=== PATIENT | female | born 1960 | race Hispanic/Latino ===

== ENCOUNTER 2017-11-13 13:53 | Inpatient (IN) | payer BC ==
[~2017-11-13] VITALS: Ht 162.6 cm; Wt 84.4 kg
[~2017-11-13 13:53] MED LIST: FISH OIL 1,0001 EAC2 PO; METFORMIN HCL500 MG PO; VIT D PO
[2017-11-13] MEDS ORDERED: SODIUM CHLORIDE 0.9% 1000ML 1,000 ML IV STA (14:18)
[2017-11-13 14:32] LABS: BASOPHILS % 0.4 % (0.0-1.0); EOSINOPHILS % 0.3 % (0.0-6.0); HEMATOCRIT 33.3 % (34.2-44.1); MEAN CORPUSCULAR HEMOGLOBIN 31.4 pg (28-32); MEAN CORPUSCULAR VOLUME 95.1 fL (81-99); MONOCYTES # (AUTO) 1.2 (0.2-0.8); MONOCYTES % 10.7 % (4.4-11.3); NEUTROPHILS # (AUTO) 8.5 (2.1-6.9); NEUTROPHILS % 79.2 % (38.7-80.0); PLATELET COUNT 126 x10e3/uL (140-360); RED CELL DISTRIBUTION WIDTH 15.1 % (11.7-14.4)
[2017-11-13 14:42] LABS: INR 1.32; PROTHROMBIN TIME 17.5 seconds (11.9-14.5)
[2017-11-13 14:43] LABS: PARTIAL THROMBOPLASTIN TIME 34.9 seconds (23.8-35.5)
[2017-11-13 14:52] LABS: ALBUMIN/GLOBULIN RATIO 0.4 (0.8-2.0); ANION GAP 12.9 mmol/L (8-16); CALCIUM 8.3 mg/dL (8.4-10.2); CREATININE, SERUM 1.04 mg/dL (0.57-1.11); POTASSIUM 3.9 mmol/L (3.5-5.1)
--- NOTE | 2017-11-13 14:59 | Diagnostic Imaging Report ---
EXAM: CHEST SINGLE (PORTABLE), AP Portable DATE: 11/13/2017 2:18 PM Time stamp on exam: 2:37 PM INDICATION: Foot infection COMPARISON: None FINDINGS: LINES/TUBES: None LUNGS: No consolidations or edema. PLEURA: No effusions or pneumothorax. HEART AND MEDIASTINUM: Mild cardiac prominence. BONES AND SOFT TISSUES: No acute findings. IMPRESSION: No acute thoracic abnormality. Signed by: Dr. Gio Del Valle DO on 11/13/2017 2:56 PM
[2017-11-13] MEDS: VANCOMYCIN 1GM/NS 250 ML 250 ML IV SCH (15:04)
--- NOTE | 2017-11-13 15:20 | Diagnostic Imaging Report ---
Exam: Right foot 2 views History: Pain Comparison: None. Findings: Soft tissue swelling and bony destruction of the distal phalanx of the second toe. Mild hindfoot arthrosis. Plantar calcaneal enthesophyte. Impression: Osteomyelitis of the second toe distal phalanx. MRI may be of benefit for evaluation of extent. Signed by: Dr. Chad Méndez M.D. on 11/13/2017 3:16 PM
[2017-11-13] MEDS ORDERED: LABETALOL HCL 5 MG/ML 20ML VIAL IV STA (15:56)
[2017-11-13] MEDS ORDERED: MORPHINE SULFATE 2 MG/ML SYR IV PRN (16:15)
[2017-11-13 18:13] LABS: BILIRUBIN,URINE 1+ (NEGATIVE); CLARITY,URINE SL CLOUDY (CLEAR); COLOR,URINE STRAW (YELLOW); KETONES,URINE NEGATIVE (NEGATIVE); LEUKOCYTE ESTERASE ,URINE NEGATIVE (NEGATIVE); NITRITE,URINE NEGATIVE (NEGATIVE); PROTEIN,URINE DIPSTICK 2+ (NEGATIVE); URINE UROBILINOGEN 8 mg/dL (0.2 - 1)
[2017-11-13 18:23] LABS: AMORPHOUS SEDIMENT,URINE FEW (FEW); BACTERIA,URINE MODERATE /HPF; EPITHELIAL CELLS,URINE FEW /LPF; HYALINE CASTS 0-1 (0-1); MUCUS,URINE FEW (RARE)
[2017-11-13] MEDS ORDERED: DEXTROSE 50% SYRINGE 50 ML IV PRN (19:15)
[2017-11-13] MEDS ORDERED: ACETAMINOPHEN/CODEINE 300MG - 30MG TAB PO PRN (19:15)
[2017-11-13 22:00] VITALS: BP 177/90
[2017-11-13] MEDS ORDERED: SODIUM CHLORIDE 0.9% 1000ML 1,000 ML ONE (22:18)
[2017-11-13 22:37] VITALS: BP 177/96
[2017-11-13] MEDS: INSULIN LISPRO 100 UNIT/1 ML 3ML VIAL SQ SCH (22:53)
[2017-11-13] MEDS: PIPER-TAZ 3.375 GM 50 ML IV SCH (22:54)
[2017-11-14] VITALS (8 sets, daily range): BP systolic 127–165; BP diastolic 66–81
[2017-11-14] MEDS: VANCOMYCIN 1GM/NS 250 ML 250 ML IV SCH ×2 (02:41→15:00)
[2017-11-14 04:25] LABS: BASOPHILS # (AUTO) 0.1 (0.0-0.1); BASOPHILS % 0.6 % (0.0-1.0); EOSINOPHILS # (AUTO) 0.1 (0.0-0.4); EOSINOPHILS % 1.7 % (0.0-6.0); HEMOGLOBIN 8.8 g/dL (12.0-16.0); LYMPHOCYTES # (AUTO) 1.4 (1.0-3.2); LYMPHOCYTES % 16.9 % (18.0-39.1); MEAN CORPUSCULAR HEMOGLOBIN 31.9 pg (28-32); MEAN CORPUSCULAR HGB CONC 33.8 g/dL (31-35); MEAN CORPUSCULAR VOLUME 94.2 fL (81-99); MONOCYTES # (AUTO) 1.4 (0.2-0.8); MONOCYTES % 16.4 % (4.4-11.3); NEUTROPHILS # (AUTO) 5.4 (2.1-6.9); NEUTROPHILS % 63.9 % (38.7-80.0); PLATELET COUNT 92 x10e3/uL (140-360); RED BLOOD COUNT 2.76 x10e6/uL (3.6-5.1); RED CELL DISTRIBUTION WIDTH 15.3 % (11.7-14.4)
[2017-11-14 04:47] LABS: ANION GAP 11.4 mmol/L (8-16); BLOOD UREA NITROGEN 17 mg/dL (7-26); BUN/CREATININE RATIO 21 (6-25); CALCIUM 7.5 mg/dL (8.4-10.2); CARBON DIOXIDE 24 mmol/L (22-29); CHLORIDE 103 mmol/L (98-107); CREATININE, SERUM 0.82 mg/dL (0.57-1.11); EST GLOMERULAR FILTRATION RATE > 60 ML/MIN (60-); GLUCOSE 152 mg/dL (74-118); POTASSIUM 3.4 mmol/L (3.5-5.1); SODIUM 135 mmol/L (136-145)
[2017-11-14 04:48] LABS: MAGNESIUM 0.9 MG/DL (1.3-2.1)
[2017-11-14] MEDS: ONDANSETRON HCL INJ 2 MG/ML VIAL IV PRN (06:14)
[2017-11-14] MEDS: PIPER-TAZ 3.375 GM 50 ML IV SCH ×3 (06:14→21:07)
[2017-11-14] MEDS: ACETAMINOPHEN 325 MG TAB PO PRN ×2 (06:14→21:08)
[2017-11-14] MEDS ORDERED: POTASSIUM CHLORIDE 20 MEQ TAB CR PO STA (07:04)
[2017-11-14] MEDS ORDERED: MAGNESIUM SULFATE 2GM/50ML 50 ML IV ONE (07:15)
[2017-11-14] MEDS: MAGNESIUM OXIDE 400 MG TAB PO SCH ×2 (08:28→17:36)
[2017-11-14] MEDS: OYST-CAL-D 500MG TABLET PO SCH ×2 (08:28→17:36)
[2017-11-14] MEDS: FAMOTIDINE 20 MG TAB PO SCH ×2 (08:28→17:36)
[2017-11-14] MEDS: INSULIN LISPRO 100 UNIT/1 ML 3ML VIAL SQ SCH ×4 (08:29→20:59)
[2017-11-14] MEDS: MELATONIN 5 MG TABLET PO PRN (21:08)
[2017-11-15] VITALS (8 sets, daily range): BP systolic 139–172; BP diastolic 60–87
[2017-11-15] MEDS: VANCOMYCIN 1GM/NS 250 ML 250 ML IV SCH ×2 (02:28→15:00)
[2017-11-15 05:00] LABS: EOSINOPHILS % 2.8 % (0.0-6.0); HEMATOCRIT 26.3 % (34.2-44.1); HEMOGLOBIN 8.8 g/dL (12.0-16.0); LYMPHOCYTES # (AUTO) 1.5 (1.0-3.2); LYMPHOCYTES % 20.7 % (18.0-39.1); MEAN CORPUSCULAR HEMOGLOBIN 31.3 pg (28-32); MEAN CORPUSCULAR HGB CONC 33.5 g/dL (31-35); MEAN CORPUSCULAR VOLUME 93.6 fL (81-99); MONOCYTES # (AUTO) 1.1 (0.2-0.8); MONOCYTES % 15.4 % (4.4-11.3); NEUTROPHILS # (AUTO) 4.3 (2.1-6.9); NEUTROPHILS % 59.8 % (38.7-80.0); PLATELET COUNT 95 x10e3/uL (140-360); RED BLOOD COUNT 2.81 x10e6/uL (3.6-5.1); RED CELL DISTRIBUTION WIDTH 15.1 % (11.7-14.4)
[2017-11-15 05:01] LABS: BASOPHILS # (AUTO) 0.1 (0.0-0.1); EOSINOPHILS # (AUTO) 0.2 (0.0-0.4)
[2017-11-15 05:05] LABS: % IRON SATURATION 18 % (15-50); ANION GAP 10.6 mmol/L (8-16); BLOOD UREA NITROGEN 14 mg/dL (7-26); BUN/CREATININE RATIO 18 (6-25); CALCIUM 7.4 mg/dL (8.4-10.2); CARBON DIOXIDE 23 mmol/L (22-29); CHLORIDE 106 mmol/L (98-107); CREATININE, SERUM 0.77 mg/dL (0.57-1.11); EST GLOMERULAR FILTRATION RATE > 60 ML/MIN (60-); GLUCOSE 99 mg/dL (74-118); IRON 38 ug/dL (50-170); MAGNESIUM 1.2 MG/DL (1.3-2.1); POTASSIUM 3.6 mmol/L (3.5-5.1); SODIUM 136 mmol/L (136-145); TOTAL IRON BINDING CAPACITY 207 ug/dL (261-478); TRANSFERRIN 148 mg/dL (180-382)
[2017-11-15 05:15] LABS: ALBUMIN 1.5 g/dL (3.5-5.0); BILIRUBIN,DIRECT 0.8 mg/dL (0.0-0.5)
[2017-11-15 05:32] LABS: CHOL/HDL RATIO 6.5 (3.0-3.6)
[2017-11-15] MEDS: PIPER-TAZ 3.375 GM 50 ML IV SCH ×3 (05:35→22:13)
[2017-11-15 06:06] LABS: FOLATE 13.6 ng/mL (7.0-15.4)
[2017-11-15] MEDS: INSULIN LISPRO 100 UNIT/1 ML 3ML VIAL SQ SCH ×4 (07:30→20:35)
[2017-11-15] MEDS: FAMOTIDINE 20 MG TAB PO SCH ×2 (08:34→17:16)
[2017-11-15] MEDS: MAGNESIUM OXIDE 400 MG TAB PO SCH ×2 (08:34→17:16)
[2017-11-15] MEDS: OYST-CAL-D 500MG TABLET PO SCH ×2 (08:37→17:16)
[2017-11-15] MEDS ORDERED: MAGNESIUM SULFATE 2GM/50ML 50 ML IV ONE (09:00)
[2017-11-15] MEDS ORDERED: MAGNESIUM OXIDE 400 MG TAB PO SCH (09:00)
[2017-11-15] MEDS: DOCUSATE SODIUM 100 MG CAP PO SCH ×2 (09:00→16:48)
[2017-11-15] MEDS ORDERED: OYST-CAL-D 500MG TABLET PO SCH (09:00)
[2017-11-15] MEDS: ASCORBIC ACID 500 MG TAB PO SCH ×2 (09:18→17:16)
[2017-11-15] MEDS: MULTIVITAMINS/MINERALS TAB PO SCH (09:18)
[2017-11-15] MEDS: ZINC SULFATE 220 MG CAP PO SCH ×2 (09:18→17:16)
[2017-11-15] MEDS ORDERED: CALCIUM GLUCONATE 10% INJ 9.3 MEQ in SODIUM CHLORIDE 0.9% 100 ML 100 ML IV ONE (11:00)
[2017-11-15] MEDS ORDERED: LIDOCAINE HCL 2% LOCAL 20 ML VIAL INJ ONE ×2 (11:30→15:30)
[2017-11-15] MEDS: COLLAGENASE 5 GM TUBE TOP SCH (16:47)
[2017-11-15] MEDS: FERROUS SULFATE 325 MG TAB PO SCH (17:16)
[2017-11-15] MEDS: MELATONIN 5 MG TABLET PO PRN (20:35)
--- NOTE | 2017-11-15 22:54 | Consultation ---
DATE OF CONSULTATION: November 15, 2017 REASON FOR CONSULTATION: Osteomyelitis. HISTORY: this patient who was seen on November 14, but dictated the next day. She is a very pleasant 57-year-old white female with history of diabetes mellitus, history of neuropathy, peripheral vascular disease, comes in with redness and swelling of her right second toe. The patient had this for few weeks now. Apparently, she took oral antibiotic without any improvement. The toe was getting progressively worse, red, and swollen. She went to see Dr. Robles who asked to come to the hospital. The patient has been seeing Dr. Robles for the toe infection for months, but it is getting progressively worse. Patient is being admitted. Infectious disease was consulted. PAST MEDICAL HISTORY: Diabetes mellitus. PAST SURGICAL HISTORY: She denies. ALLERGIES: NKA. SOCIAL HISTORY: There is no smoking, drug abuse, alcohol abuse. FAMILY HISTORY: Diabetes mellitus and hypertension. REVIEW OF SYSTEMS: HEENT: Negative. PULMONARY: Negative. CARDIAC: Negative. : Negative. SKIN: There is no rash. PHYSICAL EXAMINATION: GENERAL: She is currently alert, oriented, does not seem to be in acute distress. VITAL SIGNS: Stable, currently afebrile. HEENT: She does not appear icteric. Normocephalic. NECK: Supple. No JVD. No lymphadenopathy. No thyromegaly. CHEST: Clear bilaterally. HEART: S1 and S2. No S3, S4, murmur. ABDOMEN: Soft. Bowel sounds present. No tenderness. EXTREMITIES: No edema. On right third and second toe, there is erythema, there is edema, there is an ulcer toe, deep subcutaneous tissue with somewhat skin discoloration. LABS: White count 10.72, hemoglobin 11, hematocrit 33. Sodium of 136, potassium 3.6, creatinine 0.77. Bilirubin was 1.7, albumin 1.5. IMPRESSION: Osteomyelitis of the foot. Agree with magnetic resonance imaging. Agree with surgical debridement . Also recommend vascular workup. Agree with vancomycin and Zosyn for now. Will need a peripherally inserted central catheter line, 8 weeks of intravenous antibiotic. Will arrange outpatient intravenous antibiotic. Will follow with you. Job#: [id number]
[2017-11-16] VITALS (7 sets, daily range): BP systolic 130–171; BP diastolic 67–91
[2017-11-16] MEDS: VANCOMYCIN 1GM/NS 250 ML 250 ML IV SCH ×2 (02:42→16:11)
[2017-11-16 05:31] LABS: BASOPHILS # (AUTO) 0.1 (0.0-0.1); EOSINOPHILS # (AUTO) 0.2 (0.0-0.4); EOSINOPHILS % 2.1 % (0.0-6.0); HEMATOCRIT 25.8 % (34.2-44.1); HEMOGLOBIN 8.6 g/dL (12.0-16.0); LYMPHOCYTES # (AUTO) 1.4 (1.0-3.2); MEAN CORPUSCULAR HEMOGLOBIN 31.2 pg (28-32); MEAN CORPUSCULAR HGB CONC 33.3 g/dL (31-35); MEAN CORPUSCULAR VOLUME 93.5 fL (81-99); MONOCYTES # (AUTO) 1.1 (0.2-0.8); NEUTROPHILS # (AUTO) 4.5 (2.1-6.9); NEUTROPHILS % 62.6 % (38.7-80.0); PLATELET COUNT 94 x10e3/uL (140-360); RED BLOOD COUNT 2.76 x10e6/uL (3.6-5.1)
[2017-11-16] MEDS: PIPER-TAZ 3.375 GM 50 ML IV SCH ×3 (05:42→21:26)
[2017-11-16 05:57] LABS: ALANINE AMINOTRANSFERASE 18 IU/L (0-55); ALBUMIN 1.5 g/dL (3.5-5.0); ALKALINE PHOSPHATASE 128 IU/L (40-150); ANION GAP 10.9 mmol/L (8-16); BILIRUBIN,DIRECT 0.8 mg/dL (0.0-0.5); BLOOD UREA NITROGEN 14 mg/dL (7-26); BUN/CREATININE RATIO 19 (6-25); CARBON DIOXIDE 23 mmol/L (22-29); CHLORIDE 107 mmol/L (98-107); CREATININE, SERUM 0.73 mg/dL (0.57-1.11); EST GLOMERULAR FILTRATION RATE > 60 ML/MIN (60-); GLUCOSE 84 mg/dL (74-118); MAGNESIUM 1.3 MG/DL (1.3-2.1); POTASSIUM 3.9 mmol/L (3.5-5.1); SODIUM 137 mmol/L (136-145)
[2017-11-16] MEDS: INSULIN LISPRO 100 UNIT/1 ML 3ML VIAL SQ SCH ×4 (07:30→21:00)
[2017-11-16] MEDS: COLLAGENASE 5 GM TUBE TOP SCH (09:00)
[2017-11-16] MEDS: ZINC SULFATE 220 MG CAP PO SCH ×2 (09:09→16:35)
[2017-11-16] MEDS: FERROUS SULFATE 325 MG TAB PO SCH ×2 (09:09→16:35)
[2017-11-16] MEDS: DOCUSATE SODIUM 100 MG CAP PO SCH ×2 (09:09→16:35)
[2017-11-16] MEDS: MULTIVITAMINS/MINERALS TAB PO SCH (09:09)
[2017-11-16] MEDS: ASCORBIC ACID 500 MG TAB PO SCH ×2 (09:09→16:35)
[2017-11-16] MEDS: FAMOTIDINE 20 MG TAB PO SCH ×2 (09:09→16:35)
[2017-11-16] MEDS: MAGNESIUM OXIDE 400 MG TAB PO SCH ×3 (09:09→20:09)
[2017-11-16] MEDS: OYST-CAL-D 500MG TABLET PO SCH ×3 (09:09→20:09)
--- NOTE | 2017-11-16 10:28 | Diagnostic Imaging Report ---
PROCEDURE: CHEST XRAY LINE PLACEMENT COMPARISON: None. INDICATIONS: PICC LINE PLACEMENT FINDINGS: See conclusion CONCLUSION: Tip of right upper extremity PICC projects over the low superior vena cava. Lung volumes are low with subsegmental atelectasis in the bases. Dictated by: Thee Hong M.D. on 11/16/2017 at 10:36 Electronically approved by: Thee Hong M.D. on 11/16/2017 at 10:36
--- NOTE | 2017-11-16 11:05 | Diagnostic Imaging Report ---
PROCEDURE:US ABDOMEN LIMITED COMPARISON:None. INDICATIONS:TRANSMINITIS TECHNIQUE: Menezes-scale and color doppler transverse and longitudinal images of the right upper quadrant of the abdomen were obtained. FINDINGS: Liver: 16.9 cm in length in the right midclavicular line. Coarsened parenchymal echotexture with nodularity. No focal mass. Main portal vein: 1.1 cm in caliber. Hepatopedal flow. Gallbladder: No shadowing calculus, wall thickening or pericholecystic fluid. Common Bile Duct: 0.6 cm in caliber. Sonographic Solano's sign: Reported as negative. Right kidney: 12.7 cm in length . Normal renal cortical echogenicity. No solid masses or hydronephrosis. Pancreas: Poorly visualized due to overlying bowel gas. Inferior vena cava: Patent Aorta: Non-aneurysmal Ascites: Small volume ascites throughout the abdomen. CONCLUSION: Hepatic cirrhosis with portal hypertension evidenced by small volume ascites. Dictated by: Thee Hong M.D. on 11/16/2017 at 11:13 Electronically approved by: Thee Hong M.D. on 11/16/2017 at 11:13
--- NOTE | 2017-11-16 11:27 | Diagnostic Imaging Report ---
Exam: Right foot 3 views History: Status post debridement Comparison: 11/13/2017 Findings: Interval debridement and amputation of the distal phalanx of the second digit. Expected subcutaneous gas and soft tissue swelling. No acute fracture. Impression: Postsurgical changes of the second digit as above. Signed by: Dr. Thee Hong M.D. on 11/16/2017 11:23 AM
[2017-11-16] MEDS: HYDRALAZINE HCL 20 MG/ML VIAL IV PRN ×2 (12:34→21:44)
[2017-11-16] MEDS ORDERED: MORPHINE SULFATE INJ 4 MG/ML INJ IV PRN (13:00)
[2017-11-16] MEDS ORDERED: MAGNESIUM SULFATE 2GM/50ML 50 ML IV ONE (19:15)
[2017-11-16] MEDS ORDERED: CALCIUM GLUCONATE 10% INJ 9.3 MEQ in SODIUM CHLORIDE 0.9% 100 ML 100 ML IV ONE (19:15)
[2017-11-16] MEDS: CHOLESTYRAMINE 4 GM PACKET PO SCH (20:09)
[2017-11-17] VITALS (7 sets, daily range): BP systolic 98–167; BP diastolic 53–95
[2017-11-17] MEDS: VANCOMYCIN 1GM/NS 250 ML 250 ML IV SCH ×2 (02:35→15:15)
[2017-11-17] MEDS: PIPER-TAZ 3.375 GM 50 ML IV SCH ×3 (05:14→21:44)
[2017-11-17 05:54] LABS: BASOPHILS # (AUTO) 0.1 (0.0-0.1); BASOPHILS % 0.7 % (0.0-1.0); EOSINOPHILS # (AUTO) 0.1 (0.0-0.4); EOSINOPHILS % 1.8 % (0.0-6.0); HEMATOCRIT 25.9 % (34.2-44.1); HEMOGLOBIN 8.6 g/dL (12.0-16.0); LYMPHOCYTES # (AUTO) 1.2 (1.0-3.2); LYMPHOCYTES % 18.1 % (18.0-39.1); MEAN CORPUSCULAR HGB CONC 33.2 g/dL (31-35); MEAN CORPUSCULAR VOLUME 93.5 fL (81-99); MONOCYTES % 14.2 % (4.4-11.3); NEUTROPHILS # (AUTO) 4.3 (2.1-6.9); NEUTROPHILS % 64.8 % (38.7-80.0); PLATELET COUNT 95 x10e3/uL (140-360); RED BLOOD COUNT 2.77 x10e6/uL (3.6-5.1); RED CELL DISTRIBUTION WIDTH 15.4 % (11.7-14.4)
[2017-11-17 06:16] LABS: ANION GAP 9.8 mmol/L (8-16); BLOOD UREA NITROGEN 17 mg/dL (7-26); BUN/CREATININE RATIO 18 (6-25); CALCIUM 7.9 mg/dL (8.4-10.2); CARBON DIOXIDE 24 mmol/L (22-29); CHLORIDE 107 mmol/L (98-107); CREATININE, SERUM 0.92 mg/dL (0.57-1.11); EST GLOMERULAR FILTRATION RATE > 60 ML/MIN (60-); GLUCOSE 139 mg/dL (74-118); MAGNESIUM 1.7 MG/DL (1.3-2.1); PHOSPHORUS 2.7 MG/DL (2.3-4.7); POTASSIUM 3.8 mmol/L (3.5-5.1); SODIUM 137 mmol/L (136-145)
[2017-11-17] MEDS: INSULIN LISPRO 100 UNIT/1 ML 3ML VIAL SQ SCH ×4 (07:30→19:57)
[2017-11-17] MEDS: COLLAGENASE 5 GM TUBE TOP SCH (08:19)
[2017-11-17] MEDS: FAMOTIDINE 20 MG TAB PO SCH ×2 (08:59→16:44)
[2017-11-17] MEDS: FERROUS SULFATE 325 MG TAB PO SCH ×2 (08:59→16:44)
[2017-11-17] MEDS: MULTIVITAMINS/MINERALS TAB PO SCH (08:59)
[2017-11-17] MEDS: DOCUSATE SODIUM 100 MG CAP PO SCH ×2 (08:59→16:44)
[2017-11-17] MEDS: ZINC SULFATE 220 MG CAP PO SCH ×2 (08:59→16:44)
[2017-11-17] MEDS: MAGNESIUM OXIDE 400 MG TAB PO SCH ×3 (08:59→20:06)
[2017-11-17] MEDS: OYST-CAL-D 500MG TABLET PO SCH ×3 (08:59→20:06)
[2017-11-17] MEDS: ASCORBIC ACID 500 MG TAB PO SCH ×2 (08:59→16:44)
[2017-11-17] MEDS: CHOLESTYRAMINE 4 GM PACKET PO SCH ×3 (08:59→20:07)
[2017-11-17] MEDS: HYDRALAZINE HCL 20 MG/ML VIAL IV PRN (13:30)
[2017-11-17] MEDS ORDERED: MAGNESIUM SULFATE 2GM/50ML 50 ML IV ONE (21:45)
[2017-11-17] MEDS ORDERED: CALCIUM GLUCONATE 10% INJ 4.65 MEQ in SODIUM CHLORIDE 0.9% 50ML 50 ML IV ONE (22:00)
[2017-11-18] VITALS: BP 157/83
[2017-11-18 02:44] LABS: BASOPHILS # (AUTO) 0.1 (0.0-0.1); BASOPHILS % 0.9 % (0.0-1.0); EOSINOPHILS # (AUTO) 0.2 (0.0-0.4); EOSINOPHILS % 2.7 % (0.0-6.0); HEMATOCRIT 24.8 % (34.2-44.1); HEMOGLOBIN 8.2 g/dL (12.0-16.0); LYMPHOCYTES # (AUTO) 1.3 (1.0-3.2); MEAN CORPUSCULAR HEMOGLOBIN 31.1 pg (28-32); MEAN CORPUSCULAR HGB CONC 33.1 g/dL (31-35); MEAN CORPUSCULAR VOLUME 93.9 fL (81-99); MONOCYTES # (AUTO) 1.1 (0.2-0.8); MONOCYTES % 16.8 % (4.4-11.3); NEUTROPHILS # (AUTO) 4.1 (2.1-6.9); NEUTROPHILS % 60.5 % (38.7-80.0); PLATELET COUNT 85 x10e3/uL (140-360); RED BLOOD COUNT 2.64 x10e6/uL (3.6-5.1); RED CELL DISTRIBUTION WIDTH 15.6 % (11.7-14.4)
[2017-11-18] MEDS: VANCOMYCIN 1GM/NS 250 ML 250 ML IV SCH (03:00)
[2017-11-18 03:02] LABS: ANION GAP 10.6 mmol/L (8-16); BLOOD UREA NITROGEN 18 mg/dL (7-26); BUN/CREATININE RATIO 22 (6-25); CARBON DIOXIDE 23 mmol/L (22-29); CHLORIDE 108 mmol/L (98-107); CREATININE, SERUM 0.82 mg/dL (0.57-1.11); EST GLOMERULAR FILTRATION RATE > 60 ML/MIN (60-); GLUCOSE 120 mg/dL (74-118); MAGNESIUM 1.9 MG/DL (1.3-2.1); POTASSIUM 3.6 mmol/L (3.5-5.1); SODIUM 138 mmol/L (136-145)
[2017-11-18 04:00] VITALS: BP 143/74
[2017-11-18] MEDS: PIPER-TAZ 3.375 GM 50 ML IV SCH ×3 (05:27→22:24)
[2017-11-18] MEDS: INSULIN LISPRO 100 UNIT/1 ML 3ML VIAL SQ SCH ×4 (07:30→22:28)
[2017-11-18 08:00] VITALS: BP 139/86
[2017-11-18] MEDS: MAGNESIUM OXIDE 400 MG TAB PO SCH ×3 (08:00→22:24)
[2017-11-18] MEDS: OYST-CAL-D 500MG TABLET PO SCH ×3 (08:00→22:24)
[2017-11-18] MEDS: LACTULOSE SYRUP 20 GM/30 ML UDC PO SCH ×3 (08:00→22:24)
[2017-11-18] MEDS: FERROUS SULFATE 325 MG TAB PO SCH ×2 (08:00→17:00)
[2017-11-18] MEDS: MULTIVITAMINS/MINERALS TAB PO SCH (08:00)
[2017-11-18] MEDS: DOCUSATE SODIUM 100 MG CAP PO SCH ×2 (08:00→17:00)
[2017-11-18] MEDS: ASCORBIC ACID 500 MG TAB PO SCH ×2 (08:00→17:00)
[2017-11-18] MEDS: ZINC SULFATE 220 MG CAP PO SCH ×2 (08:00→17:00)
[2017-11-18] MEDS: FAMOTIDINE 20 MG TAB PO SCH ×2 (08:00→16:30)
[2017-11-18] MEDS: CHOLESTYRAMINE 4 GM PACKET PO SCH ×3 (09:00→22:24)
[2017-11-18] MEDS: COLLAGENASE 5 GM TUBE TOP SCH (09:00)
[2017-11-18] MEDS ORDERED: Multivitamins/Minerals PO (09:03)
[2017-11-18] MEDS ORDERED: TYLENOL # 31 EA PO (09:03)
[2017-11-18] MEDS ORDERED: COLACE100 M1 PO (09:03)
[2017-11-18] MEDS ORDERED: FERROUS SULFAT325 MG PO (09:03)
[2017-11-18] MEDS ORDERED: ZINC SULFATE220 M1 PO (09:03)
[2017-11-18] MEDS ORDERED: MAGNESIUM OXID400 MG PO (09:03)
[2017-11-18] MEDS ORDERED: Calcium Carbonate PO (09:03)
[2017-11-18] MEDS ORDERED: ASCORBIC ACID500 MG PO (09:03)
[2017-11-18] MEDS ORDERED: LACTULOSE20 GM/30 M PO (09:03)
[2017-11-18] MEDS ORDERED: FUROSEMIDE INJ 10 MG/ML 4 ML VIAL IV NR (09:30)
[2017-11-18 12:00] VITALS: BP 178/89
--- NOTE | 2017-11-18 13:14 | Progress Note ---
DATE: November 18, 2017 SUBJECTIVE: Patient seen at bedside. Doing better. Denies any history of fever, chills, nausea or vomiting since she has been in the hospital getting her IV antibiotics. OBJECTIVE VITAL SIGNS: Afebrile. Pulse rate 86, respirations 20. Blood pressure 139/86. O2 saturation 99%. LABS: Noted. Has a white blood cell count dropping to 6.7, hemoglobin 8.2, hematocrit 24.8 with a platelet count of 85. EXTREMITIES: Ulceration to the distal aspect of the 2nd toe right foot is getting better. Some granulation tissue noted. Showing some granulation tissue noted to the medial ulceration of the 2nd toe. It is down to bone distally and down to subcutaneous tissue close to bone medially. The swelling seems to be getting somewhat better. There is decreased and minimal foul smell noted. Decreased cellulitis. She does have pitting edema noted to both lower extremities. Pedal pulses are palpable. ASSESSMENT: Osteomyelitis with a grade IV and grade III ulceration, 2nd toe, right foot. PLAN: Will continue to treat conservatively. Ulcerations may be debrided once again tomorrow. Will continue IV antibiotics. Continue local wound care. Will try to salvage toe. Patient aware if not responsive amputation may need to be done. Job#: [id number]
--- NOTE | 2017-11-18 13:53 | Diagnostic Imaging Report ---
Exam: Right foot 3 views History: Pain Comparison: November 16, 2017 Findings: No fracture. Amputation of the distal phalanx. Bone demineralization involving the phalanges of the second toe, greater involving the middle phalanx. Impression: Post surgical change. Bone demineralization involving the phalanges of the second toe. MRI may be of benefit for evaluation of extent of osteomyelitis. Signed by: Dr. Chad Méndez M.D. on 11/18/2017 1:50 PM
[2017-11-18 16:00] VITALS: BP 144/77
[2017-11-18] MEDS: VANCOMYCIN HCL 1.5 GM in SODIUM CHLORIDE 0.9% 250ML 300 ML IV SCH (18:06)
[2017-11-18 20:00] VITALS: BP 172/95
[2017-11-19] VITALS (7 sets, daily range): BP systolic 149–185; BP diastolic 90–94
[2017-11-19 03:49] LABS: BASOPHILS # (AUTO) 0.1 (0.0-0.1); BASOPHILS % 1.1 % (0.0-1.0); EOSINOPHILS # (AUTO) 0.2 (0.0-0.4); EOSINOPHILS % 2.3 % (0.0-6.0); HEMATOCRIT 25.5 % (34.2-44.1); HEMOGLOBIN 8.6 g/dL (12.0-16.0); LYMPHOCYTES # (AUTO) 1.1 (1.0-3.2); LYMPHOCYTES % 16.1 % (18.0-39.1); MEAN CORPUSCULAR HEMOGLOBIN 31.7 pg (28-32); MEAN CORPUSCULAR HGB CONC 33.7 g/dL (31-35); MEAN CORPUSCULAR VOLUME 94.1 fL (81-99); MONOCYTES # (AUTO) 1.3 (0.2-0.8); MONOCYTES % 18.8 % (4.4-11.3); NEUTROPHILS # (AUTO) 4.3 (2.1-6.9); NEUTROPHILS % 61.6 % (38.7-80.0); PLATELET COUNT 88 x10e3/uL (140-360); RED BLOOD COUNT 2.71 x10e6/uL (3.6-5.1); RED CELL DISTRIBUTION WIDTH 15.5 % (11.7-14.4)
[2017-11-19 04:05] LABS: ALANINE AMINOTRANSFERASE 22 IU/L (0-55); ALBUMIN 1.6 g/dL (3.5-5.0); ALKALINE PHOSPHATASE 153 IU/L (40-150); ANION GAP 10.8 mmol/L (8-16); BILIRUBIN,DIRECT 0.7 mg/dL (0.0-0.5); BLOOD UREA NITROGEN 15 mg/dL (7-26); BUN/CREATININE RATIO 17 (6-25); CALCIUM 8.3 mg/dL (8.4-10.2); CARBON DIOXIDE 22 mmol/L (22-29); CHLORIDE 110 mmol/L (98-107); CREATININE, SERUM 0.88 mg/dL (0.57-1.11); EST GLOMERULAR FILTRATION RATE > 60 ML/MIN (60-); GLUCOSE 118 mg/dL (74-118); MAGNESIUM 1.5 MG/DL (1.3-2.1); POTASSIUM 3.8 mmol/L (3.5-5.1); SODIUM 139 mmol/L (136-145)
[2017-11-19] MEDS: PIPER-TAZ 3.375 GM 50 ML IV SCH ×3 (05:32→20:47)
[2017-11-19] MEDS: INSULIN LISPRO 100 UNIT/1 ML 3ML VIAL SQ SCH ×4 (08:00→20:49)
[2017-11-19] MEDS: FAMOTIDINE 20 MG TAB PO SCH ×2 (08:00→16:30)
[2017-11-19] MEDS: FERROUS SULFATE 325 MG TAB PO SCH ×2 (08:00→17:00)
[2017-11-19] MEDS: ASCORBIC ACID 500 MG TAB PO SCH ×2 (09:00→17:00)
[2017-11-19] MEDS: DOCUSATE SODIUM 100 MG CAP PO SCH ×2 (09:00→17:00)
[2017-11-19] MEDS: LACTULOSE SYRUP 20 GM/30 ML UDC PO SCH ×2 (09:00→17:00)
[2017-11-19] MEDS: COLLAGENASE 5 GM TUBE TOP SCH (09:00)
[2017-11-19] MEDS: OYST-CAL-D 500MG TABLET PO SCH ×3 (09:00→20:47)
[2017-11-19] MEDS: ZINC SULFATE 220 MG CAP PO SCH ×2 (09:00→17:00)
[2017-11-19] MEDS: CHOLESTYRAMINE 4 GM PACKET PO SCH (09:00)
[2017-11-19] MEDS: MULTIVITAMINS/MINERALS TAB PO SCH (09:00)
[2017-11-19] MEDS: MAGNESIUM OXIDE 400 MG TAB PO SCH ×3 (09:00→17:42)
--- NOTE | 2017-11-19 09:14 | Diagnostic Imaging Report ---
PROCEDURE:US ABDOMEN LIMITED COMPARISON:11/16/2017. INDICATIONS:R/O ASCITES TECHNIQUE: Limited grayscale images of the 4 quadrants of the abdomen were obtained. FINDINGS: Moderate anechoic ascites throughout the abdomen. Cirrhotic liver incidentally noted. CONCLUSION: Moderate ascites. Dictated by: Thee Hong M.D. on 11/19/2017 at 9:22 Electronically approved by: Thee Hong M.D. on 11/19/2017 at 9:22
[2017-11-19] MEDS: ONDANSETRON HCL INJ 2 MG/ML VIAL IV PRN (10:07)
[2017-11-19] MEDS ORDERED: CHOLESTYRAMINE 4 GM PACKET PO PRN (11:15)
[2017-11-19] MEDS: FUROSEMIDE INJ 10 MG/ML 4 ML VIAL IV SCH (11:30)
[2017-11-19 12:22] LABS: INR 1.26; PROTHROMBIN TIME 16.9 seconds (11.9-14.5)
[2017-11-19 12:23] LABS: PARTIAL THROMBOPLASTIN TIME 39.5 seconds (23.8-35.5)
--- NOTE | 2017-11-19 16:41 | Diagnostic Imaging Report ---
Date and Time: Procedure: Ultrasound-guided paracentesis restrictive preparation operator: Dr. Hong Pre-operative diagnosis: Cirrhosis, ascites Post-operative diagnosis: Cirrhosis, ascites Conscious Sedation: None Additional Medications: Lidocaine 1% for local anesthesia Fluoroscopy time: 0 Dose-area Product: 0 mGycm2. Frontal Air Kerma: 0 Contrast used: 0 Estimated blood loss: Minimal Specimens: 2900 cc straw-colored fluid Implants: None Blood products administered: None Complications: No immediate Condition at completion: Stable Disposition: Returned to floor DISCUSSION: Informed consent was obtained and documented in the medical record. The patient was placed in the supine position on the sonographic table. The right abdomen was prepped and draped in standard sterile fashion. A suitable percutaneous approach was identified to the peritoneal space. 1% lidocaine was infiltrated into the skin and subcutaneous tissues for local anesthesia. Then under continuous sonographic guidance a 5 Mosotho Yueh needle catheter was advanced into the ascitic fluid. The catheter was advanced off the needle and connected to vacuum bottle with subsequent aspiration of 2900 cc straw-colored fluid. The catheter was removed and a sterile dressing was applied. The patient tolerated the procedure well without immediate complication. FINDINGS: Moderate ascites. IMPRESSION: Successful ultrasound-guided paracentesis with evacuation of 2900 cc straw-colored fluid. Signed by: Dr. Thee Hong M.D. on 11/19/2017 4:37 PM
[2017-11-19] MEDS: VANCOMYCIN HCL 1.5 GM in SODIUM CHLORIDE 0.9% 250ML 300 ML IV SCH (17:30)
[2017-11-20] VITALS (10 sets, daily range): BP systolic 128–173; BP diastolic 59–100
[2017-11-20 04:14] LABS: BASOPHILS # (AUTO) 0.1 (0.0-0.1); BASOPHILS % 0.7 % (0.0-1.0); EOSINOPHILS # (AUTO) 0.2 (0.0-0.4); EOSINOPHILS % 2.8 % (0.0-6.0); LYMPHOCYTES # (AUTO) 1.3 (1.0-3.2); LYMPHOCYTES % 18.6 % (18.0-39.1); MEAN CORPUSCULAR HEMOGLOBIN 31.4 pg (28-32); MONOCYTES # (AUTO) 1.3 (0.2-0.8); NEUTROPHILS # (AUTO) 3.9 (2.1-6.9); NEUTROPHILS % 58.8 % (38.7-80.0); PLATELET COUNT 91 x10e3/uL (140-360); RED BLOOD COUNT 2.42 x10e6/uL (3.6-5.1); RED CELL DISTRIBUTION WIDTH 15.2 % (11.7-14.4)
[2017-11-20 04:16] LABS: HEMOGLOBIN 7.6 g/dL (12.0-16.0)
[2017-11-20] MEDS ORDERED: SODIUM CHLORIDE 0.9% 250ML 250 ML IV ONE (04:30)
[2017-11-20 04:36] LABS: ALBUMIN 1.4 g/dL (3.5-5.0); ANION GAP 9.9 mmol/L (8-16); BILIRUBIN,DIRECT 0.5 mg/dL (0.0-0.5); CALCIUM 7.7 mg/dL (8.4-10.2); CREATININE, SERUM 1.03 mg/dL (0.57-1.11); MAGNESIUM 1.3 MG/DL (1.3-2.1); POTASSIUM 3.9 mmol/L (3.5-5.1)
[2017-11-20 04:43] LABS: B-TYPE NATRIURETIC PEPTIDE2 128.2 pg/mL (0-100)
[2017-11-20] MEDS: PIPER-TAZ 3.375 GM 50 ML IV SCH ×2 (05:30→14:43)
[2017-11-20] MEDS: FAMOTIDINE 20 MG TAB PO SCH ×2 (08:45→17:11)
[2017-11-20] MEDS: LACTULOSE SYRUP 20 GM/30 ML UDC PO SCH ×2 (08:46→17:00)
[2017-11-20] MEDS: FUROSEMIDE INJ 10 MG/ML 4 ML VIAL IV SCH (08:46)
[2017-11-20] MEDS: ASCORBIC ACID 500 MG TAB PO SCH ×2 (08:46→17:11)
[2017-11-20] MEDS: INSULIN LISPRO 100 UNIT/1 ML 3ML VIAL SQ SCH ×4 (08:46→21:19)
[2017-11-20] MEDS: OYST-CAL-D 500MG TABLET PO SCH ×3 (08:46→21:18)
[2017-11-20] MEDS: DOCUSATE SODIUM 100 MG CAP PO SCH ×2 (08:46→17:11)
[2017-11-20] MEDS: ZINC SULFATE 220 MG CAP PO SCH ×2 (08:46→17:11)
[2017-11-20] MEDS: MAGNESIUM OXIDE 400 MG TAB PO SCH ×3 (08:46→21:18)
[2017-11-20] MEDS: FERROUS SULFATE 325 MG TAB PO SCH ×2 (08:46→17:11)
[2017-11-20] MEDS: MULTIVITAMINS/MINERALS TAB PO SCH (08:46)
[2017-11-20] MEDS: COLLAGENASE 5 GM TUBE TOP SCH (10:03)
[2017-11-20] MEDS ORDERED: CALCIUM GLUCONATE 10% INJ 13.95 MEQ in SODIUM CHLORIDE 0.9% 100 ML 100 ML IV ONE (12:30)
[2017-11-20] MEDS: VANCOMYCIN HCL 1.5 GM in SODIUM CHLORIDE 0.9% 250ML 300 ML IV SCH (17:58)
[2017-11-20] MEDS ORDERED: SODIUM CHLORIDE 0.9% 250ML 250 ML ONE ×2 (18:16→21:59)
[2017-11-21] VITALS (7 sets, daily range): BP systolic 130–166; BP diastolic 70–99
[2017-11-21 05:28] LABS: BASOPHILS # (AUTO) 0.1 (0.0-0.1); BASOPHILS % 0.6 % (0.0-1.0); EOSINOPHILS # (AUTO) 0.2 (0.0-0.4); EOSINOPHILS % 2.1 % (0.0-6.0); HEMATOCRIT 29.3 % (34.2-44.1); LYMPHOCYTES # (AUTO) 1.3 (1.0-3.2); LYMPHOCYTES % 16.6 % (18.0-39.1); MEAN CORPUSCULAR HEMOGLOBIN 31.2 pg (28-32); MEAN CORPUSCULAR HGB CONC 34.1 g/dL (31-35); MEAN CORPUSCULAR VOLUME 91.3 fL (81-99); MONOCYTES # (AUTO) 1.4 (0.2-0.8); MONOCYTES % 17.8 % (4.4-11.3); NEUTROPHILS % 62.6 % (38.7-80.0); PLATELET COUNT 82 x10e3/uL (140-360); RED BLOOD COUNT 3.21 x10e6/uL (3.6-5.1); RED CELL DISTRIBUTION WIDTH 15.6 % (11.7-14.4)
[2017-11-21 05:54] LABS: ALBUMIN 1.6 g/dL (3.5-5.0); ANION GAP 7.9 mmol/L (8-16); BILIRUBIN,DIRECT 0.8 mg/dL (0.0-0.5); CALCIUM 8.6 mg/dL (8.4-10.2); CREATININE, SERUM 1.01 mg/dL (0.57-1.11); MAGNESIUM 1.3 MG/DL (1.3-2.1); POTASSIUM 3.9 mmol/L (3.5-5.1)
[2017-11-21] MEDS: INSULIN LISPRO 100 UNIT/1 ML 3ML VIAL SQ SCH ×4 (07:30→21:00)
[2017-11-21] MEDS: PIPER-TAZ 3.375 GM 50 ML IV SCH ×3 (09:25→23:02)
[2017-11-21] MEDS: LACTULOSE SYRUP 20 GM/30 ML UDC PO SCH ×2 (09:27→17:00)
[2017-11-21] MEDS: FAMOTIDINE 20 MG TAB PO SCH ×2 (09:27→18:05)
[2017-11-21] MEDS: DOCUSATE SODIUM 100 MG CAP PO SCH ×2 (09:27→18:05)
[2017-11-21] MEDS: OYST-CAL-D 500MG TABLET PO SCH ×3 (09:27→21:55)
[2017-11-21] MEDS: ASCORBIC ACID 500 MG TAB PO SCH ×2 (09:27→18:05)
[2017-11-21] MEDS: FUROSEMIDE INJ 10 MG/ML 4 ML VIAL IV SCH (09:27)
[2017-11-21] MEDS: ZINC SULFATE 220 MG CAP PO SCH ×2 (09:27→18:05)
[2017-11-21] MEDS: MAGNESIUM OXIDE 400 MG TAB PO SCH ×3 (09:27→21:55)
[2017-11-21] MEDS: FERROUS SULFATE 325 MG TAB PO SCH ×2 (09:27→18:05)
[2017-11-21] MEDS: MULTIVITAMINS/MINERALS TAB PO SCH (09:27)
[2017-11-21] MEDS: TRAMADOL HCL 50 MG TAB PO PRN (10:00)
[2017-11-21] MEDS: COLLAGENASE 5 GM TUBE TOP SCH (10:15)
--- NOTE | 2017-11-21 11:17 | Progress Note ---
DATE: November 21, 2017 SUBJECTIVE: Patient is seen at bedside. Doing somewhat better. Denies any history of fever, chills, nausea, or vomiting. Decreased swelling to both lower extremities. OBJECTIVE VITAL SIGNS: Afebrile, pulse rate 85, respirations 18, blood pressure 137/80, and O2 saturation 98%. EXTREMITIES: Second toe to the right lower extremity looking better. Granular fibrotic base noted. Decreased foul smell. Decreased swelling. Decreased pitting edema to both lower extremities. Pedal pulses are palpable. LABS: Noted. White blood cell count of 7.9, hemoglobin 10.0 with a platelet count of 82. ASSESSMENT: Grade 3 ulcer distally second toe right foot, grade 3 ulcer medial aspect second digit right foot, osteomyelitis responding to IV antibiotics and serial debridements. PLAN: We will continue IV antibiotics. Continue local wound care. Continue offloading. Patient may contemplate [facility] transfer some time next week. Job#: [id number] CARLA
[2017-11-21] MEDS: VANCOMYCIN HCL 1.5 GM in SODIUM CHLORIDE 0.9% 250ML 300 ML IV SCH (18:17)
[2017-11-22] VITALS (8 sets, daily range): BP systolic 117–184; BP diastolic 74–97
[2017-11-22 06:17] LABS: BASOPHILS # (AUTO) 0.1 (0.0-0.1); BASOPHILS % 0.8 % (0.0-1.0); EOSINOPHILS # (AUTO) 0.2 (0.0-0.4); EOSINOPHILS % 2.3 % (0.0-6.0); HEMATOCRIT 32.5 % (34.2-44.1); LYMPHOCYTES % 12.4 % (18.0-39.1); MEAN CORPUSCULAR HEMOGLOBIN 31.3 pg (28-32); MEAN CORPUSCULAR HGB CONC 33.8 g/dL (31-35); MEAN CORPUSCULAR VOLUME 92.3 fL (81-99); MONOCYTES # (AUTO) 1.3 (0.2-0.8); MONOCYTES % 16.6 % (4.4-11.3); NEUTROPHILS # (AUTO) 5.3 (2.1-6.9); NEUTROPHILS % 67.5 % (38.7-80.0); PLATELET COUNT 90 x10e3/uL (140-360); RED BLOOD COUNT 3.52 x10e6/uL (3.6-5.1); RED CELL DISTRIBUTION WIDTH 15.6 % (11.7-14.4)
[2017-11-22] MEDS: PIPER-TAZ 3.375 GM 50 ML IV SCH ×3 (06:21→22:38)
[2017-11-22 07:01] LABS: ANION GAP 10.7 mmol/L (8-16); CALCIUM 8.3 mg/dL (8.4-10.2); CREATININE, SERUM 1.16 mg/dL (0.57-1.11); MAGNESIUM 1.4 MG/DL (1.3-2.1); POTASSIUM 3.7 mmol/L (3.5-5.1)
[2017-11-22] MEDS: DOCUSATE SODIUM 100 MG CAP PO SCH ×2 (09:10→17:36)
[2017-11-22] MEDS: MAGNESIUM OXIDE 400 MG TAB PO SCH ×3 (09:10→21:12)
[2017-11-22] MEDS: ZINC SULFATE 220 MG CAP PO SCH ×2 (09:10→17:36)
[2017-11-22] MEDS: FAMOTIDINE 20 MG TAB PO SCH ×2 (09:10→17:36)
[2017-11-22] MEDS: MULTIVITAMINS/MINERALS TAB PO SCH (09:10)
[2017-11-22] MEDS: OYST-CAL-D 500MG TABLET PO SCH ×3 (09:10→21:13)
[2017-11-22] MEDS: RIFAXIMIN 550 MG TABLET PO SCH ×2 (09:10→17:36)
[2017-11-22] MEDS: FUROSEMIDE INJ 10 MG/ML 4 ML VIAL IV SCH (09:10)
[2017-11-22] MEDS: ASCORBIC ACID 500 MG TAB PO SCH ×2 (09:10→17:36)
[2017-11-22] MEDS: FERROUS SULFATE 325 MG TAB PO SCH ×2 (09:10→17:36)
[2017-11-22] MEDS: INSULIN LISPRO 100 UNIT/1 ML 3ML VIAL SQ SCH ×4 (09:11→21:14)
[2017-11-22] MEDS: COLLAGENASE 5 GM TUBE TOP SCH (09:41)
[2017-11-22] MEDS: VANCOMYCIN HCL 1.5 GM in SODIUM CHLORIDE 0.9% 250ML 300 ML IV SCH (18:30)
[2017-11-22] MEDS: TRAMADOL HCL 50 MG TAB PO PRN (18:37)
[2017-11-23] VITALS (7 sets, daily range): BP systolic 127–189; BP diastolic 59–89
[2017-11-23] MEDS: PIPER-TAZ 3.375 GM 50 ML IV SCH ×3 (06:00→22:14)
[2017-11-23 06:21] LABS: BASOPHILS # (AUTO) 0.1 (0.0-0.1); BASOPHILS % 0.7 % (0.0-1.0); EOSINOPHILS # (AUTO) 0.2 (0.0-0.4); EOSINOPHILS % 2.2 % (0.0-6.0); HEMATOCRIT 27.6 % (34.2-44.1); LYMPHOCYTES # (AUTO) 1.2 (1.0-3.2); MEAN CORPUSCULAR HEMOGLOBIN 31.2 pg (28-32); MEAN CORPUSCULAR HGB CONC 34.1 g/dL (31-35); MEAN CORPUSCULAR VOLUME 91.7 fL (81-99); MONOCYTES # (AUTO) 1.1 (0.2-0.8); MONOCYTES % 16.2 % (4.4-11.3); NEUTROPHILS # (AUTO) 4.2 (2.1-6.9); NEUTROPHILS % 62.6 % (38.7-80.0); PLATELET COUNT 53 x10e3/uL (140-360); RED BLOOD COUNT 3.01 x10e6/uL (3.6-5.1); RED CELL DISTRIBUTION WIDTH 15.4 % (11.7-14.4)
[2017-11-23 06:34] LABS: HEMOGLOBIN 9.4 g/dL (12.0-16.0)
[2017-11-23 06:44] LABS: ALBUMIN 1.5 g/dL (3.5-5.0); ANION GAP 7.4 mmol/L (8-16); BILIRUBIN,DIRECT 0.7 mg/dL (0.0-0.5); CREATININE, SERUM 1.02 mg/dL (0.57-1.11); POTASSIUM 3.4 mmol/L (3.5-5.1)
[2017-11-23 06:50] LABS: CALCIUM 6.6 mg/dL (8.4-10.2)
[2017-11-23] MEDS ORDERED: POTASSIUM CHLORIDE 20 MEQ TAB CR PO STA (07:25)
[2017-11-23] MEDS ORDERED: MAGNESIUM SULFATE 2GM/50ML 50 ML IV ONE (07:30)
[2017-11-23] MEDS ORDERED: CALCIUM GLUCONATE 10% INJ 13.95 MEQ in SODIUM CHLORIDE 0.9% 100 ML 100 ML IV ONE (07:30)
[2017-11-23] MEDS: INSULIN LISPRO 100 UNIT/1 ML 3ML VIAL SQ SCH ×4 (08:00→23:07)
[2017-11-23] MEDS: ZINC SULFATE 220 MG CAP PO SCH ×2 (09:00→15:54)
[2017-11-23] MEDS: MAGNESIUM OXIDE 400 MG TAB PO SCH ×3 (09:00→22:14)
[2017-11-23] MEDS: FAMOTIDINE 20 MG TAB PO SCH ×2 (09:00→15:54)
[2017-11-23] MEDS: FERROUS SULFATE 325 MG TAB PO SCH ×2 (09:00→15:54)
[2017-11-23] MEDS: MULTIVITAMINS/MINERALS TAB PO SCH (09:00)
[2017-11-23] MEDS: DOCUSATE SODIUM 100 MG CAP PO SCH ×2 (09:00→15:54)
[2017-11-23] MEDS: RIFAXIMIN 550 MG TABLET PO SCH ×2 (09:00→15:54)
[2017-11-23] MEDS: FUROSEMIDE INJ 10 MG/ML 4 ML VIAL IV SCH (09:00)
[2017-11-23] MEDS: ASCORBIC ACID 500 MG TAB PO SCH ×2 (09:00→15:54)
[2017-11-23] MEDS: COLLAGENASE 5 GM TUBE TOP SCH (09:00)
[2017-11-23] MEDS: OYST-CAL-D 500MG TABLET PO SCH ×3 (09:00→22:14)
--- NOTE | 2017-11-23 12:30 | Diagnostic Imaging Report ---
Examination: Limited abdominal ultrasound. Clinical indication: Abdominal distention, evaluate for ascites. Comparison examination: Ultrasound-guided paracentesis images 11/19/2017. Technique: Transverse and longitudinal sonographic images of all 4 quadrants of the abdomen were obtained. Findings: Nodular hepatic contour compatible with cirrhosis partially visualized. Moderate anechoic ascites within the 4 abdominal quadrants. Impression: Moderate ascites. Signed by: Dr. Thee Hong M.D. on 11/23/2017 12:27 PM
--- NOTE | 2017-11-23 14:36 | Diagnostic Imaging Report ---
Date and Time: 11/23/2017 Procedure: Ultrasound-guided paracentesis solder deposit operator: Dr. Hong Pre-operative diagnosis: Ascites Post-operative diagnosis: Ascites Conscious Sedation: None The patient's heart rate and pulse oximetry were continuously monitored by the interventional radiology nurse. Blood pressure was monitored at 5 minute intervals. Additional Medications: Lidocaine 1% for local anesthesia Estimated blood loss: Minimal Blood products administered: None Specimens: 2700 cc fluid Implants: None Condition at completion: Stable Disposition: Returned to floor DISCUSSION: Informed consent was obtained and documented in the medical record after discussion of risks and benefits. Preliminary sonographic evaluation confirmed moderate ascites. A suitable percutaneous approach in the right mid abdomen was identified and the overlying skin was prepped and draped in standard sterile fashion. 1% lidocaine was infiltrated into the skin and subcutaneous tissues for local anesthesia. Then under continuous sonographic guidance, a 5 Latvian Yueh needle catheter was advanced into the peritoneal space. The catheter was advanced off the needle and connected to vacuum bottle with subsequent evacuation of 2700 cc straw-colored fluid. The catheter was removed and a sterile dressing was applied. The patient tolerated the procedure well without immediate complication. FINDINGS: Moderate ascites. IMPRESSION: Successful ultrasound-guided paracentesis with evacuation of 2700 cc straw-colored fluid. Signed by: Dr. Thee Hong M.D. on 11/23/2017 2:32 PM
[2017-11-23] MEDS: TRAMADOL HCL 50 MG TAB PO PRN (15:55)
[2017-11-23] MEDS: VANCOMYCIN HCL 1.5 GM in SODIUM CHLORIDE 0.9% 250ML 300 ML IV SCH (17:00)
[2017-11-24] VITALS: BP 136/66
[2017-11-24 04:00] VITALS: BP 133/68
[2017-11-24 05:38] LABS: BASOPHILS # (AUTO) 0.1 (0.0-0.1); BASOPHILS % 0.8 % (0.0-1.0); EOSINOPHILS # (AUTO) 0.2 (0.0-0.4); EOSINOPHILS % 2.3 % (0.0-6.0); HEMATOCRIT 28.5 % (34.2-44.1); HEMOGLOBIN 9.8 g/dL (12.0-16.0); LYMPHOCYTES # (AUTO) 1.3 (1.0-3.2); LYMPHOCYTES % 18.1 % (18.0-39.1); MEAN CORPUSCULAR HEMOGLOBIN 31.4 pg (28-32); MEAN CORPUSCULAR HGB CONC 34.4 g/dL (31-35); MEAN CORPUSCULAR VOLUME 91.3 fL (81-99); MONOCYTES # (AUTO) 1.2 (0.2-0.8); MONOCYTES % 16.9 % (4.4-11.3); NEUTROPHILS # (AUTO) 4.4 (2.1-6.9); NEUTROPHILS % 61.8 % (38.7-80.0); PLATELET COUNT 71 x10e3/uL (140-360); RED BLOOD COUNT 3.12 x10e6/uL (3.6-5.1); RED CELL DISTRIBUTION WIDTH 15.1 % (11.7-14.4)
[2017-11-24] MEDS ORDERED: XIFAXAN550 MG PO (06:38)
[2017-11-24 06:44] LABS: ALBUMIN 1.5 g/dL (3.5-5.0); BILIRUBIN,DIRECT 0.7 mg/dL (0.0-0.5); CREATININE, SERUM 1.24 mg/dL (0.57-1.11); MAGNESIUM 1.4 MG/DL (1.3-2.1); POTASSIUM 3.5 mmol/L (3.5-5.1)
[2017-11-24] MEDS: FAMOTIDINE 20 MG TAB PO SCH (06:45)
[2017-11-24] MEDS: PIPER-TAZ 3.375 GM 50 ML IV SCH (06:45)
[2017-11-24 08:00] VITALS: BP 145/84
[2017-11-24 08:06] VITALS: BP 145/84
[2017-11-24 08:14] LABS: CALCIUM 7.5 mg/dL (8.4-10.2)
[2017-11-24 08:15] LABS: ANION GAP 16.5 mmol/L (8-16)
[2017-11-24] MEDS: DOCUSATE SODIUM 100 MG CAP PO SCH (08:21)
[2017-11-24] MEDS: RIFAXIMIN 550 MG TABLET PO SCH (08:21)
[2017-11-24] MEDS: ASCORBIC ACID 500 MG TAB PO SCH (08:21)
[2017-11-24] MEDS: FUROSEMIDE INJ 10 MG/ML 4 ML VIAL IV SCH (08:21)
[2017-11-24] MEDS: MAGNESIUM OXIDE 400 MG TAB PO SCH (08:21)
[2017-11-24] MEDS: ZINC SULFATE 220 MG CAP PO SCH (08:21)
[2017-11-24] MEDS: OYST-CAL-D 500MG TABLET PO SCH (08:21)
[2017-11-24] MEDS: FERROUS SULFATE 325 MG TAB PO SCH (08:21)
[2017-11-24] MEDS: COLLAGENASE 5 GM TUBE TOP SCH (08:21)
[2017-11-24] MEDS: MULTIVITAMINS/MINERALS TAB PO SCH (08:21)
[2017-11-24] MEDS: INSULIN LISPRO 100 UNIT/1 ML 3ML VIAL SQ SCH ×2 (08:28→12:41)
--- NOTE | 2017-11-24 10:15 | Progress Note ---
DATE: November 24, 2017 SUBJECTIVE: Patient seen at bedside. Doing better, in good spirits. Denies any issues with fever, chills, nausea or vomiting. OBJECTIVE: Vitals: Afebrile. Pulse rate 93, respirations 19, blood pressure 133/68, O2 saturation 95%. Has a white blood cell count 7.08, hemoglobin 9.8, with a platelet count of 71. The 2nd toe continues to improve, still a very swollen toe when compared to contralateral side, with granulation tissue noted. Negative foul smell. Decreased cellulitis. Skin color is starting to become normalized. ASSESSMENT: Osteomyelitis, 2nd toe, right foot, with a grade-4 ulcer distally and grade-3 ulcer medially, measuring approximately 1 and 1.5 cm in diameter respectively. PLAN: Will continue local wound care with Santyl followed by diluted wet-to-dry Betadine. Continue IV antibiotics. Continue offloading. Okay to be transferred to [facility] for continued care. Job#: [id number]
[2017-11-24 12:00] VITALS: BP 146/89
--- NOTE | 2017-11-24 17:54 | Discharge Summary ---
ADMISSION DIAGNOSES 1. Osteomyelitis of the right second toe with cellulitis. 2. Type 2 diabetes. 3. Urinary tract infection. 4. Hypokalemia. 5. Hypomagnesemia. 6. Hypocalcemia. 7. Hyponatremia. 8. Anemia. 9. Transaminitis. 10. Obesity. 11. Insomnia. DISCHARGE DIAGNOSES 1. Osteomyelitis of the right second toe with cellulitis. 2. Type 2 diabetes. 3. Urinary tract infection. 4. Hypokalemia. 5. Hypomagnesemia. 6. Hypocalcemia. 7. Hyponatremia. 8. Anemia. 9. Transaminitis. 10. Obesity. 11. Insomnia. 12. Ruled out urinary tract infection. HISTORY: The patient has a history of type 2 diabetes, anemia, insomnia. Surgical history of bilateral great toenails removed and right oophorectomy. Family history of diabetes in the patient's mother and aunt. Cancer in the patient's uncle and stroke in the patient's mother. Social history: The patient drinks 6-8 beers a day until last Thursday. She says that she is an alcoholic. She denies tobacco and illicit drug use. HOSPITAL COURSE: A 57-year-old female sent from Dr. Robles's office for right foot second toe wound. The patient says that she has had the wound for about 4 months but was not following up as needed. She said her toenail fell off and when it grew back it became infected. She used peroxide and a cream prescribed by Dr. Robles, but the wound continued to get worse. Dr. Robles cut into the wound on or Thursday before admission and pus came out. Prior to the incision, the patient said there was no drainage, only erythema and swelling. She admits to chills. On admission, the patient was started on vancomycin and Zosyn. Wound culture was completed. UA came back positive for bacteria and blood. The culture came back negative for UTI. The patient had a chest x-ray which was negative. X-ray of the foot that showed OM of the second toe on the right. Ultrasound of the abdomen showed cirrhosis with small volume ascites on the . Then on the the patient had to have a paracentesis where they pulled out 2900 mL of fluid. The patient had a debridement per podiatry on 11/16 and 11/19. She also had a second paracentesis on 11/23 where they pulled out 2700 mL. Blood cultures were negative. Urine culture negative. Wound culture positive for Klebsiella pneumoniae and Strept group B. The patient was anemic. Stool was negative for blood. Anemia was anemia of chronic disease. The patient will transfer to [facility] for long-term antibiotics, wound care and PT. All consults in agreement with transfer. The patient understands transfer instructions and agrees to plan. Vital signs stable. The patient is afebrile. Dictated by: Zoë Woo NP DEEPTI ALBERTO MD Job#: [id number] [facility]
== END 2017-11-24 14:35 | DRG 638 ==
LOC: ER 13:53 → ERHOLD 16:29 → MED/SURG3 21:24
PROVIDERS: ADMIT Internal Medicine; ATTEND Internal Medicine
PROC: 02HV33Z Insertion of Infusion Device into Superior Vena Cava, Percutaneous Approach (ICD-10-PCS; principal; 2017-11-16)
PROC: 0W9G3ZX Drainage of Peritoneal Cavity, Percutaneous Approach, Diagnostic (ICD-10-PCS; 2017-11-19)
PROC: 0HDMXZZ Extraction of Right Foot Skin, External Approach (ICD-10-PCS; 2017-11-19)
PROC: 30243N1 Transfusion of Nonautologous Red Blood Cells into Central Vein, Percutaneous Approach (ICD-10-PCS; 2017-11-20)
PROC: 0W9G3ZX Drainage of Peritoneal Cavity, Percutaneous Approach, Diagnostic (ICD-10-PCS; 2017-11-23)
DX: E11.69 Type 2 diabetes mellitus with other specified complication (principal); L03.115 Cellulitis of right lower limb; M86.671 Other chronic osteomyelitis, right ankle and foot; N39.0 Urinary tract infection, site not specified; E87.1 Hypo-osmolality and hyponatremia; K76.6 Portal hypertension; N17.9 Acute kidney failure, unspecified; B96.1 Klebsiella pneumoniae [K. pneumoniae] as the cause of diseases classified elsewhere; B95.1 Streptococcus, group B, as the cause of diseases classified elsewhere; E87.6 Hypokalemia; E83.42 Hypomagnesemia; E83.51 Hypocalcemia; D63.8 Anemia in other chronic diseases classified elsewhere; E66.9 Obesity, unspecified; Z68.31 Body mass index [BMI] 31.0-31.9, adult; E11.42 Type 2 diabetes mellitus with diabetic polyneuropathy; E11.51 Type 2 diabetes mellitus with diabetic peripheral angiopathy without gangrene; K70.31 Alcoholic cirrhosis of liver with ascites; F10.20 Alcohol dependence, uncomplicated; G47.00 Insomnia, unspecified; Z28.21 Immunization not carried out because of patient refusal; Z79.84 Long term (current) use of oral hypoglycemic drugs
CPT/HCPCS: 36415; 36430; 36569; 49083; 71045; 74470; 76705; 80048; 80053; 80061; 80076; 80202; 81001; 82140; 82270; 82607; 82728; 82746; 82948; 83036; 83540; 83735; 83880; 84100; 84466; 85025; 85610; 85651; 85730; 86850; 86900; 86920; 87040; 87071; 87075; 87086; 87186; 87205; 96361; 96367; 96372; 97139; 99284; J0360; J0610; J1940; J2001; J2270; J2405; J2543; J3370; J3475; J7030; J7050; P9016

== ENCOUNTER → 2017-12-09 | Outpatient (CLI) | payer BC ==
[~2017-12-09] MED LIST changes: +ASCORBIC ACID500 MG PO; +CIPRO500 MG PO; +COLACE100 M1 PO; +Calcium Carbonate PO; +DOXYCYCLINE HY100 MG PO; +FERROUS SULFAT325 MG PO; +FUROSEMIDE40 MG PO; +LACTULOSE20 GM/30 M PO; +LORAZEPAM0.5 MG PO; +MAGNESIUM OXID400 MG PO; +Multivitamins/Minerals PO; +NIFEDIPINE ER30 M1 PO; +POTASSIUM CHLO20 ME1 PO; +TYLENOL # 31 EA PO; +XIFAXAN550 MG PO; +ZINC SULFATE220 M1 PO; +[UNRECOGNIZED DRUG - OTHER] PO
--- NOTE | 2017-12-09 14:03 | Diagnostic Imaging Report ---
Date and Time: 12/09/2017 Procedure: Ultrasound-guided paracentesis Pre-operative diagnosis: Ascites Post-operative diagnosis: Ascites Conscious Sedation: None but the patient's heart rate and pulse oximetry were continuously monitored by the interventional radiology nurse. Blood pressure was monitored at 5 minute intervals. Medications: Lidocaine 1% for local anesthesia Estimated blood loss: Minimal Blood products administered: None Specimens: 3,700 cc fluid Implants: None Condition at completion: Stable DISCUSSION: Informed consent was obtained and documented in the medical record after discussion of risks and benefits. Preliminary sonographic evaluation confirmed moderate ascites. A suitable percutaneous approach in the right mid abdomen was identified and the overlying skin was prepped and draped in standard sterile fashion. 1% lidocaine was infiltrated into the skin and subcutaneous tissues for local anesthesia. A 5 Sri Lankan centesis needle catheter was advanced into the peritoneal space. The catheter was advanced off the needle and connected to vacuum bottle with subsequent evacuation of 3,700 cc straw-colored fluid. The catheter was removed and a sterile dressing was applied. The patient tolerated the procedure well without immediate complication. IMPRESSION: Successful ultrasound-guided paracentesis with evacuation of 2700 cc Gio Del Valle D.O. Dictated by: Gio Del Valle D.O. on 12/09/2017 at 14:12 Electronically approved by: Gio Del Valle D.O. on 12/09/2017 at 14:12
== END ==
LOC: US 12:31
PROVIDERS: ATTEND Internal Medicine
DX: R18.8 Other ascites (principal); K74.60 Unspecified cirrhosis of liver
CPT/HCPCS: 49083

== ENCOUNTER 2017-12-31 15:48 | Inpatient (IN) | payer BC ==
[~2017-12-31] VITALS: Ht 162.6 cm; Wt 83.9 kg
[~2017-12-31 15:48] MED LIST changes: -CIPRO500 MG PO; -DOXYCYCLINE HY100 MG PO; -FUROSEMIDE40 MG PO; -LORAZEPAM0.5 MG PO; -NIFEDIPINE ER30 M1 PO; -POTASSIUM CHLO20 ME1 PO; -[UNRECOGNIZED DRUG - OTHER] PO
--- OUTSIDE RECORDS SUMMARY | 2017-12-31 15:52 | XMS REPORT ---
Author Author [facility] Address Unknown Phone Unavailable Care Team Providers Care Programmer Operator Numerical Control Name Role Phone DEEPTI ALBERTO Unavailable Unavailable Problems This patient has no known problems. Allergies, Adverse Reactions, Alerts This patient has no known allergies or adverse reactions. Medications This patient has no known medications. Results Test Description Test Time Test Comments Text Results Atomic Results Result Comments US GUIDED PARACENTESIS 2017-12-09 14:12:00 [place] [address] Patient Name: DAYANA FRANKLIN MR #: [id number] : 1960 Age/Sex: 57/F Req #: [id number] [facility] Physician: Ordered by: DEEPTI ALBERTO MD Report #: [id number] Location: Room/Bed: Procedure: [id number] US/US GUIDED PARACENTESIS Exam Date: 12/09/17 Exam Time: 1315 REPORT STATUS: Signed Date and Time: 12/09/2017 Procedure: Ultrasound-g uided paracentesis Pre-operative diagnosis: Ascites Post-operative diagnosis: Ascites Conscious Sedation: None but the patient's heart rate and pulse oximetry were continuously monitored by the interventional radiology nurse. Blood pressure was monitored at 5 minute intervals. Medications: Lidocaine 1% for local anesthesia Estimated blood loss: Minimal Blood products administered: None Specimens: 3,700 cc fluid Implants: None Condition at completion: Stable DISCUSSION: Informed consent was obtained and documented in the medical record after discussion of risks and benefits. Preliminary sonographic evaluation confirmed moderate ascites. A suitable percutaneous approach in the right mid abdomen was identified and the overlying skin was prepped and draped in standard sterile fashion. 1% lidocaine was infiltrated into the skin and subcutaneous tissues for local anesthesia. A 5 Dominican centesis needle catheter was advanced into the per itoneal space. The catheter was advanced off the needle and connected to vacuum bottle with subsequent evacuation of 3,700 cc straw-colored fluid. The catheter was removed and a sterile dressing was applied. The patient tolerated the procedure well without immediate complication. IMPRESSION: Successful ultrasound-guided paracentesis with evacuation of 2700 cc Devika Del Valle D.O. Dictated by: Devika Del Valle D.O. on 12/09/2017 at 14:12 Electronically approved by: Devika Del Valle D.O. on 12/09/2017 at 14:12 Dictated By: DEVIKA DEL VALLE DO Naa ctronically Signed By: DEVIKA DEL VALLE DO on 12/09/17 1412 Transcribed By: MARTELL on 12/09/17 1412 COPY TO: DEEPTI ALBERTO MD IR CONSULT 2017-11-23 14:29:00 [place] [address] Patient Name: DAYANA FRANKLIN MR #: [id number] : 1960 Age/Sex: 57/F Req #: [id number] Adm Physician: DEEPTI ALBERTO MD Ordered by: Zoë Rodriguez PIGGYBACK CLERK Report #: [id number] Location: MED/SURG3 Room/Bed: [facility] Procedure: [id number] DX/IR CONSULT Exam Date: Exam Time: REPORT STATUS: Signed Date and Time: 11/23/2017 Procedure: Ultrasound-guided paracentesis berry picker machine operator: Dr. Yin Pre-operative diagnosis: Ascites Post-operative diagnosis: Ascites Conscious Sedation: None The patient's heart rate and pulse oximetry were continuously monitored by the interventional radiology nurse. Blood pressure was monitored at 5 minute intervals. Additional Medications: Lidocaine 1% for local anesthesia Estimated blood loss: Minimal Blood products administered: None Specimens: 2700 cc fluid Implants: None Condition at completion: Stable Disposition: Returned to floor DISCUSSION: Informed consent was obtained and documented in the medical record after discussion of risks and benefits. Preliminary sonographic evaluation confirmed moderate ascites. A suitable percutaneous approach in the right mid abdomen was identified and the overlying skin was prepped and draped in standard sterile fashion. 1% lidocaine was infiltrated into the skin and subcutaneous tissues for local anesthesia. Then under continuous sonographic guidance, a 5 Dominican [place] needle catheter was advanced into the peritoneal space. The catheter was advanced off the needle and connected to vacuum bottle with subsequent evacuation of 2700 cc straw-colored fluid. The catheter was removed and a sterile dressing was applied. The patient tolerated the procedure well without immediate complication. FINDINGS: Moderate ascites. IMPRESSION: Successful ultrasound-guided paracentesis with evacuation of 2700 cc straw-colored fluid. Signed by: Dr. Jocelyn Yin M.D. on 11/23/2017 2:32 PM Dictated By: JOCELYN YIN MD 1432 Transcribed By: AKIRA on 11/23/17 1432 COPY TO: ZOË RODRIGUEZ NP US GUIDED PARACENTESIS 2017-11-23 14:29:00 [place] [address] Patient Name: DAYANA FRANKLIN MR #: [id number] : 1960 Age/Sex: 57/F Req #: [id number] Adm Physician: DEEPTI ALBERTO MD Ordered by: Zoë Rodriguez NP Report #: [id number] Location: MED/SURG3 Room/Bed: [facility] Procedure: [id number] US/US GUIDED PARACENTESIS Exam Date: Exam Time: REPORT STATUS: Signed Date and Time: 11/23/2017 Procedure: Ultrasound- guided paracentesis berry picker machine operator: Dr. Yin Pre-operative diagnosis: Ascites Post-operative diagnosis: Ascites Conscious Sedation: None The patient's heart rate and pulse oximetry were continuously monitored by the interventional radiology nurse. Blood pressure was monitored at 5 minute intervals. Additional Medications: Lidocaine 1% for local anesthesia Estimated blood loss: Minimal Blood products administered: None Specimens: 2700 cc fluid Implants: None Condition at completion: Stable Disposition: Returned to floor DISCUSSION: Informed consent was obtained and documented in the medical record after discussion of risks and benefits. Preliminary sonographic evaluation confirmed moderate ascites. A suitable percutaneous approach in the right mid abdomen was identified and the overlying skin was prepped and draped in standard sterile fashion. 1% lidocaine was infiltrated into the skin and subcutaneous tissues for local anesthesia. Then under continuous sonographic guidance, a 5 Dominican Yueh needle catheter was advanced into the peritoneal space. The catheter was advanced off the needle and connected to vacuum bottle with subsequent evacuation of 2700 cc straw-colored fluid. The catheter was removed and a sterile dressing was applied. The patient tolerated the procedure well without immediate complication. FINDINGS: Moderate ascites. IMPRESSION: Successful ultrasound-guided paracentesis with evacuation of 2700 cc straw-colored fluid. Signed by: Dr. Jocelyn Yin M.D. on 11/23/2017 2:32 PM Dictated By: JOCELYN YIN MD 1432 Transcribed By: AKIRA on 11/23/17 1432 COPY TO: ZOË RODRIGUEZ NP US ABDOMEN LIMITED 2017-11-23 12:26:00 [place] [address] Patient Name: DAYANA FRANKLIN MR #: [id number] : 1960 Age/Sex: 57/F Req #: [id number] Adm Physician: DEEPTI ALBERTO MD Ordered by: Zoë Rodriguez PIGGYBACK CLERK Report #: [id number] Location: MED/SURG3 Room/Bed: [facility] Procedure: [id number] US/US ABDOMEN LIMITED Exam Date: 11/23/17 Exam Time: 1136 REPORT STATUS: Signed Examination: Limited abdominal ultrasound. Clinical indication: Abdominal distention, evaluate for ascites. Comparison examination: Ultrasound-guided paracentesis images 11/19/2017. Technique: Transverse and longitudinal sonographic images of all 4 quadrants of the abdomen were obtained. Findings: Nodular hepatic contour compatible with cirrhosis partially visualized. Moderate anechoic ascites within the 4 abdominal quadrants. Impression: Moderate ascites. Signed by: Dr. Jocelyn Yin M.D. on 11/23/2017 12:27 PM Dictated By: JOCELYN YIN MD 122 Transcribed By: AKIRA on 11/23/17 1227 COPY TO: ZOË RODRIGUEZ PIGGYBACK CLERK IR CONSULT 2017-11-19 16:35:00 [place] [address] Patient Name: DAYANA FRANKLIN MR #: [id number] : 1960 Age/Sex: 57/F Req #: [id number] Adm Physician: DEEPTI ALBERTO MD Ordered by: Zoë Rodriguez PIGGYBACK CLERK Report #: [id number] Location: MED/SURG3 Room/Bed: [facility] Procedure: [id number] DX/IR CONSULT Exam Date: Exam Time: REPORT STATUS: Signed Date and Time: Procedure: Ultrasound-guided paracentesis berry picker machine operator: Dr. Yin Pre-operative diagnosis: Cirrhosis, ascites Post-operative diagnosis: Cirrhosis, ascites Conscious Sedation: None Additional Medications: Lidocaine 1% for local anesthesia Fluoroscopy time: 0 Dose-area Product: 0 mGycm2. Frontal Air Kerma: 0 Contrast used: 0 Estimated blood loss: Minimal Specimens: 2900 cc straw-colored fluid Implants: None Blood products administered: None Complications: No immediate Condition at completion: Stable Disposition: Returned to floor DISCUSSION: Informed consent was obtained and documented in the medical record. The patient was placed in the supine position on the sonographic table. The right abdomen was prepped and draped in standard sterile fashion. A suitable percutaneous approach was identified to the peritoneal space. 1% lidocaine was infiltrated into the skin and subcutaneous tissues for local anesthesia. Then under continuous sonographic guidance a 5 Dominican Yueh needle catheter was advanced into the ascitic fluid. The catheter was advanced off the needle and connected to vacuum bottle with subsequent aspiration of 2900 cc straw-colored fluid. The catheter was removed and a sterile dressing was applied. The patient tolerated the procedure well without immediate complication. FINDINGS: Moderate ascites. IMPRESSION: Successful ultrasound-guided paracentesis with evacuation of 2900 cc straw- colored fluid. Signed by: Dr. Jocelyn Yin M.D. on 11/19/2017 4:37 PM Dictated By: JOCELYN YIN MD 458 Transcribed By: AKIRA on 11/19/17 4417 COPY TO: ZOË RODRIGUEZ NP US GUIDED PARACENTESIS 2017-11-19 16:35:00 [place] [address] Patient Name: DAYANA FRANKLIN MR #: [id number] : 1960 Age/Sex: 57/F [facility] #: [id number] [facility] Physician: DEEPTI ALBERTO MD Ordered by: DEEPTI ALBERTO MD Report #: [id number] Location: [facility]/SURG3 Room/Bed: [facility] Procedure: [id number] US/US GUIDED PARACENTESIS Exam Date: Exam Time: REPORT STATUS: Signed Date and Time: Procedure: Ultrasound-guided paracentesis berry picker machine operator: Dr. Yin Pre-operative diagnosis: Cirrhosis, ascites Post-operative diagnosis: Cirrhosis, ascites Conscious Sedation: None Additional Medications: Lidocaine 1% for local anesthesia Fluoroscopy time: 0 Dose-area Product: 0 mGycm2. Frontal Air Kerma: 0 Contrast used: 0 Estimated blood loss: Minimal Specimens: 2900 cc straw- colored fluid Implants: None Blood products administered: None Complications: No immediate Condition at completion: Stable Disposition: Returned to floor DISCUSSION: Informed consent was obtained and documented in the medical record. The patient was placed in the supine position on the sonographic table. The right abdomen was prepped and draped in standard sterile fashion. A suitable percutaneous approach was identified to the peritoneal space. 1% lidocaine was infiltrated into the skin and subcutaneous tissues for local anesthesia. Then under continuous sonographic guidance a 5 Dominican Yueh needle catheter was advanced into the ascitic fluid. The catheter was advanced off the needle and connected to vacuum bottle with subsequent aspiration of 2900 cc straw-colored fluid. The catheter was removed and a sterile dressing was applied. The patient tolerated the procedure well without immediate complication. FINDINGS: Moderate ascites. IMPRESSION: Successful ultrasound-guided paracentesis with evacuation of 2900 cc straw-colored fluid. Signed by: Dr. Jocelyn Yin M.D. on 11/19/2017 4:37 PM Dictated By: JOCELYN YIN MD 9278 Transcribed By: AKIRA on 11/19/171636 COPY TO: DEEPTI ALBERTO MD US ABDOMEN LIMITED 2017-11-19 09:22:00 [place] [address] Patient Name: DAYANA FRANKLIN MR #: [id number] : 1960 Age/Sex: 57/F Req #: [id number] Adm Physician: DEEPTI ALBERTO MD Ordered by: Zoë Rodriguez PIGGYBACK CLERK Report #: [id number] Location: MED/SURG3 Room/Bed: [facility] Procedure: [id number] US/US ABDOMEN LIMITED Exam Date: Exam Time: REPORT STATUS: Signed PROCEDURE: US ABDOMEN LIMITED COMPARISON: 11/16/2017. INDICATIONS: R/O ASCITES TECHNIQUE: Limited grayscale images of the 4 quadrants of the abdomen were obtained. FINDINGS: Moderate anechoic ascites throughout the abdomen. Cirrhotic liver incidentally noted. CONCLUSION: Moderate ascites. Dictated by: Jocelyn Yin M.D. on 11/19/2017 at 9:22 Electronically approved by: Jocelyn Yin M.D. on 11/19/2017 at 9:22 Dictated By: JOCELYN YIN MD 1 Transcribed By: MARTELL on 11/19/17921 COPY TO: ZOË RODRIGUEZ NP FOOT RIGHT COMPLETE 2017-11-18 13:47:00 [place] [address] Patient Name: DAYANA FRANKLIN MR #: [id number] : 1960 Age/Sex: 57/F Req #: [id number] Adm Physician: DEEPTI ALBERTO MD Ordered by: CRISTOPHER SOLO DPM Report #: [id number] Location: MED/SURG3 Room/Bed: 286- Procedure: [id number] DX/FOOT RIGHT COMPLETE Exam Date: 11/18/17 Exam Time: 1300 REPORT STATUS: Signed Exam: Right foot 3 views History: Pain Comparison: November 16, 2017 Findings: No fracture. Amputation of the distal phalanx. Bone demineralization involving the phalanges of the second toe, greater involving the middle phalanx. Impression: Post surgical change. Bone demineralization involving the phalanges of the second toe. MRI may be of benefit for evaluation of extent of osteomyelitis. Signed by: Dr. Flakita Larios M.D. on 11/18/2017 1:50 PM Dictated By: FLAKITA LARIOS MD 1350 Transcribed By: AKIRA on 11/18/17 1350 COPY TO: CRISTOPHER SOLO DPM FOOT RIGHT COMPLETE 2017-11-16 11:21:00 [place] [address] Patient Name: DAYANA FRANKLIN MR #: [id number] : 1960 Age/Sex: 57/F Req #: [id number] Adm Physician: DEEPTI ALBERTO MD Ordered by: CRISTOPHER SOLO DPM Report #: [id number] Location: MED/SURG3 Room/Bed: [facility]- Procedure: [id number] DX/FOOT RIGHT COMPLETE Exam Date: 11/16/17 Exam Time: 1040 REPORT STATUS: Signed Exam: Right foot 3 views History: Status post debridement Comparison: 11/13/2017 Findings: Interval debridement and amputation of the distal phalanx of the second digit. Expected subcutaneous gas and soft tissue swelling. No acute fracture. Impression: Postsurgical changes of the second digit as above. Signed by: Dr. Jocelyn Yin M.D. on 11/16/2017 11:23 AM Dictated By: JOCELYN YIN MD 22 Transcribed By: AKIRA on 11/16/171122 COPY TO: CRISTOPHER SOLO DPM US ABDOMEN LIMITED 2017-11-16 11:13:00 [place] [address] Patient Name: DAYANA FRANKLIN MR #: [id number] : 1960 Age/Sex: 57/F Req #: [id number] Adm Physician: DEEPTI ALBERTO MD Ordered by: Zoë Rodriguez NP Report #: [id number] Location: MED/[facility] Room/Bed: [facility] Procedure: [id number] US/US ABDOMEN LIMITED Exam Date: Exam Time: REPORT STATUS: Signed PROCEDURE: US ABDOMEN LIMITED COMPARISON: None. INDICATIONS: TRANSMINITIS TECHNIQUE: Menezes-scale and color doppler transverse and longitudinal images of the right upper quadrant of the abdomen were obtained. FINDINGS: Liver: 16.9 cm in length in the right midclavicular line. Coarsened parenchymal echotexture with nodularity. No focal mass. Main portal vein: 1.1 cm in caliber. Hepatopedal flow. Gallbladder: No shadowing calculus, wall thickening or pericholecystic fluid. Common Bile Duct: 0.6 cm in caliber. Sonographic Solano's sign: Reported as negative. Right kidney: 12.7 cm in length . Normal renal cortical echogenicity. No solid masses or hydronephrosis. Pancreas: Poorly visualized due to overlying bowel gas. Inferior vena cava: Patent Aorta: Non-aneurysmal Ascites: Small volume ascites throughout the abdomen. CONCLUSION: Hepatic cirrhosis with portal hypertension evidenced by small volume ascites. Dictated by: Jocelyn Yin M.D. on 11/16/2017 at 11:13 Electronically approved by: Jocelyn Yin M.D. on 11/16/2017 at 11:13 Dictated By: JOCELYN YIN MD 1113 Transcribed By: MARTELL on 11/16/17 1113 COPY TO: ZOË RODRIGUEZ NP CHEST XRAY LINE PLACEMENT 2017-11-16 10:36:00 [place] [address] Patient Name: DAYANA FRANKLIN MR #: [id number] : 1960 Age/Sex: 57/F Req #: [id number] Adm Physician: DEEPTI ALBERTO MD Ordered by: LAUREN ROWLAND MD Report #: [id number] Location: MED/SURG3 Room/Bed: [facility] Procedure: [id number] DX/CHEST XRAY LINE PLACEMENT Exam Date: 11/16/17 Exam Time: 1021 REPORT STATUS: Signed PROCEDURE: CHEST XRAY LINE PLACEMENT COMPARISON: None. INDICATIONS: PICC LINE PLACEMENT FINDINGS: See conclusion CONCLUSION: Tip of right upper extremity PICC projects over the low superior vena cava. Lung volumes are low with subsegmental atelectasis in the bases. Dictated by: Jocelyn Yin M.D. on 11/16/2017 at 10:36 Electronically approved by: Jocelyn Yin M.D. on 11/16/2017 at 10:36 Dictated By: JOCELYN YIN MD 1036 Transcribed By: MARTELL on 11/16/17 1036 COPY TO: LAUREN ROWLAND MD FOOT RIGHT AP LAT 2017-11-13 15:15:00 [place] [address] Patient Name: DAYANA FRANKLIN MR #: [id number] : 1960 Age/Sex: 57/F Req #: [id number] Adm Physician: Ordered by: LIZZ BISWAS NP Report #: [id number] Location: ER Room/Bed: Procedure: [id number] DX/FOOT RIGHT AP LAT Exam Date: 11/13/17 Exam Time: 1500 REPORT STATUS: Signed Exam: Right foot 2 views History: Pain Comparison: None. Findings: Soft tissue swelling and bony destruction of the distal phalanx of the second toe. Mild hindfoot arthrosis. Plantar calcaneal enthesophyte. Impression: Osteomyelitis of the second toe distal phalanx. MRI may be of benefit for evaluation of extent. Signed by: Dr. Flakita Larios M.D. on 11/13/2017 3:16 PM Dictated By: FLAKITA LARIOS MD 15 Transcribed By: AKIRA on 11/13/171515 COPY TO: LIZZ BISWAS NP CHEST SINGLE (PORTABLE) 2017-11-13 14:54:00 [place] [address] Patient Name: DAYANA FRANKLIN MR #: [id number] : 1960 Age/Sex: 57/F Req #: [id number] Adm Physician: Ordered by: LIZZ BISWAS NP Report #: [id number] Location: ER Room/Bed: Procedure: [id number] DX/CHEST SINGLE (PORTABLE) Exam Date: 11/13/17 Exam Time: 1430 REPORT STATUS: Signed EXAM: CHEST SINGLE (PORTABLE), AP Portable DATE: 11/13/2017 2:18 PM Time stamp on exam: 2:37 PM INDICATION: Foot infection COMPARISON: None FINDINGS: LINES/TUBES: None LUNGS: No consolidations or edema. PLEURA: No effusions or pneumothorax. HEART AND MEDIASTINUM: Mild cardiac prominence. BONES AND SOFT TISSUES: No acute findings. IMPRESSION: No acute thoracic abnormality. Signed by: Dr. Devika Del Valle DO on 11/13/2017 2:56 PM Dictated By: DEVKIA DEL VALLE DO 55 Transcribed By: AKIRA on 11/13/171455 COPY TO: LIZZ BISWAS NP
[2017-12-31 18:09] LABS: BASOPHILS % 0.7 % (0.0-1.0); EOSINOPHILS # (AUTO) 0.1 (0.0-0.4); EOSINOPHILS % 1.7 % (0.0-6.0); HEMATOCRIT 30.6 % (34.2-44.1); LYMPHOCYTES # (AUTO) 1.3 (1.0-3.2); MEAN CORPUSCULAR HEMOGLOBIN 30.2 pg (28-32); MEAN CORPUSCULAR HGB CONC 32.7 g/dL (31-35); MEAN CORPUSCULAR VOLUME 92.4 fL (81-99); MONOCYTES # (AUTO) 0.9 (0.2-0.8); MONOCYTES % 14.5 % (4.4-11.3); NEUTROPHILS # (AUTO) 3.7 (2.1-6.9); NEUTROPHILS % 61.8 % (38.7-80.0); RED BLOOD COUNT 3.31 x10e6/uL (3.6-5.1); RED CELL DISTRIBUTION WIDTH 15.8 % (11.7-14.4)
[2017-12-31 18:14] LABS: CLARITY,URINE SL CLOUDY (CLEAR); COLOR,URINE YELLOW (YELLOW)
[2017-12-31 18:14] LABS: PLATELET COUNT 88 x10e3/uL (140-360)
[2017-12-31 18:15] LABS: BILIRUBIN,URINE NEGATIVE (NEGATIVE); KETONES,URINE NEGATIVE (NEGATIVE); LEUKOCYTE ESTERASE ,URINE NEGATIVE (NEGATIVE); NITRITE,URINE NEGATIVE (NEGATIVE); PROTEIN,URINE DIPSTICK NEGATIVE (NEGATIVE); URINE UROBILINOGEN 0.2 mg/dL (0.2 - 1)
[2017-12-31 18:17] LABS: INR 1.18
[2017-12-31 18:18] LABS: PARTIAL THROMBOPLASTIN TIME 39.6 seconds (23.8-35.5)
[2017-12-31 18:26] LABS: ALBUMIN 1.9 g/dL (3.5-5.0); ALBUMIN/GLOBULIN RATIO 0.3 (0.8-2.0); ANION GAP 13.3 mmol/L (8-16); CALCIUM 7.7 mg/dL (8.4-10.2); CREATININE, SERUM 1.65 mg/dL (0.57-1.11); POTASSIUM 3.3 mmol/L (3.5-5.1)
[2017-12-31 18:30] LABS: BACTERIA,URINE MODERATE /HPF; EPITHELIAL CELLS,URINE FEW /LPF
[2017-12-31 20:27] LABS: AMYLASE 88 U/L (25-125); LIPASE 70 U/L (8-78)
[2017-12-31] MEDS ORDERED: LEVOFLOXACIN 500MG/D5W 100ML IV SCH (21:15)
[2017-12-31] MEDS: LEVOFLOXACIN 500MG/D5W 100ML 100 ML IV SCH (23:53)
[2018-01-01] VITALS (8 sets, daily range): BP systolic 136–173; BP diastolic 70–99
[2018-01-01] MEDS: LEVOFLOXACIN 500MG/D5W 100ML 100 ML IV SCH (03:25)
[2018-01-01] MEDS ORDERED: ALBUMIN 25% 12.5GM 200 ML IV ONE ×2 (09:57→10:30)
--- NOTE | 2018-01-01 10:19 | Diagnostic Imaging Report ---
Date and Time: 01/01/2018 Procedure: Ultrasound-guided paracentesis Pre-operative diagnosis: Cirrhosis with ascites Post-operative diagnosis: Cirrhosis with ascites Conscious Sedation: None but the patient's heart rate and pulse oximetry were continuously monitored by the interventional radiology nurse. Blood pressure was monitored at 5 minute intervals. Medications: Lidocaine 1% for local anesthesia Estimated blood loss: Minimal Blood products administered: None Specimens: 8,400 cc fluid Implants: None Condition at completion: Stable DISCUSSION: Informed consent was obtained and documented in the medical record after discussion of risks and benefits. Preliminary sonographic evaluation confirmed moderate ascites. A suitable percutaneous approach in the left mid abdomen was identified and the overlying skin was prepped and draped in standard sterile fashion. 1% lidocaine was infiltrated into the skin and subcutaneous tissues for local anesthesia. A 5 Mongolian centesis needle catheter was advanced into the peritoneal space. The catheter was advanced off the needle and connected to vacuum bottle with subsequent evacuation of 8,400 cc straw-colored fluid. The catheter was removed and a sterile dressing was applied. The patient tolerated the procedure well without immediate complication. 50 g of albumin was ordered. IMPRESSION: Successful ultrasound-guided paracentesis with evacuation of 8,400 cc Gio Del Valle D.O. Dictated by: Gio Del Valle D.O. on 01/01/2018 at 10:28 Electronically approved by: Gio Del Valle D.O. on 01/01/2018 at 10:28
[2018-01-01] MEDS ORDERED: ALBUMIN 25% 12.5GM 0.25 GM/ML BTL IV ONE (10:30)
[2018-01-01] MEDS ORDERED: DEXTROSE 50% SYRINGE 50 ML IV PRN (11:15)
[2018-01-01] MEDS ORDERED: ACETAMINOPHEN/CODEINE 300MG - 30MG TAB PO PRN (11:15)
[2018-01-01] MEDS: INSULIN LISPRO 100 UNIT/1 ML 3ML VIAL SQ SCH ×3 (11:30→21:37)
[2018-01-01 12:17] LABS: BASOPHILS % 0.5 % (0.0-1.0); EOSINOPHILS # (AUTO) 0.1 (0.0-0.4); EOSINOPHILS % 1.4 % (0.0-6.0); HEMATOCRIT 27.3 % (34.2-44.1); HEMOGLOBIN 9.2 g/dL (12.0-16.0); LYMPHOCYTES # (AUTO) 0.9 (1.0-3.2); LYMPHOCYTES % 14.4 % (18.0-39.1); MEAN CORPUSCULAR HEMOGLOBIN 31.1 pg (28-32); MEAN CORPUSCULAR HGB CONC 33.7 g/dL (31-35); MEAN CORPUSCULAR VOLUME 92.2 fL (81-99); MONOCYTES # (AUTO) 0.9 (0.2-0.8); MONOCYTES % 15.3 % (4.4-11.3); NEUTROPHILS % 68.1 % (38.7-80.0); PLATELET COUNT 81 x10e3/uL (140-360); RED BLOOD COUNT 2.96 x10e6/uL (3.6-5.1); RED CELL DISTRIBUTION WIDTH 15.6 % (11.7-14.4)
[2018-01-01 12:38] LABS: ANION GAP 12.2 mmol/L (8-16); CALCIUM 8.3 mg/dL (8.4-10.2); CREATININE, SERUM 1.49 mg/dL (0.57-1.11); POTASSIUM 3.2 mmol/L (3.5-5.1)
[2018-01-01] MEDS ORDERED: POTASSIUM CHLORIDE 20 MEQ TAB CR PO STA (14:58)
[2018-01-01] MEDS: RIFAXIMIN 550 MG TABLET PO SCH (16:23)
[2018-01-01] MEDS: ASCORBIC ACID 500 MG TAB PO SCH (16:23)
[2018-01-01] MEDS: OYST-CAL-D 500MG TABLET PO SCH (16:23)
[2018-01-01] MEDS: FERROUS SULFATE 325 MG TAB PO SCH (16:23)
[2018-01-01] MEDS ORDERED: MELATONIN 5 MG TABLET PO SCH (21:00)
[2018-01-01] MEDS ORDERED: NIFEDIPINE ER30 M1 PO (22:21)
[2018-01-01] MEDS ORDERED: [UNRECOGNIZED DRUG - OTHER] PO (22:21)
[2018-01-01] MEDS ORDERED: POTASSIUM CHLO20 ME1 PO (22:21)
[2018-01-01] MEDS ORDERED: CIPRO500 MG PO (22:21)
[2018-01-01] MEDS ORDERED: LORAZEPAM0.5 MG PO (22:21)
[2018-01-01] MEDS ORDERED: DOXYCYCLINE HY100 MG PO (22:21)
[2018-01-01] MEDS ORDERED: FUROSEMIDE40 MG PO (22:21)
[2018-01-02 04:01] LABS: BASOPHILS % 0.5 % (0.0-1.0); EOSINOPHILS # (AUTO) 0.2 (0.0-0.4); EOSINOPHILS % 3.2 % (0.0-6.0); HEMATOCRIT 24.9 % (34.2-44.1); HEMOGLOBIN 8.5 g/dL (12.0-16.0); LYMPHOCYTES # (AUTO) 1.5 (1.0-3.2); LYMPHOCYTES % 23.1 % (18.0-39.1); MEAN CORPUSCULAR HEMOGLOBIN 30.9 pg (28-32); MEAN CORPUSCULAR HGB CONC 34.1 g/dL (31-35); MEAN CORPUSCULAR VOLUME 90.5 fL (81-99); MONOCYTES % 15.4 % (4.4-11.3); NEUTROPHILS # (AUTO) 3.8 (2.1-6.9); NEUTROPHILS % 57.6 % (38.7-80.0); PLATELET COUNT 70 x10e3/uL (140-360); RED BLOOD COUNT 2.75 x10e6/uL (3.6-5.1); RED CELL DISTRIBUTION WIDTH 15.6 % (11.7-14.4)
[2018-01-02 04:04] VITALS: BP 145/67
[2018-01-02 04:15] LABS: ANION GAP 11.1 mmol/L (8-16); CALCIUM 7.2 mg/dL (8.4-10.2); CREATININE, SERUM 1.16 mg/dL (0.57-1.11); POTASSIUM 3.1 mmol/L (3.5-5.1)
[2018-01-02 04:29] LABS: MAGNESIUM 1.1 MG/DL (1.3-2.1)
[2018-01-02] MEDS ORDERED: MAGNESIUM SULF 1GRAM/DEXTROSE 100 ML IV ONE (04:45)
[2018-01-02 04:59] LABS: FERRITIN 165.92 ng/mL (4.63-204.00)
[2018-01-02 05:16] LABS: FOLATE 15.9 ng/mL (7.0-15.4)
[2018-01-02] MEDS ORDERED: POTASSIUM CHLORIDE 20MEQ/100ML 200 ML IV ONE (06:00)
[2018-01-02] MEDS ORDERED: SODIUM CHLORIDE 0.9% 250ML 250 ML ONE ×2 (06:13→07:28)
[2018-01-02] MEDS: INSULIN LISPRO 100 UNIT/1 ML 3ML VIAL SQ SCH ×3 (07:30→17:15)
[2018-01-02 08:00] VITALS: BP 144/70
[2018-01-02] MEDS: FERROUS SULFATE 325 MG TAB PO SCH ×2 (08:12→17:20)
[2018-01-02 08:18] VITALS: BP 144/70
[2018-01-02] MEDS ORDERED: LORAZEPAM 0.5 MG TAB PO PRN (09:15)
[2018-01-02] MEDS ORDERED: CEFTRIAXONE SOD 1 GM VIAL IV SCH (09:15)
[2018-01-02] MEDS: OYST-CAL-D 500MG TABLET PO SCH ×2 (09:15→17:20)
[2018-01-02] MEDS: ASCORBIC ACID 500 MG TAB PO SCH ×2 (09:15→17:20)
[2018-01-02] MEDS: RIFAXIMIN 550 MG TABLET PO SCH ×2 (09:15→17:20)
[2018-01-02] MEDS ORDERED: LACTULOSE SYRUP 20 GM/30 ML UDC PO SCH (09:30)
[2018-01-02] MEDS ORDERED: CALCIUM GLUCONATE 10% INJ 9.3 MEQ in SODIUM CHLORIDE 0.9% 100 ML 100 ML IV ONE (09:30)
[2018-01-02] MEDS ORDERED: FUROSEMIDE 40 MG TAB PO SCH (09:30)
[2018-01-02] MEDS ORDERED: NIFEDIPINE CR 30 MG TAB PO SCH (09:30)
[2018-01-02] MEDS ORDERED: POTASSIUM CHLORIDE 20 MEQ TAB CR PO SCH (09:30)
[2018-01-02 11:00] VITALS: BP 172/82
[2018-01-02 11:56] VITALS: BP 174/81
[2018-01-02 15:40] VITALS: BP 138/75
== END 2018-01-02 20:15 | disposition home or self-care (01) | DRG 433 ==
LOC: ER 15:48 → ERHOLD 21:15 → IMCU 23:57 → OBSVTOIN 01-02 08:34 → MED/SURG3 01-02 11:25
PROVIDERS: ADMIT Internal Medicine; ATTEND Internal Medicine
PROC: 0W9G3ZZ Drainage of Peritoneal Cavity, Percutaneous Approach (ICD-10-PCS; principal; 2018-01-01)
DX: K70.31 Alcoholic cirrhosis of liver with ascites (principal); N17.9 Acute kidney failure, unspecified; N39.0 Urinary tract infection, site not specified; E22.2 Syndrome of inappropriate secretion of antidiuretic hormone; N18.9 Chronic kidney disease, unspecified; D63.8 Anemia in other chronic diseases classified elsewhere; E11.9 Type 2 diabetes mellitus without complications; F17.200 Nicotine dependence, unspecified, uncomplicated; E66.9 Obesity, unspecified; Z68.31 Body mass index [BMI] 31.0-31.9, adult; G47.00 Insomnia, unspecified; E83.42 Hypomagnesemia; E87.6 Hypokalemia; E83.51 Hypocalcemia; Z79.84 Long term (current) use of oral hypoglycemic drugs
CPT/HCPCS: 36415; 49083; 74470; 80048; 80053; 81001; 82140; 82150; 82607; 82728; 82746; 82948; 83540; 83690; 83735; 84466; 85025; 85610; 85730; 87086; 96367; 96372; 99284; G0378; J0610; J0696; J1956; J3475; J3480; J7050

== ENCOUNTER → 2018-01-12 | Outpatient (CLI) | payer BC ==
[~2018-01-12] MED LIST changes: +CIPRO500 MG PO; +DOXYCYCLINE HY100 MG PO; +FUROSEMIDE40 MG PO; +LORAZEPAM0.5 MG PO; +NIFEDIPINE ER30 M1 PO; +POTASSIUM CHLO20 ME1 PO; +[UNRECOGNIZED DRUG - OTHER] PO
--- NOTE | 2018-01-14 07:14 | Diagnostic Imaging Report ---
Date and Time: 01/12/2018 Procedure: Ultrasound-guided paracentesis double cut off saw operator: Dr. Hong Pre-operative diagnosis: Ascites Post-operative diagnosis: Ascites Conscious Sedation: None The patient's heart rate and pulse oximetry were continuously monitored by the interventional radiology nurse. Blood pressure was monitored at 5 minute intervals. Additional Medications: Lidocaine 1% for local anesthesia Estimated blood loss: Minimal Blood products administered: None Specimens: 82 50 cc straw-colored fluid Implants: None Condition at completion: Stable Disposition: Discharged home DISCUSSION: Informed consent was obtained and documented in the medical record after discussion of risks and benefits. Preliminary sonographic evaluation confirmed moderate ascites. A suitable percutaneous approach in the left lower quadrant was identified and the overlying skin was prepped and draped in standard sterile fashion. 1% lidocaine was infiltrated into the skin and subcutaneous tissues for local anesthesia. Then under continuous sonographic guidance, a 5 Grenadian Yueh needle catheter was advanced into the peritoneal space. The catheter was advanced off the needle and connected to vacuum bottle with subsequent evacuation of 8250 cc straw-colored fluid. The catheter was removed and a sterile dressing was applied. The patient tolerated the procedure well without immediate complication. FINDINGS: Moderate ascites IMPRESSION: Successful ultrasound-guided paracentesis with evacuation of 8250 cc straw-colored fluid. Signed by: Dr. Thee Hong M.D. on 01/14/2018 7:11 AM
== END ==
LOC: US 14:43
PROVIDERS: ATTEND Internal Medicine Gastroenterology
DX: K74.60 Unspecified cirrhosis of liver (principal)
CPT/HCPCS: 49083

== ENCOUNTER → 2018-01-21 | Outpatient (CLI) | payer BC ==
[~2018-01-21] MED LIST changes: +ALBUMIN 25% 12.5GM 200 ML IV ONE
--- NOTE | 2018-01-21 11:49 | Diagnostic Imaging Report ---
PROCEDURE:US GUIDED PARACENTESIS COMPARISON:Multiple prior paracentesis procedures.. INDICATIONS:ASCITES FINDINGS:Informed consent was obtained and documented in the medical record. The patient was placed in the supine position on the sonographic table. The left abdomen was prepped and draped in standard sterile fashion. 1% lidocaine was infiltrated into the skin and subcutaneous tissues for local anesthesia. Under continuous sonographic guidance a 5 Samoan Yueh needle catheter was advanced into the peritoneal space with subsequent evacuation of 8200 cc straw-colored fluid. The catheter was removed and a sterile dressing was applied. Patient tolerated the procedure well without immediate complication. CONCLUSION: Successful ultrasound-guided paracentesis with evacuation of 8200 cc straw-colored fluid. Dictated by: Thee Hong M.D. on 01/21/2018 at 11:59 Electronically approved by: Thee Hong M.D. on 01/21/2018 at 11:59
== END ==
LOC: US 09:45
PROVIDERS: ATTEND Internal Medicine Gastroenterology
DX: R18.8 Other ascites (principal); K74.60 Unspecified cirrhosis of liver
CPT/HCPCS: 49083

== ENCOUNTER → 2018-01-28 | Outpatient (CLI) | payer BC ==
[2018-01-28 10:52] LABS: INR 1.49; PROTHROMBIN TIME 19.3 seconds (11.9-14.5)
[2018-01-28 10:53] LABS: PARTIAL THROMBOPLASTIN TIME 40.5 seconds (23.8-35.5)
--- NOTE | 2018-01-28 13:13 | Diagnostic Imaging Report ---
Date and Time: 01/28/2018 Procedure: Ultrasound-guided paracentesis twisting machine operator: Dr. Hong Pre-operative diagnosis: Ascites Post-operative diagnosis: Ascites Conscious Sedation: None The patient's heart rate and pulse oximetry were continuously monitored by the interventional radiology nurse. Blood pressure was monitored at 5 minute intervals. Additional Medications: Lidocaine 1% for local anesthesia Estimated blood loss: Minimal Blood products administered: None Specimens: 6500 cc straw-colored fluid Implants: None Condition at completion: Stable Disposition: Discharged home DISCUSSION: Informed consent was obtained and documented in the medical record after discussion of risks and benefits. Preliminary sonographic evaluation confirmed moderate ascites. A suitable percutaneous approach in the left lower quadrant was identified and the overlying skin was prepped and draped in standard sterile fashion. 1% lidocaine was infiltrated into the skin and subcutaneous tissues for local anesthesia. Then under continuous sonographic guidance, a 5 Sri Lankan Yueh needle catheter was advanced into the peritoneal space. The catheter was advanced off the needle and connected to vacuum bottle with subsequent evacuation of 6500 cc straw-colored fluid. The catheter was removed and a sterile dressing was applied. The patient tolerated the procedure well without immediate complication. FINDINGS: Moderate ascites IMPRESSION: Successful ultrasound-guided paracentesis with evacuation of 6500 cc straw-colored fluid. Signed by: Dr. Thee Hong M.D. on 01/28/2018 1:09 PM
== END ==
LOC: US 10:00
PROVIDERS: ATTEND Internal Medicine Gastroenterology
DX: R18.8 Other ascites (principal); K74.60 Unspecified cirrhosis of liver
CPT/HCPCS: 36415; 49083; 85049; 85610; 85730

== ENCOUNTER → 2018-02-04 | Outpatient (CLI) | payer BC ==
--- NOTE | 2018-02-04 15:32 | Diagnostic Imaging Report ---
Date and Time: 02/04/2018 Procedure: Ultrasound-guided paracentesis punch operator: Dr. Hong Pre-operative diagnosis: Ascites Post-operative diagnosis: Ascites Conscious Sedation: None The patient's heart rate and pulse oximetry were continuously monitored by the interventional radiology nurse. Blood pressure was monitored at 5 minute intervals. Additional Medications: Lidocaine 1% for local anesthesia Estimated blood loss: Minimal Blood products administered: None Specimens: 7550 cc straw-colored fluid Implants: None Condition at completion: Stable Disposition: Discharged home DISCUSSION: Informed consent was obtained and documented in the medical record after discussion of risks and benefits. Preliminary sonographic evaluation confirmed moderate ascites. A suitable percutaneous approach in the right upper quadrant was identified and the overlying skin was prepped and draped in standard sterile fashion. 1% lidocaine was infiltrated into the skin and subcutaneous tissues for local anesthesia. Then under continuous sonographic guidance, a 5 Icelandic Yueh needle catheter was advanced into the peritoneal space. The catheter was advanced off the needle and connected to vacuum bottle with subsequent evacuation of 7550 cc straw-colored fluid. The catheter was removed and a sterile dressing was applied. The patient tolerated the procedure well without immediate complication. FINDINGS: Moderate ascites IMPRESSION: Successful ultrasound-guided paracentesis with evacuation of 7550 cc straw-colored fluid. Signed by: Dr. Thee Hong M.D. on 02/04/2018 3:28 PM
== END ==
LOC: US 09:50
PROVIDERS: ATTEND Internal Medicine Gastroenterology
DX: R18.8 Other ascites (principal); K74.60 Unspecified cirrhosis of liver
CPT/HCPCS: 49083

== ENCOUNTER → 2018-02-11 | Outpatient (CLI) | payer BC ==
[~2018-02-11] MED LIST changes: +ALBUMIN 25% 12.5GM 150 ML IV ONE; -ALBUMIN 25% 12.5GM 200 ML IV ONE; +SODIUM CHLORIDE 0.9% 250ML 250 ML ONE
--- NOTE | 2018-02-11 16:07 | Diagnostic Imaging Report ---
Procedure: Ultrasound-guided paracentesis dated 02/11/2018 Pre-operative diagnosis: Ascites Post-operative diagnosis: Ascites Conscious Sedation: None The patient's heart rate and pulse oximetry were continuously monitored by the interventional radiology nurse. Blood pressure was monitored at 5 minute intervals. Additional Medications: Lidocaine 1% for local anesthesia Estimated blood loss: Less than 2 cc Albumin administered: 37.5 g of albumin administered Specimens: 4800 cc straw-colored fluid Implants: None Condition at completion: Stable Disposition: Discharged home DISCUSSION: Informed consent was obtained and documented in the medical record after discussion of risks and benefits. Preliminary sonographic evaluation confirmed moderate ascites. A suitable percutaneous approach in the right upper quadrant was identified and the overlying skin was prepped and draped in standard sterile fashion. 1% lidocaine was infiltrated into the skin and subcutaneous tissues for local anesthesia. Then under continuous sonographic guidance, a 5 Greenlandic Yueh needle catheter was advanced into the peritoneal space. The initial puncture was only revealing for 700 cc. An additional puncture in the right upper quadrant was performed with a total removal of 4800 cc of ascitic fluid. The catheter was removed and a sterile dressing was applied. The patient tolerated the procedure well without immediate complication. IMPRESSION: Successful ultrasound-guided paracentesis with evacuation of 4800 cc of ascitic fluid. Signed by: Dr. Gio Del Valle DO on 02/11/2018 4:04 PM
== END ==
LOC: US 12:48
PROVIDERS: ATTEND Internal Medicine Gastroenterology
DX: R18.8 Other ascites (principal); K74.60 Unspecified cirrhosis of liver
CPT/HCPCS: 49083; J7050

== ENCOUNTER → 2018-02-18 | Outpatient (CLI) | payer BC ==
[~2018-02-18] MED LIST changes: -ALBUMIN 25% 12.5GM 150 ML IV ONE; -SODIUM CHLORIDE 0.9% 250ML 250 ML ONE
--- NOTE | 2018-02-18 12:39 | Diagnostic Imaging Report ---
Procedure: Ultrasound-guided paracentesis Pre-operative diagnosis: Ascites Post-operative diagnosis: Ascites Conscious Sedation: None The patient's heart rate and pulse oximetry were continuously monitored by the interventional radiology nurse. Blood pressure was monitored at 5 minute intervals. Additional Medications: Lidocaine 1% for local anesthesia Estimated blood loss: Less than 2 cc Specimens: 3800 cc straw-colored fluid Implants: None Condition at completion: Stable Disposition: Discharged home DISCUSSION: Informed consent was obtained and documented in the medical record after discussion of risks and benefits. Preliminary sonographic evaluation confirmed moderate ascites. A suitable percutaneous approach in the right mid abdomen was identified and the overlying skin was prepped and draped in standard sterile fashion. 1% lidocaine was infiltrated into the skin and subcutaneous tissues for local anesthesia. Then under continuous sonographic guidance, a 5 Sudanese Yueh needle catheter was advanced into the peritoneal space with removal of 3800 cc of ascitic fluid. Post procedural ultrasound demonstrated substantial decrease in ascites with some ascites in perihepatic location which was not targeted. The catheter was removed and a sterile dressing was applied. The patient tolerated the procedure well without immediate complication. IMPRESSION: Successful ultrasound-guided paracentesis with evacuation of 3800 cc of ascitic fluid. Signed by: Dr. Caitlin Lee MD on 02/18/2018 12:36 PM
== END ==
LOC: US 09:13
PROVIDERS: ATTEND Internal Medicine Gastroenterology
DX: R18.8 Other ascites (principal); K74.60 Unspecified cirrhosis of liver
CPT/HCPCS: 49083; C1729

== ENCOUNTER → 2018-02-25 | Outpatient (CLI) | payer BC ==
[2018-02-25 10:20] LABS: INR 1.13; PROTHROMBIN TIME 15.5 seconds (11.9-14.5)
[2018-02-25 10:21] LABS: PARTIAL THROMBOPLASTIN TIME 39.1 seconds (23.8-35.5)
--- NOTE | 2018-02-25 10:51 | Diagnostic Imaging Report ---
Date and Time: 02/25/2018 Procedure: Ultrasound-guided paracentesis roll plugger machine operator: Dr. Hong Pre-operative diagnosis: Ascites Post-operative diagnosis: Ascites Conscious Sedation: None The patient's heart rate and pulse oximetry were continuously monitored by the interventional radiology nurse. Blood pressure was monitored at 5 minute intervals. Additional Medications: Lidocaine 1% for local anesthesia Estimated blood loss: Minimal Blood products administered: None Specimens: 3100 cc straw-colored fluid Implants: None Condition at completion: Stable Disposition: Discharged home DISCUSSION: Informed consent was obtained and documented in the medical record after discussion of risks and benefits. Preliminary sonographic evaluation confirmed moderate ascites. A suitable percutaneous approach in the right upper quadrant was identified and the overlying skin was prepped and draped in standard sterile fashion. 1% lidocaine was infiltrated into the skin and subcutaneous tissues for local anesthesia. Then under continuous sonographic guidance, a 5 Beninese Yueh needle catheter was advanced into the peritoneal space. The catheter was advanced off the needle and connected to vacuum bottle with subsequent evacuation of 3100 cc straw-colored fluid. The catheter was removed and a sterile dressing was applied. The patient tolerated the procedure well without immediate complication. FINDINGS: Moderate ascites IMPRESSION: Successful ultrasound-guided paracentesis with evacuation of 3100 cc straw-colored fluid. Signed by: Dr. Thee Hong M.D. on 02/25/2018 10:47 AM
== END ==
LOC: US 09:12
PROVIDERS: ATTEND Internal Medicine Gastroenterology
DX: R18.8 Other ascites (principal); K74.60 Unspecified cirrhosis of liver
CPT/HCPCS: 36415; 49083; 85049; 85610; 85730

== ENCOUNTER → 2018-03-04 | Outpatient (CLI) | payer BC ==
--- NOTE | 2018-03-04 11:25 | Diagnostic Imaging Report ---
Procedure: Ultrasound-guided paracentesis Pre-operative diagnosis: Ascites Post-operative diagnosis: Ascites Conscious Sedation: None The patient's heart rate and pulse oximetry were continuously monitored by the interventional radiology nurse. Blood pressure was monitored at 5 minute intervals. Additional Medications: Lidocaine 1% for local anesthesia Estimated blood loss: Less than 2 cc Specimens: 3500 cc straw-colored fluid Implants: None Condition at completion: Stable Disposition: Discharged home DISCUSSION: Informed consent was obtained and documented in the medical record after discussion of risks and benefits. Preliminary sonographic evaluation confirmed moderate ascites. A suitable percutaneous approach in the right mid abdomen was identified and the overlying skin was prepped and draped in standard sterile fashion. 1% lidocaine was infiltrated into the skin and subcutaneous tissues for local anesthesia. Then under continuous sonographic guidance, a 5 Egyptian Yueh needle catheter was advanced into the peritoneal space with removal of 3500 cc of ascitic fluid. Post procedural ultrasound demonstrated substantial decrease in ascites with some ascites in perihepatic location which was not targeted. The catheter was removed and a sterile dressing was applied. The patient tolerated the procedure well without immediate complication. IMPRESSION: Successful ultrasound-guided paracentesis with evacuation of 3500 cc of ascitic fluid. Signed by: Dr. Caitlin Lee MD on 03/04/2018 11:21 AM
== END ==
LOC: US 09:54
PROVIDERS: ATTEND Internal Medicine Gastroenterology
DX: R18.8 Other ascites (principal); K74.60 Unspecified cirrhosis of liver
CPT/HCPCS: 49083

== ENCOUNTER 2018-03-05 16:39 | Inpatient (IN) | payer BC ==
[~2018-03-05] VITALS: Ht 162.6 cm; Wt 71.7 kg
[2018-03-05 18:12] LABS: BASOPHILS % 0.2 % (0.0-1.0); EOSINOPHILS % 0.2 % (0.0-6.0); HEMATOCRIT 34.4 % (34.2-44.1); HEMOGLOBIN 11.7 g/dL (12.0-16.0); LYMPHOCYTES # (AUTO) 0.8 (1.0-3.2); LYMPHOCYTES % 15.2 % (18.0-39.1); MEAN CORPUSCULAR HEMOGLOBIN 30.4 pg (28-32); MEAN CORPUSCULAR VOLUME 89.4 fL (81-99); MONOCYTES # (AUTO) 0.3 (0.2-0.8); NEUTROPHILS # (AUTO) 4.1 (2.1-6.9); NEUTROPHILS % 78.2 % (38.7-80.0); PLATELET COUNT 104 x10e3/uL (140-360); RED BLOOD COUNT 3.85 x10e6/uL (3.6-5.1)
[2018-03-05 18:25] LABS: INR 1.13; PROTHROMBIN TIME 15.5 seconds (11.9-14.5)
[2018-03-05 18:26] LABS: PARTIAL THROMBOPLASTIN TIME 38.4 seconds (23.8-35.5)
[2018-03-05 18:29] LABS: ALBUMIN 2.5 g/dL (3.5-5.0); ALBUMIN/GLOBULIN RATIO 0.5 (0.8-2.0); ANION GAP 15.3 mmol/L (8-16); CALCIUM 8.7 mg/dL (8.4-10.2); CREATININE, SERUM 1.85 mg/dL (0.57-1.11); POTASSIUM 4.3 mmol/L (3.5-5.1)
[2018-03-05 18:37] LABS: CREATINE KINASE MB 7.2 ng/mL (0-5.0)
--- NOTE | 2018-03-05 19:00 | NUR ---
REPORT AND PATIENT CARE ENDORSED TO BLAZE SIFUENTES RN
--- NOTE | 2018-03-05 19:05 | NUR ---
RECEIVED PT REPORT FROM SEVERINO BARBER DAY SHIFT NURSE.
--- NOTE | 2018-03-05 19:21 | Diagnostic Imaging Report ---
EXAMINATION: PA and lateral views of the chest. COMPARISON: None CLINICAL HISTORY: Difficulty breathing, cough DISCUSSION: Lines/tubes: None. Lungs: Complete opacification of the right hemithorax. The right bronchus has apparent cut off. Left lung is grossly clear. Pleura: No pneumothorax. Heart and mediastinum: Cardiac silhouette is obscured. Left pulmonary vasculature is normal. Bones and soft tissues: No acute bony abnormalities. IMPRESSION: 1. Complete opacification of the right hemithorax, which may reflect a large pleural effusion and associated atelectasis of the right lung. Right bronchus has an apparent cut off, which may represent an endobronchial or hilar lesion. Signed by: Dr. Erlin Tarango M.D. on 03/05/2018 7:18 PM
[2018-03-05] MEDS ORDERED: CEFEPIME HCL 2 GM VIAL IV SCH (21:15)
[2018-03-05] MEDS ORDERED: ALBUTEROL SULF 0.083% NEB SOLN 3 ML NEB NEB PRN (21:30)
[2018-03-05] MEDS ORDERED: VANCOMYCIN HCL 1GM/NS 250 ML BAG IV ONE (21:30)
[2018-03-05] MEDS ORDERED: IPRATROPIUM BROMIDE 0.02% 2.5 ML NEB NEB PRN (21:30)
[2018-03-05] MEDS ORDERED: VANCOMYCIN 1GM/NS 250 ML 250 ML IV ONE (21:30)
--- NOTE | 2018-03-05 22:25 | Diagnostic Imaging Report ---
EXAM: CT CHEST WO INDICATION: Large pleural effusion on chest x-ray COMPARISON: None TECHNIQUE: Multidetector CT scanning of the chest was performed. Coronal and sagittal multiplanar reformations were obtained. Dose modulation, iterative reconstruction, and/or weight based adjustment of the mA/kV was utilized to reduce the radiation dose to as low as reasonably achievable. Routine protocol performed. IV Contrast: None CTDIvol has been reviewed. It is below the limits set by the Radiation Protocol Committee (RPC). FINDINGS: LUNGS AND AIRWAYS: The trachea and left mainstem bronchus are patent. The right lung is completely collapsed. No consolidations in the left lung. PLEURA: Large right pleural effusion resulting in complete collapse of the right lung and deviation of the mediastinum to the left. HEART, MEDIASTINUM, VESSELS: The heart is within normal size limits. Trace pericardial effusion. Atherosclerotic changes of the thoracic aorta without aneurysm. No mediastinal mass or lymphadenopathy. UPPER ABDOMEN: Cirrhotic liver, splenic and gastric varices, splenomegaly and ascites. MUSCULOSKELETAL: No acute findings. IMPRESSION: Large right pleural effusion results in complete collapse of the right lung and deviation of the mediastinum to the left. 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 Signed by: Dr. Rosa Dewitt M.D. on 03/05/2018 10:08 PM
[2018-03-05] MEDS: AZITHROMYCIN 500MG/NS 250 ML 250 ML IV SCH (22:30)
[2018-03-06] VITALS (10 sets, daily range): BP systolic 111–134; BP diastolic 62–84
[2018-03-06] MEDS ORDERED: SODIUM CHLORIDE 0.9% 250ML 250 ML ONE (00:36)
--- NOTE | 2018-03-06 00:40 | NUR ---
Received patient from ER per stretcher accompanied by ER staff, report from Celia HAQ. Patient is alert and oriented, no complaints of pain at this time. Oriented with the call light, advised to call for assistance when needed, patient verbalized understanding. Patient NPO p midnight for thoracentesis. Will continue to monitor
[2018-03-06] MEDS: CEFEPIME 2 GM/NS 0.9% 100 ML 100 ML IV SCH ×2 (00:47→12:13)
[2018-03-06] MEDS ORDERED: VANCOMYCIN 1GM/NS 250 ML 250 ML IV ONE (01:00)
--- NOTE | 2018-03-06 01:15 | NUR ---
Clarified with Celia HAQ that blood culture and type and crossmatched ordered 209903/05/18
--- NOTE | 2018-03-06 01:25 | NUR ---
Patient signed the consent for the procedure
[2018-03-06 01:31] LABS: BILIRUBIN,URINE NEGATIVE (NEGATIVE); CLARITY,URINE CLEAR (CLEAR); COLOR,URINE YELLOW (YELLOW); KETONES,URINE NEGATIVE (NEGATIVE); LEUKOCYTE ESTERASE ,URINE NEGATIVE (NEGATIVE); NITRITE,URINE NEGATIVE (NEGATIVE); PROTEIN,URINE DIPSTICK TRACE (NEGATIVE); URINE UROBILINOGEN 0.2 mg/dL (0.2 - 1)
[2018-03-06 01:32] LABS: BACTERIA,URINE FEW /HPF; EPITHELIAL CELLS,URINE FEW /LPF; MUCUS,URINE FEW (RARE); RBC,URINE 21-50 /HPF (0-5)
--- NOTE | 2018-03-06 02:05 | NUR ---
blood culture, type and screen and cardiac marker second set sent to the lab
[2018-03-06 03:33] LABS: CREATINE KINASE MB 5.6 ng/mL (0-5.0)
[2018-03-06 05:32] LABS: BASOPHILS % 0.2 % (0.0-1.0); HEMATOCRIT 31.7 % (34.2-44.1); HEMOGLOBIN 10.8 g/dL (12.0-16.0); LYMPHOCYTES # (AUTO) 0.8 (1.0-3.2); LYMPHOCYTES % 12.3 % (18.0-39.1); MEAN CORPUSCULAR HEMOGLOBIN 30.4 pg (28-32); MEAN CORPUSCULAR HGB CONC 34.1 g/dL (31-35); MEAN CORPUSCULAR VOLUME 89.3 fL (81-99); MONOCYTES # (AUTO) 0.7 (0.2-0.8); MONOCYTES % 10.3 % (4.4-11.3); NEUTROPHILS # (AUTO) 4.9 (2.1-6.9); NEUTROPHILS % 76.9 % (38.7-80.0); PLATELET COUNT 84 x10e3/uL (140-360); RED BLOOD COUNT 3.55 x10e6/uL (3.6-5.1); RED CELL DISTRIBUTION WIDTH 13.7 % (11.7-14.4)
[2018-03-06 05:58] LABS: CREATINE KINASE MB 5.6 ng/mL (0-5.0)
[2018-03-06 06:05] LABS: ALBUMIN 2.2 g/dL (3.5-5.0); ALBUMIN/GLOBULIN RATIO 0.5 (0.8-2.0); CALCIUM 8.2 mg/dL (8.4-10.2); CREATININE, SERUM 1.65 mg/dL (0.57-1.11)
--- NOTE | 2018-03-06 06:26 | Diagnostic Imaging Report ---
EXAM: CHEST SINGLE (PORTABLE), AP 1 view INDICATION: Pneumonia, right pleural effusion COMPARISON: PA and lateral view of the chest March 05, 2018 FINDINGS: LINES/TUBES: None LUNGS: Complete opacification of the right hemithorax. The left lung is clear. PLEURA: Large right pleural effusion. HEART AND MEDIASTINUM: Mild mediastinal shift to the left. BONES AND SOFT TISSUES: No acute findings. IMPRESSION: Stable large right pleural effusion. Signed by: Dr. Rosa Dewitt M.D. on 03/06/2018 6:23 AM
[2018-03-06] MEDS: AZITHROMYCIN 500MG/NS 250 ML 250 ML IV SCH (08:31)
[2018-03-06] MEDS: NIFEDIPINE CR 30 MG TAB PO SCH (08:38)
[2018-03-06] MEDS: METFORMIN HCL 500 MG TAB PO SCH (08:38)
[2018-03-06] MEDS: FUROSEMIDE 40 MG TAB PO SCH (08:38)
[2018-03-06] MEDS: POTASSIUM CHLORIDE 20 MEQ TAB CR PO SCH ×2 (08:38→17:30)
[2018-03-06] MEDS: RIFAXIMIN 550 MG TABLET PO SCH ×2 (08:44→17:30)
[2018-03-06] MEDS ORDERED: HYDRALAZINE HCL 20 MG/ML VIAL IV PRN (09:15)
[2018-03-06] MEDS ORDERED: ONDANSETRON HCL INJ 2MG/ML 2ML 2 MG/ML VIAL IV PRN (09:15)
[2018-03-06] MEDS ORDERED: ACETAMINOPHEN 325 MG TAB PO PRN (09:15)
[2018-03-06] MEDS ORDERED: HYDROCODONE/APAP 5MG-325MG TAB PO PRN (09:30)
[2018-03-06 10:26] LABS: INR 1.3; PROTHROMBIN TIME 17.3 seconds (11.9-14.5)
[2018-03-06 10:27] LABS: PARTIAL THROMBOPLASTIN TIME 41.1 seconds (23.8-35.5)
--- NOTE | 2018-03-06 11:23 | Diagnostic Imaging Report ---
A single frontal view of the chest. HISTORY: Cirrhosis, pleural effusion, postthoracentesis COMPARISON: Chest radiograph March 06, 2018 at 0557 DISCUSSION: Portable technique, limits sensitivity of the exam. Overlying monitoring leads. Tubes/Lines: None Lungs and pleura: Mild interval aeration of a portion of the right midlung. Persistent marked right lung atelectasis. Interval decrease in the extremely large right pleural effusion with residual moderate to large right pleural effusion. No definitive pneumothorax. Heart and mediastinum: The visualized portion of the cardiac silhouette appears mildly enlarged. Bones and soft tissues: Appear unremarkable, given this limited exam. IMPRESSION: Status post thoracentesis with decreased right pleural effusion, mild increased aeration of the right lung, and no definitive pneumothorax. Signed by: Dr. Braulio Cantu D.O., M.M.M. on 03/06/2018 11:19 AM
--- NOTE | 2018-03-06 11:52 | Consultation ---
DATE OF CONSULTATION: GASTROENTEROLOGY CONSULTATION REFERRING PHYSICIAN: Dr. Licona. REASON FOR CONSULTATION: Cirrhosis, volume overload. HISTORY OF PRESENT ILLNESS: Ms. Greene is a 57-year-old woman with past medical history of alcoholic cirrhosis with ascites, requiring multiple paracentesis on a regular basis. She comes in with shortness of breath and is found to have large pleural effusion and possible pneumonia concerning for hepatic hydrothorax. She is scheduled for thoracentesis. She has not drank since October of 2017 when she became aware of her problem. She is not having any overt bleeding or encephalopathy. PAST MEDICAL HISTORY 1. Alcoholic cirrhosis. 2. Ascites. 3. Diabetes. MEDICATION/ALLERGIES: REVIEWED. PLEASE SEE MAR MEDICATION RECONCILIATION FORM. SOCIAL HISTORY: Prior alcohol as mentioned. FAMILY HISTORY: Negative for chronic liver disease. REVIEW OF SYSTEMS: A 12-system review is positive for that mentioned in HPI, also positive for dysphoria, generalized fatigue, shortness of breath. PHYSICAL EXAMINATION GENERAL: She is alert and calm, in no acute distress. HEENT: Pupils equal, round and reactive to light. NECK: Supple. LUNGS: Decreased particularly on the right. CARDIOVASCULAR: S1 and S2. ABDOMEN: Soft. She has mild ascites, nontender. EXTREMITIES: No clubbing, cyanosis. PSYCHIATRIC: Calm, dysphoric. NEUROLOGIC: Alert and oriented. No asterixis. HEME/ONC: No significant bruising or adenopathy. The electronic health record is reviewed for laboratory and radiologic study as well as history. ASSESSMENT 1. Decompensated cirrhosis less than 6 months out from last alcohol intake. 2. Alcoholic cirrhosis with ascites. 3. Hepatic hydrothorax. PLAN: At the current time, I agree with thoracentesis. She will need routine hCG screening. She will need to avoid shellfish and NSAIDs. She will need close followup on discharge. Pending her status. She will potentially need a transplant eval down the road based on outpatient followup. I encouraged her cessation efforts which she seems to be doing well with. She will need a low salt diet. She will need continue diuresis. At the current time, I would not pursue TIPS. Would just recommend serial taps, it is not even 6 months out from last alcohol, although she is getting close now. Thank you very much for asking me to see Ms. Greene. Any questions or concerns, please do not hesitate to contact me. We will follow along with you. Job#: [id number] ESPERANZA
--- NOTE | 2018-03-06 13:36 | NUR ---
PT NOT IN ROOM UNABLE TO DO INITIAL SOCIAL SERVICE/CM ASSESSMENT CM MILL CONTROLLER TO FOLLOW UP.
[2018-03-06 14:18] LABS: CREATINE KINASE MB 4.5 ng/mL (0-5.0)
--- NOTE | 2018-03-06 15:32 | Consultation ---
DATE OF CONSULTATION: PULMONARY/CRITICAL CARE CONSULTATION REFERRING PHYSICIAN: Dr. Orion Licona. CHIEF COMPLAINT: Dyspnea and pleural effusion. HISTORY OF PRESENT ILLNESS: The patient is a 57-year-old woman with a history of cirrhosis. She was a prior drinker. She has required serial paracentesis as an outpatient. She came in complaining of shortness of breath over several days. She denies any cough or phlegm production. She did not note any fevers. On examination in the emergency department, she was found to have a large right pleural effusion. She went to radiology and had a thoracentesis done and note some improvement in dyspnea. PAST MEDICAL HISTORY 1. Cirrhosis secondary to alcoholism. 2. Diabetes. 3. No prior history of asthma. 4. No prior respiratory problems. SOCIAL HISTORY: The patient is not a smoker. She quit drinking. MEDICATION ALLERGIES: THE PATIENT IS NOT ALLERGIC TO ANY MEDICATIONS. FAMILY HISTORY: The family history is noncontributory. REVIEW OF SYSTEMS: The patient has no fever or headache. She is not having any neck pain. She has no sore throat. She has no chest pain. She did have some dyspnea, but this has improved after the thoracentesis. She has some cough after the thoracentesis. She has some abdominal distention. She has some ascites. She does not complain of any vomiting or diarrhea. There is no hematochezia. PHYSICAL EXAMINATION VITAL SIGNS: The patient is afebrile. The blood pressure is 120/64 and the saturation is 94%. HEENT: Shows no facial swelling or erythema. The nasal mucosa is normal. The oropharynx is normal. LYMPHATIC: Shows no submandibular, cervical, or supraclavicular adenopathy. CARDIAC: Reveals a regular rate and rhythm with normal S1 and S2. There are no murmurs or rubs. LUNGS: Auscultation of the lungs shows decreased breath sounds on the right side. ABDOMEN: Soft, nontender. There are some ascites. There is no rebound or guarding. EXTREMITIES: Shows 1+ leg edema. LABORATORY DATA: White blood cell count is 6.3 and hemoglobin is 10.8. The platelet count is 84. BUN to creatinine ratio is 30 to 1.65 and other electrolytes within normal limits. The calcium is 8.2 and the albumin is 2.2. PT 17.3 with an INR of 1.3. RADIOGRAPHIC DATA: CT scan of the chest shows a large right pleural effusion and changes consistent with cirrhosis. IMPRESSION 1. Hepatic hydrothorax. 2. Cirrhosis secondary to alcoholism. 3. Thrombocytopenia. 4. Anemia, unspecified. PLAN 1. Thoracentesis as needed. Patient should avoid a chest tube or pleural catheter because of continuous drainage of the pleural space and hepatic hydrothorax has been associated with the worsening outcome as well as malnutrition. 2. Continue Lasix and rifaximin as recommended by GI. 3. Consider evaluation for a liver transplant. 4. Consider TIPS. Job#: [id number] TYLER
[2018-03-06] MEDS: FAMOTIDINE 20 MG/2 ML VIAL IV SCH (17:30)
[2018-03-07 04:00] VITALS: BP 110/64
[2018-03-07 05:28] LABS: BASOPHILS % 0.3 % (0.0-1.0); EOSINOPHILS % 0.3 % (0.0-6.0); HEMOGLOBIN 9.8 g/dL (12.0-16.0); LYMPHOCYTES # (AUTO) 1.4 (1.0-3.2); LYMPHOCYTES % 15.7 % (18.0-39.1); MEAN CORPUSCULAR HEMOGLOBIN 30.5 pg (28-32); MEAN CORPUSCULAR HGB CONC 33.8 g/dL (31-35); MEAN CORPUSCULAR VOLUME 90.3 fL (81-99); MONOCYTES # (AUTO) 0.9 (0.2-0.8); MONOCYTES % 10.5 % (4.4-11.3); NEUTROPHILS # (AUTO) 6.4 (2.1-6.9); NEUTROPHILS % 72.9 % (38.7-80.0); PLATELET COUNT 84 x10e3/uL (140-360); RED BLOOD COUNT 3.21 x10e6/uL (3.6-5.1)
[2018-03-07 05:49] LABS: ALANINE AMINOTRANSFERASE 24 IU/L (0-55); ALKALINE PHOSPHATASE 141 IU/L (40-150); ANION GAP 11.8 mmol/L (8-16); BILIRUBIN,DIRECT 0.4 mg/dL (0.0-0.5); BLOOD UREA NITROGEN 35 mg/dL (7-26); BUN/CREATININE RATIO 19 (6-25); CALCIUM 7.8 mg/dL (8.4-10.2); CARBON DIOXIDE 23 mmol/L (22-29); CHLORIDE 105 mmol/L (98-107); CREATINE KINASE 193 IU/L (29-168); CREATININE, SERUM 1.82 mg/dL (0.57-1.11); EST GLOMERULAR FILTRATION RATE 28 ML/MIN (60-); GLUCOSE 137 mg/dL (74-118); MAGNESIUM 1.4 MG/DL (1.3-2.1); POTASSIUM 3.8 mmol/L (3.5-5.1); SODIUM 136 mmol/L (136-145)
[2018-03-07 05:51] LABS: ALBUMIN 1.9 g/dL (3.5-5.0); ALBUMIN/GLOBULIN RATIO 0.4 (0.8-2.0); ANION GAP 10.8 mmol/L (8-16); CALCIUM 7.9 mg/dL (8.4-10.2); CREATININE, SERUM 1.83 mg/dL (0.57-1.11); POTASSIUM 3.8 mmol/L (3.5-5.1)
--- NOTE | 2018-03-07 06:41 | Diagnostic Imaging Report ---
EXAM: CHEST 2 VIEWS, PA and lateral INDICATION: Right pleural effusion, thoracentesis yesterday COMPARISON: AP view of the chest March 06, 2018 FINDINGS: LINES/TUBES: None LUNGS: Right lower lobe atelectasis and mild reexpansion pulmonary edema. PLEURA: Moderate right pleural effusion, decreased from prior exam. No pneumothorax. HEART AND MEDIASTINUM: Stable appearance BONES AND SOFT TISSUES: No acute findings. IMPRESSION: Moderate right pleural effusion, decreased from prior exam after thoracentesis. No pneumothorax. Residual right lower lobe atelectasis and mild reexpansion pulmonary edema. Signed by: Dr. Rosa Dewitt M.D. on 03/07/2018 6:38 AM
[2018-03-07] MEDS: METFORMIN HCL 500 MG TAB PO SCH (07:00)
[2018-03-07 07:28] VITALS: BP 121/73
[2018-03-07] MEDS ORDERED: LORAZEPAM INJ 2 MG/ML VIAL IV PRN (07:30)
[2018-03-07] MEDS ORDERED: ZOLPIDEM TARTRATE 5 MG TAB PO PRN (07:30)
[2018-03-07] MEDS: FUROSEMIDE 40 MG TAB PO SCH (09:00)
[2018-03-07] MEDS: POTASSIUM CHLORIDE 20 MEQ TAB CR PO SCH ×2 (09:00→16:37)
[2018-03-07] MEDS: NIFEDIPINE CR 30 MG TAB PO SCH (09:00)
[2018-03-07] MEDS: RIFAXIMIN 550 MG TABLET PO SCH ×2 (09:00→16:37)
[2018-03-07] MEDS: FAMOTIDINE 20 MG/2 ML VIAL IV SCH ×2 (09:00→16:37)
[2018-03-07] MEDS: OYST-CAL-D 500MG TABLET PO SCH ×2 (09:00→16:37)
[2018-03-07 11:55] VITALS: BP 126/78
[2018-03-07 15:59] VITALS: BP 137/82
--- NOTE | 2018-03-07 19:19 | NUR ---
report given to on coming nurse
[2018-03-07 20:07] VITALS: BP 125/81
[2018-03-07 23:05] VITALS: BP 125/81
[2018-03-08 04:05] LABS: BASOPHILS % 0.3 % (0.0-1.0); EOSINOPHILS # (AUTO) 0.1 (0.0-0.4); HEMATOCRIT 29.7 % (34.2-44.1); HEMOGLOBIN 10.8 g/dL (12.0-16.0); LYMPHOCYTES # (AUTO) 1.6 (1.0-3.2); LYMPHOCYTES % 16.9 % (18.0-39.1); MEAN CORPUSCULAR HGB CONC 36.4 g/dL (31-35); MEAN CORPUSCULAR VOLUME 87.9 fL (81-99); MONOCYTES # (AUTO) 1.1 (0.2-0.8); MONOCYTES % 11.6 % (4.4-11.3); NEUTROPHILS # (AUTO) 6.5 (2.1-6.9); NEUTROPHILS % 69.8 % (38.7-80.0); PLATELET COUNT 93 x10e3/uL (140-360); RED BLOOD COUNT 3.38 x10e6/uL (3.6-5.1); RED CELL DISTRIBUTION WIDTH 14.3 % (11.7-14.4)
[2018-03-08 04:22] LABS: ANION GAP 10.9 mmol/L (8-16); CALCIUM 8.4 mg/dL (8.4-10.2); CREATININE, SERUM 1.8 mg/dL (0.57-1.11); MAGNESIUM 1.5 MG/DL (1.3-2.1); POTASSIUM 3.9 mmol/L (3.5-5.1)
[2018-03-08 04:40] LABS: B-TYPE NATRIURETIC PEPTIDE2 50.2 pg/mL (0-100)
[2018-03-08 05:39] VITALS: BP 113/71
[2018-03-08] MEDS: METFORMIN HCL 500 MG TAB PO SCH ×2 (07:00→10:50)
[2018-03-08 08:02] VITALS: BP 113/65
[2018-03-08 08:30] VITALS: BP 113/65
[2018-03-08] MEDS: RIFAXIMIN 550 MG TABLET PO SCH ×2 (09:00→17:40)
[2018-03-08] MEDS: NIFEDIPINE CR 30 MG TAB PO SCH (09:00)
[2018-03-08] MEDS: POTASSIUM CHLORIDE 20 MEQ TAB CR PO SCH ×2 (09:00→17:40)
[2018-03-08] MEDS: OYST-CAL-D 500MG TABLET PO SCH ×2 (09:00→17:40)
[2018-03-08] MEDS: FAMOTIDINE 20 MG/2 ML VIAL IV SCH ×2 (09:00→17:00)
[2018-03-08 09:22] LABS: BODY FLUID TYPE PLEURAL
--- NOTE | 2018-03-08 10:36 | Diagnostic Imaging Report ---
Examination: Single AP view of the chest. COMPARISON: 03/07/2018 INDICATION: Post thoracentesis DISCUSSION: See impression IMPRESSION: Interval right thoracentesis with partial evacuation of large right pleural effusion. Moderate effusion persists with patchy right lower lobe airspace disease, likely atelectasis. No pneumothorax. Left lung is clear. Signed by: Dr. Thee Hong M.D. on 03/08/2018 10:32 AM
--- NOTE | 2018-03-08 10:39 | Diagnostic Imaging Report ---
Date and Time: 03/08/2018 Procedure: Ultrasound-guided thoracentesis (right) graphotype operator: Dr. Hong Pre-operative diagnosis: Right pleural effusion Post-operative diagnosis: Right pleural effusion Conscious Sedation: None The patient's heart rate and pulse oximetry were continuously monitored by the interventional radiology nurse. Blood pressure was monitored at 5 minute intervals. Additional Medications: Lidocaine 1% for local anesthesia Contrast used: None Estimated blood loss: Minimal Blood proximal administered: None Specimens: 1900 cc mayra-colored fluid Implants: None Condition at completion: Stable Disposition: Returned to floor DISCUSSION: Informed consent was obtained and documented in the medical record. The patient was placed in the sitting position on the sonographic table. The right posterolateral chest wall was prepped and draped in the standard sterile fashion. A suitable percutaneous intercostal approach to the right pleural space was identified and the overlying skin was infiltrated with 1% lidocaine for local anesthesia. Then under continuous sonographic guidance a 5 [place] Islander Yueh needle catheter was advanced into the pleural space. The catheter was advanced off the needle and connected to vacuum bottle with subsequent evacuation of 1900 cc mayra-colored fluid, at which point the patient complained of dull chest pain with worsening cough. The catheter was removed and a sterile, occlusive dressing was applied. Postprocedure sonographic image showed evacuation of the majority of the pleural effusion. The patient tolerated the procedure well without immediate complication. FINDINGS: Large right pleural effusion. IMPRESSION: Successful ultrasound-guided right thoracentesis with evacuation of 1900 cc mayra-colored fluid. Specimen was submitted for laboratory analysis as requested by the referring clinical team. Signed by: Dr. Thee Hong M.D. on 03/08/2018 10:35 AM
[2018-03-08] MEDS: FUROSEMIDE 40 MG TAB PO SCH (10:50)
[2018-03-08 11:33] LABS: BODY FLUID APPEARANCE SL.CLOUDY; BODY FLUID COLOR YELLOW
[2018-03-08 11:34] LABS: RBC,BODY FLUID 35145 cells/uL; WBC,BODY FLUID 1881 cells/uL
[2018-03-08 11:38] LABS: LYMPHOCYTES,BODY FLUID 25 %; MONO/MACROPHG,BODY FLUID 3 %; NEUTROPHILS,BODY FLUID 11 %; OTHER CELLS,BODY FLUID 61 %
[2018-03-08 12:12] VITALS: BP 132/85
--- NOTE | 2018-03-08 14:53 | NUR ---
Nutrition Screen Note RD Recommendation for Physician: -Continue ADA diet as ordered -RD provided 15minutes education on diet related to cirrhosis on 03/08. Plan of Care: RD following, monitoring for tolerance and adequacy, diet education Nutrition reason for involvement: Diagnosis - cirrhosis Primary Diagnose(s): 1. Hepatic hydrothorax. 2. Cirrhosis secondary to alcoholism. 3. Thrombocytopenia. 4. Anemia, unspecified. PMH: cirrhosis secondary to alcoholism, Diabetes. Ht: 64in Wt: 158lb BMI: 27.1kg/m2 IBW: 120lb RD Assessment: (03/08) Chart reviewed. Labs and meds reviewed. 57 yo F, who is admitted for SOB. Pt was discussed during rounds. Per RN, pt had thoracentesis with 1900cc fluids removed. Currrently on IV lasix and Glucophage. Visited pt in the room. Pt reports good appetite with 75-100% recorded meal intake. No GI complains noted. LBM 03/08, after lactulose was given. Pt denies any chewing or swallowing difficulty. 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 Will continue to monitor and follow. Current Diet: ADA diet Malnutrition Evaluation (03/08/2018) The patient does not meet criteria for a specified degree of malnutrition at this time. Will re-evaluate at follow-up as appropriate. Diet Education Needs Assessment: Diet education indicated, pt is agreeable with plan. Learner(s): pt Barriers: No barriers identified. Cultural/Language Modifications: No cultural/language modifications noted. Readiness: acceptance Method: explanation/ discussion, handout Topics: cirrhosis nutrition therapy Understanding/Compliance: Expect good understanding/compliance from pt. Will benefit from reinforcement. Nutrition Care Level: low Signed: Raysa Maxwell, MS, RD, LD
[2018-03-08 16:08] VITALS: BP 112/80
[2018-03-08 20:00] VITALS: BP 117/75
--- NOTE | 2018-03-08 23:10 | NUR ---
pt refusing tele box#[id number], states " I dont want to wear it", called and notified, no new orders
[2018-03-09] VITALS: BP 119/76
[2018-03-09 05:04] LABS: BASOPHILS % 0.4 % (0.0-1.0); EOSINOPHILS # (AUTO) 0.1 (0.0-0.4); EOSINOPHILS % 1.5 % (0.0-6.0); HEMOGLOBIN 10.2 g/dL (12.0-16.0); LYMPHOCYTES # (AUTO) 1.4 (1.0-3.2); LYMPHOCYTES % 17.4 % (18.0-39.1); MEAN CORPUSCULAR HEMOGLOBIN 30.8 pg (28-32); MEAN CORPUSCULAR VOLUME 90.6 fL (81-99); MONOCYTES # (AUTO) 0.9 (0.2-0.8); MONOCYTES % 11.4 % (4.4-11.3); NEUTROPHILS # (AUTO) 5.4 (2.1-6.9); NEUTROPHILS % 68.9 % (38.7-80.0); PLATELET COUNT 85 x10e3/uL (140-360); RED BLOOD COUNT 3.31 x10e6/uL (3.6-5.1); RED CELL DISTRIBUTION WIDTH 14.1 % (11.7-14.4)
[2018-03-09 05:21] LABS: ANION GAP 10.3 mmol/L (8-16); CALCIUM 7.9 mg/dL (8.4-10.2); CREATININE, SERUM 1.69 mg/dL (0.57-1.11); MAGNESIUM 1.6 MG/DL (1.3-2.1); POTASSIUM 4.3 mmol/L (3.5-5.1)
--- NOTE | 2018-03-09 07:26 | Diagnostic Imaging Report ---
Date and Time: 03/06/2018 Procedure: Ultrasound-guided thoracentesis (right) button decorating machine operator: Caitlin Lee MD Pre-operative diagnosis: Right pleural effusion Post-operative diagnosis: Right pleural effusion Conscious Sedation: None Additional Medications: Lidocaine 1% for local anesthesia Contrast used: None Estimated blood loss: Minimal Blood proximal administered: None Specimens: 1200 cc mayra-colored serous fluid Implants: None Condition at completion: Stable Disposition: Returned to floor DISCUSSION: Informed consent was obtained and documented in the medical record. The patient was placed in the sitting position on the sonographic table. The right posterolateral chest wall was prepped and draped in the standard sterile fashion. A suitable percutaneous intercostal approach to the right pleural space was identified and the overlying skin was infiltrated with 1% lidocaine for local anesthesia. Then under continuous sonographic guidance, a 5 Serbian Yellloheh needle catheter was advanced into the pleural space. The catheter was advanced off the needle and connected to vacuum bottle with subsequent evacuation of 1200 cc of mayra colored serous fluid. The catheter was removed and a sterile, occlusive dressing was applied. Postprocedure sonographic image showed residual moderate to large effusion. The patient tolerated the procedure well without immediate complication. FINDINGS: Large right pleural effusion. IMPRESSION: Successful ultrasound-guided diagnostic and therapeutic right thoracentesis with evacuation of 1200 cc mayra-colored serous fluid. Residual moderate to large right pleural effusion. Signed by: Dr. Caitlin Lee MD on 03/09/2018 7:23 AM
[2018-03-09] MEDS ORDERED: LORAZEPAM0.5 MG PO (07:42)
[2018-03-09] MEDS ORDERED: Calcium Carbonate PO (07:42)
[2018-03-09] MEDS: FAMOTIDINE 20 MG/2 ML VIAL IV SCH (07:48)
[2018-03-09 08:59] VITALS: BP 137/80
[2018-03-09] MEDS: RIFAXIMIN 550 MG TABLET PO SCH (08:59)
[2018-03-09] MEDS: FUROSEMIDE 40 MG TAB PO SCH (08:59)
[2018-03-09] MEDS: METFORMIN HCL 500 MG TAB PO SCH (08:59)
[2018-03-09] MEDS: OYST-CAL-D 500MG TABLET PO SCH (08:59)
[2018-03-09] MEDS: POTASSIUM CHLORIDE 20 MEQ TAB CR PO SCH (08:59)
[2018-03-09] MEDS: NIFEDIPINE CR 30 MG TAB PO SCH (08:59)
[2018-03-09 09:16] VITALS: BP 137/80
--- NOTE | 2018-03-10 04:21 | Discharge Summary ---
ADMISSION DIAGNOSES 1. Large right pleural effusion. 2. Type 2 diabetes. 3. Cirrhosis secondary to alcohol. 4. Hypertension. 5. Urinary tract infection. 6. Acute kidney injury versus chronic kidney disease. 7. 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 DISCHARGE DIAGNOSES 1. Large right pleural effusion. 2. Type 2 diabetes. 3. Cirrhosis secondary to alcohol. 4. Hypertension. 5. Urinary tract infection. 6. Acute kidney injury versus chronic kidney disease. 7. 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 8. Rule out urinary tract infection. 9. Status post thoracentesis x2. 10. Hypocalcemia. HISTORY: Patient has a history of type 2 diabetes, anemia, insomnia, cirrhosis secondary to alcohol use, and hypertension. SURGICAL HISTORY: Right oophorectomy, bilateral great toe nails removed. FAMILY HISTORY: Patient's mother and aunt had diabetes. Patient's uncle had cancer. Patient's mother had a stroke. SOCIAL HISTORY: Patient has a history of alcoholism, but denies current use of alcohol, tobacco, and illicit drug use. HOSPITAL COURSE: A 57-year-old female complains of shortness of breath, orthopnea, and dry cough over the last 2 to 3 weeks. Symptoms are worse with lying flat. It improved with resting in a recliner. Symptoms are also worse at night. Patient denies nausea, vomiting, fever, dysuria, or hematuria. She gets a paracentesis weekly on . On admission, patient had a chest x-ray that showed complete opacification of the right hemithorax. IR was consulted. CT was also done which showed a large right pleural effusion resulting in complete collapse of the right lung and deviation of the mediastinum to the left. Patient had thoracentesis done on March 06, 2018, with 1.2 L pulled and again on March 08, 2018, with 1.9 L pulled. Gastroenterology was consulted who would not recommend tests at this time as patient would need to at least be alcohol free for 6 months. Pulmonology was also consulted. Patient can discharge home and follow up with pulmonology and gastroenterology as discussed. Vital signs stable, patient afebrile. Patient understands discharge instructions and agrees to plan. Dictated by Zoë Woo NP DEEPTI ALBERTO MD Job#: [id number]
== END 2018-03-09 10:43 | disposition home or self-care (01) | DRG 187 ==
LOC: ER 16:39 → ERHOLD 22:08 → MED/SURG2 03-06 00:12
PROVIDERS: ADMIT Internal Medicine; ATTEND Internal Medicine
PROC: 0W993ZX Drainage of Right Pleural Cavity, Percutaneous Approach, Diagnostic (ICD-10-PCS; principal; 2018-03-06)
PROC: 0W993ZX Drainage of Right Pleural Cavity, Percutaneous Approach, Diagnostic (ICD-10-PCS; 2018-03-08)
DX: J94.8 Other specified pleural conditions (principal); N39.0 Urinary tract infection, site not specified; N17.9 Acute kidney failure, unspecified; J98.19 Other pulmonary collapse; D69.6 Thrombocytopenia, unspecified; D64.9 Anemia, unspecified; K70.31 Alcoholic cirrhosis of liver with ascites; F10.21 Alcohol dependence, in remission; Z79.84 Long term (current) use of oral hypoglycemic drugs; G47.00 Insomnia, unspecified; E83.51 Hypocalcemia; I12.9 Hypertensive chronic kidney disease with stage 1 through stage 4 chronic kidney disease, or unspecified chronic kidney disease; E11.22 Type 2 diabetes mellitus with diabetic chronic kidney disease; N18.9 Chronic kidney disease, unspecified; Z82.3 Family history of stroke; Z83.3 Family history of diabetes mellitus; Z82.49 Family history of ischemic heart disease and other diseases of the circulatory system; Z80.9 Family history of malignant neoplasm, unspecified
CPT/HCPCS: 32555; 36415; 71045; 71046; 71250; 74470; 80048; 80053; 80076; 81001; 82550; 82553; 82948; 83036; 83615; 83735; 83880; 84157; 84484; 85025; 85610; 85730; 86850; 86870; 86880; 86900; 86905; 87040; 87070; 87086; 87205; 88112; 88305; 89051; 93005; 99001; 99284; J0456; J2060; J3370; J7050

== ENCOUNTER → 2018-03-11 | Outpatient (CLI) | payer BC ==
--- NOTE | 2018-03-11 11:59 | Diagnostic Imaging Report ---
Date and Time: 03/11/2018 Procedure: Ultrasound-guided paracentesis roller mill operator: Dr. Hong Pre-operative diagnosis: Ascites Post-operative diagnosis: Ascites Conscious Sedation: None The patient's heart rate and pulse oximetry were continuously monitored by the interventional radiology nurse. Blood pressure was monitored at 5 minute intervals. Additional Medications: Lidocaine 1% for local anesthesia Estimated blood loss: Minimal Blood products administered: None Specimens: 3300 cc straw-colored fluid Implants: None Condition at completion: Stable Disposition: Discharged home DISCUSSION: Informed consent was obtained and documented in the medical record after discussion of risks and benefits. Preliminary sonographic evaluation confirmed moderate ascites. A suitable percutaneous approach in the right upper quadrant was identified and the overlying skin was prepped and draped in standard sterile fashion. 1% lidocaine was infiltrated into the skin and subcutaneous tissues for local anesthesia. Then under continuous sonographic guidance, a 5 Bolivian Yueh needle catheter was advanced into the peritoneal space. The catheter was advanced off the needle and connected to vacuum bottle with subsequent evacuation of 3300 cc straw-colored fluid. The catheter was removed and a sterile dressing was applied. The patient tolerated the procedure well without immediate complication. FINDINGS: Moderate ascites IMPRESSION: Successful ultrasound-guided paracentesis with evacuation of 3300 cc straw-colored fluid. Signed by: Dr. Thee Hong M.D. on 03/11/2018 11:56 AM
== END ==
LOC: US 09:47
PROVIDERS: ATTEND Internal Medicine Gastroenterology
DX: R18.8 Other ascites (principal); K74.60 Unspecified cirrhosis of liver
CPT/HCPCS: 49083

== ENCOUNTER → 2018-03-18 | Outpatient (CLI) | payer BC ==
--- NOTE | 2018-03-18 12:38 | Diagnostic Imaging Report ---
Procedure: Ultrasound-guided therapeutic paracentesis Pre-operative diagnosis: Ascites Post-operative diagnosis: Near resolution of ascites post paracentesis Conscious Sedation: None The patient's heart rate and pulse oximetry were continuously monitored by the interventional radiology nurse. Blood pressure was monitored at 5 minute intervals. Additional Medications: Lidocaine 1% for local anesthesia Estimated blood loss: Less than 2 cc Specimens: None Implants: None Condition at completion: Stable Disposition: Discharged home DISCUSSION: Informed consent was obtained and documented in the medical record after discussion of risks and benefits. Preliminary sonographic evaluation confirmed moderate to large volume ascites. A suitable percutaneous approach in the right mid abdomen was identified and the overlying skin was prepped and draped in standard sterile fashion. 1% lidocaine was infiltrated into the skin and subcutaneous tissues for local anesthesia. Then under continuous sonographic guidance, a 5 Maltese Yueh needle catheter was advanced into the peritoneal space with removal of 4700 cc of serous fluid. Post procedural ultrasound demonstrated near resolution of ascites. The catheter was removed and a sterile dressing was applied. The patient tolerated the procedure well without immediate complication. IMPRESSION: Successful ultrasound-guided paracentesis with evacuation of 4700 cc of serous fluid. Signed by: Dr. Caitlin Lee MD on 03/18/2018 12:35 PM
== END ==
LOC: US 09:45
PROVIDERS: ATTEND Internal Medicine Gastroenterology
DX: R18.8 Other ascites (principal); K74.60 Unspecified cirrhosis of liver
CPT/HCPCS: 49083

== ENCOUNTER → 2018-03-25 | Outpatient (CLI) | payer BC ==
--- NOTE | 2018-03-25 12:39 | Diagnostic Imaging Report ---
Date and Time: 03/25/2018 Procedure: Ultrasound-guided paracentesis center line cutter operator: Dr. Hong Pre-operative diagnosis: Ascites Post-operative diagnosis: Ascites Conscious Sedation: None The patient's heart rate and pulse oximetry were continuously monitored by the interventional radiology nurse. Blood pressure was monitored at 5 minute intervals. Additional Medications: Lidocaine 1% for local anesthesia Estimated blood loss: Minimal Blood products administered: None Specimens: 5400 cc straw-colored fluid Implants: None Condition at completion: Stable Disposition: Discharged home DISCUSSION: Informed consent was obtained and documented in the medical record after discussion of risks and benefits. Preliminary sonographic evaluation confirmed moderate ascites. A suitable percutaneous approach in the right upper quadrant was identified and the overlying skin was prepped and draped in standard sterile fashion. 1% lidocaine was infiltrated into the skin and subcutaneous tissues for local anesthesia. Then under continuous sonographic guidance, a 5 [place] Yueh needle catheter was advanced into the peritoneal space. The catheter was advanced off the needle and connected to vacuum bottle with subsequent evacuation of 5400 cc straw-colored fluid. The catheter was removed and a sterile dressing was applied. The patient tolerated the procedure well without immediate complication. FINDINGS: Moderate ascites IMPRESSION: Successful ultrasound-guided paracentesis with evacuation of 5400 cc straw-colored fluid. Signed by: Dr. Thee Hong M.D. on 03/25/2018 12:35 PM
== END ==
LOC: US 10:01
PROVIDERS: ATTEND Internal Medicine Gastroenterology
DX: R18.8 Other ascites (principal); K74.60 Unspecified cirrhosis of liver
CPT/HCPCS: 49083

== ENCOUNTER → 2018-04-01 | Outpatient (CLI) | payer BC ==
--- NOTE | 2018-04-01 12:46 | Diagnostic Imaging Report ---
Date and Time: 04/01/2018 Procedure: Ultrasound-guided paracentesis vacuum forming machine operator: Dr. Hong Pre-operative diagnosis: Ascites Post-operative diagnosis: Ascites Conscious Sedation: None The patient's heart rate and pulse oximetry were continuously monitored by the interventional radiology nurse. Blood pressure was monitored at 5 minute intervals. Additional Medications: Lidocaine 1% for local anesthesia Estimated blood loss: Minimal Blood products administered: None Specimens: 5100 cc straw-colored fluid Implants: None Condition at completion: Stable Disposition: Discharged home DISCUSSION: Informed consent was obtained and documented in the medical record after discussion of risks and benefits. Preliminary sonographic evaluation confirmed moderate ascites. A suitable percutaneous approach in the right upper quadrant was identified and the overlying skin was prepped and draped in standard sterile fashion. 1% lidocaine was infiltrated into the skin and subcutaneous tissues for local anesthesia. Then under continuous sonographic guidance, a 5 Bermudian Yueh needle catheter was advanced into the peritoneal space. The catheter was advanced off the needle and connected to vacuum bottle with subsequent evacuation of 5100 cc slightly cloudy straw-colored fluid. The catheter was removed and a sterile dressing was applied. The patient tolerated the procedure well without immediate complication. FINDINGS: Moderate ascites IMPRESSION: Successful ultrasound-guided paracentesis with evacuation of 5100 cc slightly cloudy straw-colored fluid. Signed by: Dr. Thee Hong M.D. on 04/01/2018 12:43 PM
== END ==
LOC: US 09:55
PROVIDERS: ATTEND Internal Medicine Gastroenterology
DX: R18.8 Other ascites (principal); K74.60 Unspecified cirrhosis of liver
CPT/HCPCS: 49083

== ENCOUNTER 2018-04-15 11:55 | Observation (INO) | payer BC ==
[~2018-04-15] VITALS: Ht 162.6 cm; Wt 68.0 kg
--- NOTE | 2018-04-15 13:06 | Diagnostic Imaging Report ---
EXAMINATION: CHEST 2 VIEWS INDICATION: Shortness of breath. Suspected pleural effusion. COMPARISON: Chest radiograph 03/08/2018. FINDINGS: TUBES and LINES: None. LUNGS AND PLEURA: There is a large right pleural effusion with near complete opacification of the right hemithorax. Minimal residual aeration within the right lung at the apex. The left lung is clear without evidence of pneumonia or pulmonary edema. HEART AND MEDIASTINUM: The cardiomediastinal silhouette is unremarkable. BONES AND SOFT TISSUES: No acute osseous abnormality. UPPER ABDOMEN: No free air under the diaphragm. IMPRESSION: Large right pleural effusion with associated atelectasis resulting in near complete opacification of the right hemithorax. Signed by: Dr. Caitlin Lee MD on 04/15/2018 1:02 PM
--- NOTE | 2018-04-15 14:58 | NUR ---
THORACENTESIS- 2 LITERS FLUID REMOVED Addendum: 04/15/18 at 1501 by AVENTURA 3 LITERS REMOVED
--- NOTE | 2018-04-15 15:28 | Diagnostic Imaging Report ---
EXAMINATION: CHEST XRAY POST PROCEDURE INDICATION: Status post thoracentesis. COMPARISON: Chest radiograph 04/15/18 at 1228PM. FINDINGS: TUBES and LINES: None. LUNGS AND PLEURA: Status post interval thoracentesis with substantial decrease in size of right-sided pleural effusion, now small. There has been interval reaeration of the majority of the right lung. There are persistent patchy opacities in the right lower lung zone. There is either a skinfold or small right basilar hydropneumothorax HEART AND MEDIASTINUM: The cardiomediastinal silhouette is unremarkable. BONES AND SOFT TISSUES: No acute osseous abnormality. UPPER ABDOMEN: No free air under the diaphragm. IMPRESSION: Interval thoracentesis with substantial decrease in size of right-sided pleural effusion, now small. Interval reaeration of the majority of the right lung. Either a skinfold or a small right basilar hydropneumothorax. Recommend follow-up chest radiograph. Patchy opacities at the right lung base likely reflect combination of atelectasis and effusion. No specific evidence of pulmonary edema. Signed by: Dr. Caitlin Lee MD on 04/15/2018 3:25 PM
--- NOTE | 2018-04-15 15:51 | NUR ---
PATIENT COUGHING. SAT 82%, PLACED ON 3L/NC SAT INCREASED TO 90%. DR. GAYLE AT BEDSIDE PT PLACED ON NRB. SAT 96%
--- NOTE | 2018-04-15 16:50 | NUR ---
PATIENT ASSISTED TO BATHROOM. O2 SAT DECREASED TO 70"S. QUICKLY PLACED BACK ON MONITOR AND NRB
--- NOTE | 2018-04-15 18:21 | Diagnostic Imaging Report ---
EXAMINATION: CHEST 2 VIEWS INDICATION: ^F/U ^[id number] ^1720 COMPARISON: Chest radiograph 04/15/2018 1450 p.m. and 04/15/2018 12:31 PM FINDINGS: PA and lateral views TUBES and LINES: None. LUNGS: Lungs are well inflated. Reticulonodular opacity throughout the right lung are mildly increased. The left lung is clear. PLEURA: Trace right pleural effusion in the costophrenic angle is unchanged. No pneumothorax. HEART AND MEDIASTINUM: The cardiomediastinal silhouette is unremarkable. BONES AND SOFT TISSUES: No acute osseous lesion. Soft tissues are unremarkable. UPPER ABDOMEN: No free air under the diaphragm. IMPRESSION: Status post recent thoracentesis with a stable right trace pleural effusion in the right costophrenic angle when compared to the most recent exam. Reticular opacities throughout the right lung are mildly increased and may reflect asymmetric edema, layering basilar pleural effusion, cannot exclude superimposed infection. Continue to follow-up. No free air under the hemidiaphragms. Signed by: Dr. Krystyna Hollingsworth M.D. on 04/15/2018 6:18 PM
--- NOTE | 2018-04-15 18:36 | NUR ---
PATIENT STATES, "I FEEL BETTER". REMOVED NRB. PATIENT MAINTAINING 100 RA
--- NOTE | 2018-04-15 19:30 | NUR ---
REPORT TO SHAILA POOLE R.N. PATIENT FAILED AMBULATION. O2 SAT DECREASED TO 80'S, PATIENT SHORT OF BREATH. PLACED BACK ON MONITOR. DR. GAYLE AWARE. SHE WILL RE-EVALUATE PATIENT FOR ADMISSION AND PLACE ADMIT ORDERS
--- NOTE | 2018-04-15 19:34 | NUR ---
PATIENT 94% SAT ON RA WHEN PLACED BACK IN BED
--- NOTE | 2018-04-15 19:53 | NUR ---
pt awake alert skin w/d resp nonlab, nad noted. vss
[2018-04-15 21:00] VITALS: BP 132/78
[2018-04-15 21:35] LABS: BASOPHILS % 0.2 % (0.0-1.0); EOSINOPHILS # (AUTO) 0.1 (0.0-0.4); EOSINOPHILS % 0.9 % (0.0-6.0); HEMATOCRIT 36.7 % (34.2-44.1); HEMOGLOBIN 12.3 g/dL (12.0-16.0); LYMPHOCYTES # (AUTO) 0.8 (1.0-3.2); LYMPHOCYTES % 5.7 % (18.0-39.1); MEAN CORPUSCULAR HEMOGLOBIN 30.2 pg (28-32); MEAN CORPUSCULAR HGB CONC 33.5 g/dL (31-35); MEAN CORPUSCULAR VOLUME 90.2 fL (81-99); MONOCYTES % 6.8 % (4.4-11.3); NEUTROPHILS # (AUTO) 12.5 (2.1-6.9); PLATELET COUNT 69 x10e3/uL (140-360); RED BLOOD COUNT 4.07 x10e6/uL (3.6-5.1)
[2018-04-15 21:54] LABS: ALBUMIN 1.8 g/dL (3.5-5.0); ALBUMIN/GLOBULIN RATIO 0.5 (0.8-2.0); ANION GAP 12.4 mmol/L (8-16); CALCIUM 8.4 mg/dL (8.4-10.2); CREATININE, SERUM 1.95 mg/dL (0.57-1.11); POTASSIUM 4.4 mmol/L (3.5-5.1)
[2018-04-16] VITALS (7 sets, daily range): BP systolic 98–128; BP diastolic 57–79
--- NOTE | 2018-04-16 05:33 | NUR ---
04/15/18@ 2200: patient rounded and stable 03.1. @0200: patient rounded and stable 0400: patient rounded and stable 0600: patient rounded and stable.
--- NOTE | 2018-04-16 07:25 | NUR ---
patient endorsed to next shift for continuity of care.
--- NOTE | 2018-04-16 14:01 | NUR ---
SOCIAL WORK INITIAL ASSESSMENT Outsole Molder to bedside to discuss plan of care with patient/family. CM/SW role and care transitions discussed. Anticipated discharge plan discussed along with duration of care. CM/SW discussed patients right to make decisions in care. CM/SW work hours given. Patient lives: HOUSE WITH FAMILY Admit/Transfer: VIA ED POA/Emergency contact: HARMEET Current/Previous Home Health: NONE PCP/Follow-up Care: [facility] OR [facility] Current/Previous DME: NONE Other Services: NONE Employment Status: RETIRED Areas of Concerns: NONE Referral Needs: NONE Education Needs: NONE IMM/WRIGHT given and signed (if applicable): NA Goal for discharge: RETURN HOME CM/SW left business card at the bedside with contact information. Name and number was also written on the patients whiteboard. Patient verbalized understanding of discussion. CM will follow-up with ongoing discharge and transition of care needs.
--- NOTE | 2018-04-16 15:27 | Diagnostic Imaging Report ---
Examination: Single AP view of the chest. COMPARISON: April 15, 2018 INDICATION: Pleural effusion, shortness of breath DISCUSSION: Lines/tubes: None. Lungs: Atelectasis in the right lower and midlung. Additional pathology obscured. Pleura: Increased right effusion. No pneumothorax. Heart and mediastinum: The heart and the mediastinum are unremarkable. Bones and soft tissues: No acute bony abnormalities. IMPRESSION: Increased right pleural effusion with adjacent atelectasis. Signed by: Dr. Chad Méndez M.D. on 04/16/2018 3:24 PM
--- NOTE | 2018-04-16 16:04 | NUR ---
paged Dr Jason Watson with chest xray result, patient resting in bed, not in any distress
--- NOTE | 2018-04-16 16:12 | NUR ---
New order recvd from Dr Jason Watson for STAT Thoracentesis of rt side, called radiology
--- NOTE | 2018-04-16 17:45 | NUR ---
patient reached back from thoracentesis, incision site pressure dressing is intact, no SOB or pain
--- NOTE | 2018-04-16 17:51 | Diagnostic Imaging Report ---
EXAM: CHEST XRAY POST PROCEDURE 04/16/2018 at 5:29 PM INDICATION: Status post thoracentesis COMPARISON: 04/16/2018 portable chest FINDINGS: Single AP view of the chest. Visualized bones, soft tissues and cardiomediastinal silhouette appear unchanged. IMPRESSION: 1. Lines/tubes: None. 2. Decrease in the size of the right pleural effusion-no pneumothorax. 3. Mild right pulmonary edema related to reexpansion pulmonary edema after the previous large volume thoracentesis Signed by: Dr. Gio Del Valle DO on 04/16/2018 5:47 PM
--- NOTE | 2018-04-16 17:55 | Diagnostic Imaging Report ---
Exam: Ultrasound guided right thoracentesis dated 04/16/2018 at 5:20 PM History: Recurrent right pleural effusion. Comparison: Chest x-ray performed 04/16/2018 Findings: Utilizing full sterile barrier technique right thoracentesis was accomplished with sterile preparation and 1% lidocaine. Ultrasound guidance for placement of a 5 [place] catheter was accomplished. A total of 2,000 cc of fluid was removed and discarded. Patient tolerated the procedure well. Post procedure chest x-ray was ordered. Impression: Successful ultrasound-guided thoracentesis. Signed by: Dr. Gio Dle Valle DO on 04/16/2018 5:52 PM
[2018-04-16 21:12] LABS: INR 1.19; PROTHROMBIN TIME 15.7 seconds (11.9-14.5)
[2018-04-16 21:13] LABS: PARTIAL THROMBOPLASTIN TIME 36.5 seconds (23.8-35.5)
--- NOTE | 2018-04-16 21:57 | NUR ---
Dr. Watson office called, patient states needs something to help her sleep, spoke to Dr. FORRESTER and he ordered ambien 10mg at bed time prn
[2018-04-16] MEDS ORDERED: ZOLPIDEM TARTRATE 10 MG TAB PO PRN (22:00)
[2018-04-16] MEDS: CEFTRIAXONE SOD 1 GM/NS 50 ML 50 ML IV SCH ×2 (22:45)
[2018-04-17] VITALS: BP 133/81
[2018-04-17 04:00] VITALS: BP 117/73
--- NOTE | 2018-04-17 04:12 | NUR ---
Received patient from day nurse, patient is alert and oriented x 3, patient is on room air.post thoracentesis,site clean and dressing intact, introduced self to patient and patient made aware of the plans for the shift. safety and fall precautions maintained as per hospital protocol: bed in lowest position and locked, needed items beside bed and call garcia placed within patient reach, patient instructed to use it to call nurses for any assistance needed, patient verbalized understanding. patient is currently stable will continue to monitor.2000: patient rounded and stable. 2200: patient rounded and stable. 04/17/18: 0200: patient rounded and stable. 0400: patient rounded and stable.
--- NOTE | 2018-04-17 07:20 | NUR ---
patient resting in bed, Alert with no distress,denies any SOB or chest pain, call light in reach
--- NOTE | 2018-04-17 07:34 | NUR ---
patient endorsed to next shift for continuity of care.
--- NOTE | 2018-04-17 07:35 | NUR ---
patient endorsed to next shift for continuity of care.
[2018-04-17 07:57] VITALS: BP 120/70
[2018-04-17 09:42] VITALS: BP 120/70
[2018-04-17 11:42] VITALS: BP 116/67
[2018-04-17] MEDS ORDERED: LORAZEPAM 0.5 MG TAB PO PRN (14:30)
--- NOTE | 2018-04-17 14:38 | NUR ---
Clarified Discharge order with Dr Ceja, he stated,cancel consult with Dr Loo and patient can go home.
[2018-04-17 14:51] LABS: BASOPHILS % 0.6 % (0.0-1.0); EOSINOPHILS # (AUTO) 0.1 (0.0-0.4); EOSINOPHILS % 1.9 % (0.0-6.0); HEMATOCRIT 33.8 % (34.2-44.1); HEMOGLOBIN 11.3 g/dL (12.0-16.0); LYMPHOCYTES # (AUTO) 1.3 (1.0-3.2); MEAN CORPUSCULAR HEMOGLOBIN 30.1 pg (28-32); MEAN CORPUSCULAR HGB CONC 33.4 g/dL (31-35); MEAN CORPUSCULAR VOLUME 90.1 fL (81-99); MONOCYTES # (AUTO) 0.9 (0.2-0.8); MONOCYTES % 12.6 % (4.4-11.3); NEUTROPHILS # (AUTO) 4.5 (2.1-6.9); NEUTROPHILS % 65.8 % (38.7-80.0); PLATELET COUNT 75 x10e3/uL (140-360); RED BLOOD COUNT 3.75 x10e6/uL (3.6-5.1); RED CELL DISTRIBUTION WIDTH 15.1 % (11.7-14.4)
[2018-04-17 15:03] LABS: ALBUMIN 1.6 g/dL (3.5-5.0); ALBUMIN/GLOBULIN RATIO 0.4 (0.8-2.0); ANION GAP 12.1 mmol/L (8-16); CALCIUM 7.9 mg/dL (8.4-10.2); CREATININE, SERUM 2.26 mg/dL (0.57-1.11); POTASSIUM 4.1 mmol/L (3.5-5.1)
[2018-04-17 15:16] VITALS: BP 112/60
--- NOTE | 2018-04-17 15:49 | NUR ---
patient discharged home, AAOx3, Denies any chest pain or SOB, No prescriptions as per Dr Ceja, IV canula removed with tip intact, no ss of infiltration noted, Tele box returned, , at bed side to take her home, transported via wheelchair, patient got all personnel belongings with her
[2018-04-17] MEDS ORDERED: POTASSIUM CHLORIDE 10MEQ EA PO SCH (17:00)
--- NOTE | 2018-04-18 02:46 | Discharge Summary ---
HISTORY: A 57-year-old female with past medical history positive for cirrhosis of liver, secondary to alcohol abuse, diabetes, and hypertension. She is presently seen in the ER. Also, she was complaining of shortness of breath. She was found to have right pleural effusion. She underwent today 2000 mL of pleural fluid removal. She is feeling fine. She wants to go home today. She is asymptomatic. No fever. PHYSICAL EXAMINATION: HEART: Showed regular rhythm. No murmur or added sound. LUNGS: Clear bilaterally. ABDOMEN: Soft. FINAL IMPRESSION: 1. Right pleural effusion, status post thoracentesis. 2. Anxiety. 3. Cirrhosis of the liver, secondary to alcohol. 4. Uncontrolled diabetes mellitus, type 2. 5. Hypertension with chronic renal failure. 6. Diabetes with chronic renal insufficiency. 7. Chronic renal failure, stage 3. PLAN OF TREATMENT: The patient going to be discharged home today with instruction to continue the home medications, which include furosemide 40 mg daily, lorazepam 0.5 mg q.8 hours as needed for anxiety, nifedipine 30 mg daily, and potassium 10 mEq daily. She is going to follow up with her primary care physician. MD HARLEY Randolph/MAGDY /[id number]
[2018-04-18] MEDS ORDERED: FUROSEMIDE 40 MG TAB PO SCH (09:00)
[2018-04-18] MEDS ORDERED: FUROSEMIDE INJ 10 MG/ML 4 ML VIAL IV SCH (09:00)
[2018-04-18] MEDS ORDERED: NIFEDIPINE CR 30 MG TAB PO SCH (09:00)
== END 2018-04-17 15:37 | disposition home or self-care (01) ==
LOC: ER 11:55 → ERHOLD 21:42 → IMCU 22:41
DX: K70.31 Alcoholic cirrhosis of liver with ascites (principal); J90 Pleural effusion, not elsewhere classified; K70.10 Alcoholic hepatitis without ascites; E11.22 Type 2 diabetes mellitus with diabetic chronic kidney disease; I12.9 Hypertensive chronic kidney disease with stage 1 through stage 4 chronic kidney disease, or unspecified chronic kidney disease; N18.3 Chronic kidney disease, stage 3 (moderate); F41.9 Anxiety disorder, unspecified
CPT/HCPCS: 32555; 36415 ×3; 71045 ×3; 71046; 74470; 80053 ×2; 82948 ×3; 85025 ×2; 85610; 85730; 94640; 99284; G0378 ×3; J0696 ×2

== ENCOUNTER → 2018-04-15 | Outpatient (CLI) | payer BC ==
[2018-04-15 10:38] LABS: INR 1.04; PROTHROMBIN TIME 14.5 seconds (11.9-14.5)
--- NOTE | 2018-04-15 11:50 | Diagnostic Imaging Report ---
Procedure: Ultrasound-guided therapeutic paracentesis Pre-operative diagnosis: Ascites Post-operative diagnosis: Near resolution of ascites post paracentesis Conscious Sedation: None The patient's heart rate and pulse oximetry were continuously monitored by the interventional radiology nurse. Blood pressure was monitored at 5 minute intervals. Additional Medications: Lidocaine 1% for local anesthesia Estimated blood loss: None Specimens: None Implants: None Condition at completion: Stable Disposition: Recovery in Radiology DISCUSSION: Informed consent was obtained and documented in the medical record after discussion of risks and benefits. Preliminary sonographic evaluation confirmed large volume ascites. A suitable percutaneous approach in the right mid abdomen was identified and the overlying skin was prepped and draped in standard sterile fashion. 1% lidocaine was infiltrated into the skin and subcutaneous tissues for local anesthesia. Then under continuous sonographic guidance, a 5 Bolivian Yueh needle catheter was advanced into the peritoneal space with removal of 6850 cc of cloudy slightly yellow tinged fluid. Post procedural ultrasound demonstrated near resolution of ascites. The catheter was removed and a sterile dressing was applied. The patient tolerated the procedure well without immediate complication. IMPRESSION: Ultrasound-guided therapeutic paracentesis with removal of 6850 cc of cloudy fluid. Signed by: Dr. Caitlin Lee MD on 04/15/2018 11:47 AM
== END ==
LOC: US 09:58
PROVIDERS: ATTEND Internal Medicine Gastroenterology
DX: R18.8 Other ascites (principal); K74.60 Unspecified cirrhosis of liver
CPT/HCPCS: 36415; 49083; 85049; 85610; 85730

== ENCOUNTER → 2018-04-22 | Outpatient (CLI) | payer BC ==
--- NOTE | 2018-04-22 11:40 | Diagnostic Imaging Report ---
EXAM: Ultrasound-guided paracentesis DATE: 04/22/2018 9:59 AM INDICATION: Ascites COMPARISON: None PROCEDURES PERFORMED: Ultrasound guided paracentesis Ultrasound images archived in PACS. Anesthesia: Local, 1% lidocaine Devices: 5-Kenyan Centeze sheathed needle PROCEDURE REPORT: After informed consent was obtained, ultrasound was utilized to identify the largest pocket of ascitic fluid. A safe entry route was identified and the overlying skin was prepped and draped in usual sterile fashion. Lidocaine1% was used for local anesthesia. Under ultrasound guidance, the centesis needle was advanced into the ascites in the right lateral mid abdomen. A total of 4,400 were aspirated without complication. Specimen was sent to the laboratory for evaluation. The catheter was removed and a dressing applied to the skin. Complications: None Blood loss: Minimal, less than 1cc Patient disposition: Stable IMPRESSION: Uncomplicated ultrasound guided paracentesis with removal of 4,400 of cloudy fluid. Signed by: Dr. Gio Del Valle DO on 04/22/2018 11:36 AM
[2018-04-22 14:19] LABS: BODY FLUID APPEARANCE CLOUDY; BODY FLUID TYPE PERITONEAL
[2018-04-22 16:27] LABS: RBC,BODY FLUID 395 cells/uL; WBC,BODY FLUID 49 cells/uL
[2018-04-22 17:13] LABS: LYMPHOCYTES,BODY FLUID 19 %; MONO/MACROPHG,BODY FLUID 64 %; NEUTROPHILS,BODY FLUID 6 %; OTHER CELLS,BODY FLUID 11 %
== END ==
LOC: US 09:53
PROVIDERS: ATTEND Internal Medicine Gastroenterology
DX: D69.6 Thrombocytopenia, unspecified (principal)
CPT/HCPCS: 36415; 49083; 82040; 82150; 82945; 83615; 83690; 83986; 84157; 84478; 87070; 87116; 87205; 87206; 88112; 88305; 89051; C1729

== ENCOUNTER → 2018-04-29 | Outpatient (CLI) | payer BC ==
--- NOTE | 2018-04-29 13:39 | Diagnostic Imaging Report ---
Procedure: Ultrasound-guided diagnostic and therapeutic paracentesis Pre-operative diagnosis: Large volume ascites. Post-operative diagnosis: Small volume ascites. Conscious Sedation: None The patient's heart rate and pulse oximetry were continuously monitored by the interventional radiology nurse. Blood pressure was monitored at 5 minute intervals. Additional Medications: Lidocaine 1% for local anesthesia Estimated blood loss: None Specimens: 5350 cc of cloudy fluid. Implants: None Condition at completion: Stable Disposition: Recovery in Radiology DISCUSSION: Informed consent was obtained and documented in the medical record after discussion of risks and benefits. Preliminary sonographic evaluation confirmed large volume ascites. A suitable percutaneous approach in the right mid abdomen was identified and the overlying skin was prepped and draped in standard sterile fashion. 1% lidocaine was infiltrated into the skin and subcutaneous tissues for local anesthesia. Then under continuous sonographic guidance, a 5 Ukrainian Yueh needle catheter was advanced into the peritoneal space with removal of 5350 cc of cloudy fluid. Post procedural ultrasound demonstrated decreased small volume ascites. The catheter was removed and a sterile dressing was applied. The patient tolerated the procedure well without immediate complication. IMPRESSION: Ultrasound-guided diagnostic and therapeutic paracentesis with removal of 5350 cc of cloudy fluid. Signed by: Dr. Caitlin Lee MD on 04/29/2018 1:36 PM
[2018-04-29 14:58] LABS: BODY FLUID APPEARANCE CLOUDY; BODY FLUID COLOR COLORLESS; BODY FLUID TYPE PLEURAL; GLUCOSE,BODY FLUID 184 mg/dL
[2018-04-29 15:00] LABS: RBC,BODY FLUID 381 cells/uL; WBC,BODY FLUID 40 cells/uL
[2018-04-29 15:03] LABS: AMYLASE,BODY FLUID 54
[2018-04-29 15:24] LABS: LYMPHOCYTES,BODY FLUID 48 %; MONO/MACROPHG,BODY FLUID 16 %; NEUTROPHILS,BODY FLUID 5 %; OTHER CELLS,BODY FLUID 31 %
== END ==
LOC: US 11:56
PROVIDERS: ATTEND Internal Medicine Gastroenterology
DX: D69.6 Thrombocytopenia, unspecified (principal)
CPT/HCPCS: 36415; 49083; 82150; 82945; 83615; 83690; 83986; 84155; 84157; 84478; 87070; 87116; 87205; 87206; 89051; C1729; 88112; 88305

== ENCOUNTER 2018-05-05 14:18 | Inpatient (IN) | payer BC ==
[~2018-05-05] VITALS: Ht 162.6 cm; Wt 65.5 kg
[2018-05-05 16:09] LABS: BASOPHILS % 0.5 % (0.0-1.0); EOSINOPHILS % 0.6 % (0.0-6.0); HEMATOCRIT 36.6 % (34.2-44.1); HEMOGLOBIN 12.3 g/dL (12.0-16.0); LYMPHOCYTES # (AUTO) 1.2 (1.0-3.2); LYMPHOCYTES % 18.9 % (18.0-39.1); MEAN CORPUSCULAR HEMOGLOBIN 30.1 pg (28-32); MEAN CORPUSCULAR HGB CONC 33.6 g/dL (31-35); MEAN CORPUSCULAR VOLUME 89.5 fL (81-99); MONOCYTES # (AUTO) 0.7 (0.2-0.8); NEUTROPHILS # (AUTO) 4.5 (2.1-6.9); NEUTROPHILS % 68.7 % (38.7-80.0); PLATELET COUNT 109 x10e3/uL (140-360); RED BLOOD COUNT 4.09 x10e6/uL (3.6-5.1); RED CELL DISTRIBUTION WIDTH 14.8 % (11.7-14.4)
[2018-05-05 16:13] LABS: INR 1.07; PROTHROMBIN TIME 14.4 seconds (11.9-14.5)
[2018-05-05 16:14] LABS: PARTIAL THROMBOPLASTIN TIME 35.5 seconds (23.8-35.5)
[2018-05-05 16:18] LABS: ALBUMIN 1.9 g/dL (3.5-5.0); ALBUMIN/GLOBULIN RATIO 0.4 (0.8-2.0); ANION GAP 12.7 mmol/L (8-16); CALCIUM 8.4 mg/dL (8.4-10.2); CREATININE, SERUM 2.64 mg/dL (0.57-1.11); POTASSIUM 4.7 mmol/L (3.5-5.1)
[2018-05-05 16:40] LABS: CREATINE KINASE MB 8.8 ng/mL (0-5.0)
[2018-05-05 17:01] LABS: PLATELET ESTIMATE SLIGHTLY DECREASED; PLATELET MORPHOLOGY COMMENT FEW LARGE; RBC MORPHOLOGY COMMENT NORMAL
[2018-05-05] MEDS ORDERED: ONDANSETRON HCL INJ 2MG/ML 2ML 2 MG/ML VIAL IV PRN (18:15)
[2018-05-05] MEDS ORDERED: SODIUM CHLORIDE FLUSH 10 ML SYR INJ PRN (18:15)
[2018-05-05] MEDS ORDERED: DEXTROSE 50% SYRINGE 50 ML IV PRN (18:15)
[2018-05-05 20:15] VITALS: BP 109/68
[2018-05-05 20:40] VITALS: BP 109/68
[2018-05-05] MEDS: INSULIN LISPRO 100 UNIT/1 ML 3ML VIAL SQ SCH (21:00)
[2018-05-06] VITALS (7 sets, daily range): BP systolic 92–127; BP diastolic 56–80
--- NOTE | 2018-05-06 02:01 | Consultation ---
DATE OF CONSULTATION: 05/05/2018 Pulmonary Medicine Consult REASON FOR REFERRAL: Pleural effusion. HISTORY OF PRESENT ILLNESS: Ms. Greene is a pleasant 58-year-old female with pleural effusion. The patient is admitted to [facility] on May 05, 2018. The patient had shortness of breath. Onset has been gradual. Moderate intensity, but there is a pattern of worsening. Symptoms worsen by exertion and walking, and improved by rest. The patient came to emergency room due to worsening. The patient had thoracentesis today already that showed 1 L of fluid output. Her x-ray had shown 100% right hemithorax opacity. The patient, however, was noted to have BUN 53 and creatinine 2.6. She has recommended for hospitalization. On April 16, 2018, the patient had a clear chest x-ray in our system. The patient's last thoracentesis was April 16, 2018, when she had 2 L taken out. The patient with last paracentesis on April 29, 2018, where she had 5.3 L removed from her abdomen. The patient was reported to have likely hepatic hydrothorax. MEDICATIONS: She is on medicines at this time. Outpatient regimen included Lasix 40 mg a day and potassium 10 mEq per day. The patient sees Dr. Audi Watson, for GI issues. PAST MEDICAL HISTORY: Cirrhosis, diabetes, CKD. MEDICATIONS: Medication list reviewed per the chart record. ALLERGIES: NO KNOWN DRUG ALLERGIES. SOCIAL HISTORY: The patient smoked cigarettes for only 2-3 years. No illegal drugs. She drank a 12-pack of alcohol a day, from age 11 to 56. She since quit. She is a former industrial engineering analyst. No other job-to-job exposures. FAMILY HISTORY: Noncontributory. REVIEW OF SYSTEMS: GENERAL: No weight changes. OPHTHALMOLOGIC: No double vision. ENT: No mouth ulcers. PULMONARY: No known asthma. CARDIAC: No heart attacks. GASTROINTESTINAL: No constipation. GENITOURINARY: No blood in urine. DERMATOLOGIC: No rash. PSYCHIATRIC: No depression. NEUROLOGIC: No seizures. PHYSICAL EXAMINATION: VITAL SIGNS: Reviewed per the chart record. GENERAL: No acute distress, calm when in bed, lying down. HEENT: Normocephalic and atraumatic. NECK: Supple. Throat midline. LUNGS: Minimal breath sounds on the right side heard, more breath sounds on the left. No patrice wheezes. No patrice rales. CARDIOVASCULAR: S1 and S2. No murmurs, rubs, or gallops. ABDOMEN: Soft and nontender. EXTREMITIES: No clubbing. No cyanosis. There is no edema. INTEGUMENT: No rash or purpura. LABORATORY DATA: Potassium 4.7, BUN 53, and creatinine 2.64. White count 7, hematocrit 36, and platelets 109. Albumin is 1.9. IMPRESSION AND PLAN: 1. Recurrent massive right-sided pleural effusion. 2. Hscks-kx-liyxlyl kidney failure. 3. Hepatic hydrothorax. 4. Former alcohol dependency, quit. 5. Minimal smoker, to be treated as nonsmoker here. 6. Diabetes. 7. Severe protein-calorie malnutrition. Follow up pleural fluid analysis. For the most part, the patient should be considered for alternative/the patient will require more diuresis. If the patient fails diuresis, then consideration would be for a tunneled pleural catheter for chronic intermittent drainage or for other surgical management/interventional management as per GI. I will discuss with them. Renal specialist was consulted given the kidney condition. The patient should have slow control drainage of her pleural effusion given the danger to the kidneys, as her blood pressure remains elevated. Continue alcohol cessation. Thank you very much, Dr. Watson, for this consult. Please call for questions. MD MARLON Narvaez/MODL /[id number]
[2018-05-06 05:35] LABS: BASOPHILS % 0.7 % (0.0-1.0); EOSINOPHILS # (AUTO) 0.1 (0.0-0.4); EOSINOPHILS % 1.7 % (0.0-6.0); HEMOGLOBIN 11.1 g/dL (12.0-16.0); LYMPHOCYTES # (AUTO) 1.4 (1.0-3.2); LYMPHOCYTES % 24.1 % (18.0-39.1); MEAN CORPUSCULAR HEMOGLOBIN 30.2 pg (28-32); MEAN CORPUSCULAR HGB CONC 33.6 g/dL (31-35); MEAN CORPUSCULAR VOLUME 89.9 fL (81-99); MONOCYTES # (AUTO) 0.9 (0.2-0.8); MONOCYTES % 14.7 % (4.4-11.3); NEUTROPHILS # (AUTO) 3.4 (2.1-6.9); NEUTROPHILS % 58.5 % (38.7-80.0); PLATELET COUNT 85 x10e3/uL (140-360); RED BLOOD COUNT 3.67 x10e6/uL (3.6-5.1); RED CELL DISTRIBUTION WIDTH 14.6 % (11.7-14.4)
[2018-05-06 06:11] LABS: CREATININE, SERUM 2.75 mg/dL (0.57-1.11)
--- NOTE | 2018-05-06 07:05 | NUR ---
Received patient semi fowlers position, side rails upx2, call light within reach. Resting with eyes closed. Arousable to verbal stimuli. Respirations even and unlabored. Will continue to monitor.
[2018-05-06] MEDS: INSULIN LISPRO 100 UNIT/1 ML 3ML VIAL SQ SCH ×5 (07:30→21:37)
[2018-05-06] MEDS ORDERED: LACTULOSE20 GM/30 M PO (09:06)
[2018-05-06 09:49] LABS: CLARITY,URINE SL CLOUDY (CLEAR); COLOR,URINE YELLOW (YELLOW); LEUKOCYTE ESTERASE ,URINE TRACE (NEGATIVE); NITRITE,URINE NEGATIVE (NEGATIVE)
[2018-05-06 09:50] LABS: BILIRUBIN,URINE NEGATIVE (NEGATIVE); KETONES,URINE NEGATIVE (NEGATIVE); PROTEIN,URINE DIPSTICK NEGATIVE (NEGATIVE); URINE UROBILINOGEN 0.2 mg/dL (0.2 - 1)
[2018-05-06 10:04] LABS: EPITHELIAL CELLS,URINE FEW /LPF
[2018-05-06 10:34] LABS: SODIUM,URINE < 20 mmol/L; TOTAL PROTEIN, URINE < 6.8 mg/dL (1-14)
[2018-05-06] MEDS ORDERED: LORAZEPAM 0.5 MG TAB PO PRN (10:45)
--- NOTE | 2018-05-06 11:12 | Diagnostic Imaging Report ---
Examination: Single AP view of the chest. COMPARISON: 05/05/2018 INDICATION: Post thoracentesis DISCUSSION: See impression IMPRESSION: Status post repeat right thoracentesis with partial interval evacuation of still large right pleural effusion with commiserate aeration of the right lung. No pneumothorax. Signed by: Dr. Thee Hong M.D. on 05/06/2018 11:09 AM
--- NOTE | 2018-05-06 11:24 | Diagnostic Imaging Report ---
Date and Time: 05/06/2018 Procedure: Ultrasound-guided right thoracentesis operator electronic warfare: Dr. Hong Pre-operative diagnosis: Right pleural effusion Post-operative diagnosis: Right pleural effusion Conscious Sedation: None The patient's heart rate and pulse oximetry were continuously monitored by the interventional radiology nurse. Blood pressure was monitored at 5 minute intervals. Additional Medications: Lidocaine 1% for local anesthesia Estimated blood loss: Minimal Blood products administered: None Specimens: 1800 cc cloudy yellow fluid Implants: None Condition at completion: Stable Disposition: Returned to floor Complications: No immediate DISCUSSION: Informed consent was obtained and documented in the medical record. The patient was placed in the sitting position on the sonographic table. The right posterolateral chest wall was prepped and draped in the standard sterile fashion. A suitable percutaneous intercostal approach to the right pleural space was identified and the overlying skin was infiltrated with 1% lidocaine for local anesthesia. Then under continuous sonographic guidance a 5 Welsh Yueh needle catheter was advanced into the pleural space. The catheter was advanced off the needle and connected to vacuum bottle with subsequent evacuation of 1800 cc cloudy yellow fluid, at which point the patient complained of dull chest pain with worsening cough. The catheter was removed and a sterile, occlusive dressing was applied. Postprocedure sonographic image showed partial evacuation of the pleural effusion. The patient tolerated the procedure well without immediate complication. FINDINGS: Large right pleural effusion IMPRESSION: Successful ultrasound-guided right thoracentesis with evacuation of 1800 cc cloudy yellow fluid. Signed by: Dr. Thee Hong M.D. on 05/06/2018 11:20 AM
--- NOTE | 2018-05-06 11:30 | Diagnostic Imaging Report ---
EXAM: US ABDOMEN COMPLETE DATE: 05/06/2018 7:00 AM Time stamp on exam: INDICATION: Cirrhosis COMPARISON: None TECHNIQUE: Transverse and longitudinal wilson scale and color doppler sonographic images of the upper abdomen were obtained. FINDINGS: LIVER 16 cm in the right midclavicular line. Coarse and echogenicity, nodular contour, no masses. SPLEEN 9.4 cm in maximum diameter. Normal echogenicity, no masses. GALLBLADDER No sludge or shadowing calculus. Mild wall thickening. Negative sonographic Solano's sign. BILE DUCTS No intra nor extra-hepatic biliary dilation. Common bile duct measures 0.3 cm PANCREAS: Visualized portions are normal. RIGHT KIDNEY: 10.7 cm Echogenicity: Normal Collecting System: No hydronephrosis Stones: None Cyst/Mass: None LEFT KIDNEY: 9.4 cm Echogenicity: Normal Collecting System: No hydronephrosis Stones: None Cyst/Mass: None VESSELS: Aorta: Visualized portions are within normal size limits Inferior Vena Cava: Patent Main Portal Vein: 1.3 cm, normal size with hepatopetal flow. FREE FLUID: Moderate ascites. Right pleural effusion partially visualized. IMPRESSION: Cirrhosis with portal hypertension evidenced by moderate ascites and partially visualized right pleural effusion. Mild gallbladder wall thickening is likely attributable to portal hypertension and/or hypoproteinemia in the absence of cholelithiasis and in the setting of a negative sonographic Solano sign. Signed by: Dr. Thee Hong M.D. on 05/06/2018 11:27 AM
[2018-05-06] MEDS: FUROSEMIDE 40 MG TAB PO SCH ×2 (12:34→16:24)
[2018-05-06] MEDS: SODIUM CHLORIDE 1 GM TAB PO SCH ×2 (12:35→16:24)
[2018-05-06] MEDS ORDERED: MAGNESIUM SULFATE 2GM/50ML 50 ML IV ONE (14:30)
--- NOTE | 2018-05-06 15:15 | NUR ---
Pt was gone for procedure. RD will revisit tomorrow AM.
[2018-05-06] MEDS: SODIUM BICARBONATE 650 MG TAB PO SCH (16:23)
[2018-05-06] MEDS: LACTULOSE SYRUP 20 GM/30 ML UDC PO SCH (16:23)
[2018-05-06] MEDS: RIFAXIMIN 550 MG TABLET PO SCH (16:24)
--- NOTE | 2018-05-06 16:37 | Progress Note ---
DATE: 05/06/2018 Pulmonary Medicine Progress Note SUBJECTIVE: Ms. Greene was seen and examined at bedside. She continues to have steady progress. The patient with ultrasound done of the chest. Thoracentesis was performed on right side, 1800 mL was removed. The patient had limitation procedure as it was stopped early due to the chest tightness and blood pressure to 90. The patient with blood pressure much better now 105. The patient is mildly confused on my evaluation or at least taking time to think through things. REVIEW OF SYSTEMS: No headache, no bleeding. OBJECTIVE: VITAL SIGNS: Afebrile. Vital signs noted per the chart record. GENERAL: In no acute distress. Alert and calm. HEENT: Normocephalic and atraumatic. NECK: Supple. Throat midline. LUNGS: Bilateral air entry, few rhonchi, decreased breath sounds on the right side. CARDIOVASCULAR: S1 and S2. No murmurs, rubs, or gallops. ABDOMEN: Soft and nontender. EXTREMITIES: No clubbing. No cyanosis. There is 1+ edema to the legs. INTEGUMENT: No rash or purpura. LABORATORY DATA: Sodium 129, 5.0 potassium, 64 BUN, 2.75 creatinine, 20 bicarbonate. White count 5.8, 33 hematocrit, and 85 platelets. IMPRESSION AND PLAN: 1. Massive right-sided pleural effusion. 2. Hepatic hydrothorax. 3. Acute on chronic kidney failure. 4. Mild confusion versus disorganization of thought. 5. Former alcoholic liver disease/cirrhosis. Continue at this time with diuretics as ordered by renal specialist. Thoracentesis was ordered. I will discuss with GI if the patient is a candidate for TIPS or any other procedures that can occur in the near future. We will consider placement of [place] PleurX catheter. Of course, once the patient's kidneys are stabilized, it can be considered how close the patient is to transplant and consideration to be modified based on that possibility. We will follow along closely. MD MARLON Narvaez/MODL /[id number]
[2018-05-06] MEDS ORDERED: POTASSIUM CHLORIDE 10MEQ EA PO SCH (17:00)
[2018-05-06] MEDS ORDERED: POTASSIUM CHLORIDE 20 MEQ TAB CR PO SCH (17:00)
--- NOTE | 2018-05-06 19:00 | NUR ---
Report given to oncoming nurse of patient's status. NO s/s of acute distress noted.
--- NOTE | 2018-05-06 21:23 | Consultation ---
DATE OF CONSULTATION: 05/06/2018 REASON FOR CONSULTATION: Acute kidney injury. HISTORY OF PRESENT ILLNESS: This is a 58-year-old female with underlying history of alcoholic cirrhosis, portal hypertension, who comes in on a regular basis here as an outpatient for thoracentesis. This time around, developed a large pleural effusion, probably due to increased intra-abdominal pressure and ascites and underwent thoracentesis. Renal has been consulted for management of acute kidney injury. Baseline serum creatinine 1.69. The patient denies prior history of any kidney insufficiency or kidney stone disease. She denies diabetes. Admits to hypertension. States she has quit drinking and does not smoke. HOME MEDICATION: Furosemide, lactulose, lorazepam, nifedipine, and potassium chloride tablets. ALLERGIES: NO APPARENT DRUG ALLERGIES. SOCIAL HISTORY: As above. FAMILY HISTORY: Significant for hypertension. CURRENT MEDICATIONS: Humalog subcu protocol, Lasix 40 mg p.o. b.i.d., lactulose, nifedipine 30 mg p.o. daily, potassium chloride 10 mEq p.o. b.i.d., rifaximin 550 mg p.o. b.i.d., sodium chloride 2 g p.o. b.i.d., which I started earlier. LABORATORY DATA: Laboratory test shows a white count 6.57, hemoglobin 12.3. Sodium 129, potassium 5, bicarbonate 20, BUN 54, creatinine 2.75, calcium 8, magnesium 1.6. PHYSICAL EXAMINATION: GENERAL: The patient is awake, alert, oriented x3, lying supine in bed, in no apparent distress. VITAL SIGNS: Blood pressure of 101/65, pulse rate 90, afebrile, respiratory rate 18, oxygen saturation 97% on room air. HEAD AND NECK: Cornea clear. Mucosa moist. LUNGS: Decreased air entry with bad percussion note in the right lower zone with no rales. Left lung field relatively clear. HEART: S1, S2 audible. Soft, 2-3/6 ejection systolic murmur heard over left sternal border. ABDOMEN: Otherwise soft and nontender. Distended abdomen. Flank is full. EXTREMITIES: Lower extremity examination shows trace edema. IMPRESSION AND PLAN: 1. Ffvsc-po-yvlruuh kidney failure, probably acute tubular necrosis, must rule out hepatorenal syndrome. We will obtain urine creatinine and urine sodium level. We will calculate fraction excretion of sodium. We will discontinue p.o. potassium. Start sodium bicarbonate. 2. Hyponatremia, multifactorial, likely related to cirrhosis. We will place on p.o. fluid restriction. Continue with Lasix. Continue with salt tablets. Kidney ultrasound shows a 10.7 and 9.4 cm kidneys. Has right-sided pleural effusion, ascites, portal hypertension, underlying cirrhosis. Workup order discussed with the patient. MD MURALI Davis/MAGDY /[id number]
[2018-05-07] VITALS (8 sets, daily range): BP systolic 93–117; BP diastolic 55–86
[2018-05-07 05:46] LABS: BASOPHILS % 0.5 % (0.0-1.0); EOSINOPHILS # (AUTO) 0.1 (0.0-0.4); EOSINOPHILS % 1.8 % (0.0-6.0); HEMATOCRIT 32.5 % (34.2-44.1); HEMOGLOBIN 10.9 g/dL (12.0-16.0); LYMPHOCYTES # (AUTO) 1.4 (1.0-3.2); LYMPHOCYTES % 21.2 % (18.0-39.1); MEAN CORPUSCULAR HEMOGLOBIN 29.9 pg (28-32); MEAN CORPUSCULAR HGB CONC 33.5 g/dL (31-35); MEAN CORPUSCULAR VOLUME 89.3 fL (81-99); MONOCYTES % 15.3 % (4.4-11.3); NEUTROPHILS % 60.9 % (38.7-80.0); PLATELET COUNT 74 x10e3/uL (140-360); RED BLOOD COUNT 3.64 x10e6/uL (3.6-5.1); RED CELL DISTRIBUTION WIDTH 14.5 % (11.7-14.4)
--- NOTE | 2018-05-07 06:09 | Diagnostic Imaging Report ---
Examination: Single AP view of the chest. COMPARISON: AP chest 05/06/2018 INDICATION: Recurrent right pleural effusion. IMPRESSION: 1. Lines and Tubes: None 2. Interval increase in size of previously visualized right-sided pleural effusion and likely associated compressive atelectasis of the right lung. Left lung is grossly clear. 3. Cardiac silhouette is obscured. Pulmonary vasculature is normal. 4. No acute bony abnormalities. Signed by: Dr. Erlin Tarango M.D. on 05/07/2018 6:06 AM
[2018-05-07 06:16] LABS: ALBUMIN 1.5 g/dL (3.5-5.0); ALBUMIN/GLOBULIN RATIO 0.4 (0.8-2.0); ANION GAP 8.2 mmol/L (8-16); CALCIUM 7.7 mg/dL (8.4-10.2); CREATININE, SERUM 2.78 mg/dL (0.57-1.11); POTASSIUM 4.2 mmol/L (3.5-5.1)
[2018-05-07] MEDS: INSULIN LISPRO 100 UNIT/1 ML 3ML VIAL SQ SCH ×4 (07:30→20:30)
[2018-05-07] MEDS: LACTULOSE SYRUP 20 GM/30 ML UDC PO SCH ×2 (07:30→16:30)
[2018-05-07] MEDS: FUROSEMIDE 40 MG TAB PO SCH (08:41)
[2018-05-07] MEDS: SODIUM CHLORIDE 1 GM TAB PO SCH ×2 (08:42→16:51)
[2018-05-07] MEDS: RIFAXIMIN 550 MG TABLET PO SCH ×2 (08:42→16:51)
[2018-05-07] MEDS: SODIUM BICARBONATE 650 MG TAB PO SCH ×2 (08:42→16:51)
[2018-05-07] MEDS: NIFEDIPINE CR 30 MG TAB PO SCH (08:42)
[2018-05-07] MEDS ORDERED: LACTULOSE SYRUP 20 GM/30 ML UDC PO SCH (09:00)
--- NOTE | 2018-05-07 13:48 | Diagnostic Imaging Report ---
Procedure: Ultrasound-guided therapeutic paracentesis Pre-operative diagnosis: Moderate volume ascites Post-operative diagnosis: Resolution of ascites post paracentesis Conscious Sedation: None Additional Medications: Lidocaine 1% for local anesthesia Estimated blood loss: None Specimens: None Implants: None Condition at completion: Stable Disposition: Recovery in floor DISCUSSION: Informed consent was obtained and documented in the medical record after discussion of risks and benefits. Preliminary sonographic evaluation confirmed moderate volume ascites. A suitable percutaneous approach in the right mid abdomen was identified and the overlying skin was prepped and draped in standard sterile fashion. 1% lidocaine was infiltrated into the skin and subcutaneous tissues for local anesthesia. Then under continuous sonographic guidance, a 5 Malay Yueh needle catheter was advanced into the peritoneal space with removal of 2400 cc of cloudy slightly whitish fluid. Post procedural ultrasound demonstrated resolution of ascites. The catheter was removed and a sterile dressing was applied. The patient tolerated the procedure well without immediate complication. IMPRESSION: Ultrasound-guided therapeutic paracentesis with removal of 2400 cc of cloudy fluid. Signed by: Dr. Caitlin Lee MD on 05/07/2018 1:45 PM
--- NOTE | 2018-05-07 18:03 | Progress Note ---
DATE: 05/07/2018 Pulmonary Medicine Progress Note SUBJECTIVE: Ms. Greene was seen and examined at bedside. She continues to have steady progress. The patient is walking today. She is on room air FiO2. She went for paracentesis today. With subtotal amount, she did not have any complications from paracentesis. REVIEW OF SYSTEMS: No chest pain, no rash. OBJECTIVE: VITAL SIGNS: Afebrile, vital signs noted per the chart record. GENERAL: No acute distress, alert and calm. HEENT: Normocephalic, atraumatic. NECK: Supple. Throat midline. LUNGS: Bilateral air entry, decreased breath sounds on the right. CARDIOVASCULAR: S1, S2. No murmurs, rubs, or gallops. ABDOMEN: Soft, nontender. EXTREMITIES: No clubbing, no cyanosis. There is trace edema. INTEGUMENT: No rash or purpura. LABORATORY DATA: 55 BUN, 2.8 creatinine, 21 bicarbonate. 6.5 white count, 33 hematocrit, 74 platelets. IMPRESSION AND PLAN: 1. Recurrent ascites. 2. Recurrent pleural effusion. 3. Hepatic hydrothorax. 4. Acute on chronic kidney failure. Continue diuresis as per cable rigger. I discussed at length with the GI doctor today. I discussed at length with the Interventional Radiology team. Interventional Radiology team feels if the patient has open insurance, she can get thoracentesis two or three times a week if needed to improve stability with her blood pressure and hemodynamics, given her sensitivity issues to these procedures. There was consideration for tunneled pleural catheter placement, but this will be deferred after discussion with Interventional Radiology team in lieu of the careful drainages managed directly by physician. The patient in the near future will be arranged for transfer to transplant evaluation. MD MARLON Narvaez/MAGDY /[id number]
[2018-05-07] MEDS: CITRIC ACID/SODIUM CITRATE 30 ML UDC PO SCH (20:25)
[2018-05-08] VITALS (8 sets, daily range): BP systolic 87–119; BP diastolic 56–79
[2018-05-08 06:07] LABS: ALBUMIN 1.5 g/dL (3.5-5.0); ALBUMIN/GLOBULIN RATIO 0.4 (0.8-2.0); ANION GAP 9.1 mmol/L (8-16); CALCIUM 7.6 mg/dL (8.4-10.2); CREATININE, SERUM 2.61 mg/dL (0.57-1.11); POTASSIUM 4.1 mmol/L (3.5-5.1)
[2018-05-08] MEDS: LACTULOSE SYRUP 20 GM/30 ML UDC PO SCH ×2 (07:30→16:30)
[2018-05-08] MEDS: INSULIN LISPRO 100 UNIT/1 ML 3ML VIAL SQ SCH ×4 (07:30→21:00)
[2018-05-08] MEDS: NIFEDIPINE CR 30 MG TAB PO SCH (09:00)
[2018-05-08] MEDS: FUROSEMIDE 40 MG TAB PO SCH (09:42)
[2018-05-08] MEDS: CITRIC ACID/SODIUM CITRATE 30 ML UDC PO SCH ×3 (09:42→21:14)
[2018-05-08] MEDS: SODIUM CHLORIDE 1 GM TAB PO SCH ×2 (09:44→17:21)
[2018-05-08] MEDS: RIFAXIMIN 550 MG TABLET PO SCH ×2 (09:44→17:21)
[2018-05-08] MEDS ORDERED: ALBUMIN 5% 0.05 GM/ML BTL IV ONE (12:00)
[2018-05-08] MEDS ORDERED: ALBUMIN 5% 250ML 500 ML IV ONE (12:15)
[2018-05-08] MEDS ORDERED: ALBUMIN 5% 250ML 250 ML IV ONE ×2 (12:30→16:15)
--- NOTE | 2018-05-08 16:17 | Progress Note ---
DATE: 05/08/2018 Coronary Medicine Progress Note SUBJECTIVE: Ms. Greene was seen and examined at bedside. She continues to have better walking distance. However, her blood pressure did go down into the 80s range today. We gave her bolus resuscitation. The patient furthermore with no apparent bleeding. Discussions with Interventional Radiology team ensued yesterday evening and planning for next drainage has occurred. REVIEW OF SYSTEMS: No headaches, no bleeding, no double vision. OBJECTIVE: VITAL SIGNS: Afebrile, vital signs noted per the chart record. GENERAL: No acute distress. Alert and calm. HEENT: Normocephalic and atraumatic. NECK: Supple. Throat midline. LUNGS: Bilateral air entry, decreased breath sound on the right greater than left, few rales. CARDIOVASCULAR: S1 and S2. No murmurs, rubs, or gallops. ABDOMEN: Soft and nontender. EXTREMITIES: No clubbing, no cyanosis. There is 1+ edema. INTEGUMENT: No rashes or purpura. LABORATORY DATA: BUN 59, creatinine 2.6, white count 6.5, and hematocrit 33. ASSESSMENT: 1. Recurrent massive pleural effusion. 2. Hepatic hydrothorax. 3. Recurrent ascites. 4. Weakness. 5. Alcohol dependency, alcohol cirrhosis. PLAN: Continue current treatment at this time. After discussion with Radiology team, thoracentesis is planned tentatively for Thursday. Follow up the blood pressure, given extra albumin and possibly extra fluid today. MD MARLON Narvaez/MAGDY /[id number]
--- NOTE | 2018-05-08 17:02 | Progress Note ---
DATE: Internal Medicine Progress Note SUBJECTIVE: The patient is doing well today except for an episode of hypotension. She is getting albumin today. OBJECTIVE: HEART: Regular rhythm. Normal S1, S2 sounds. LUNGS: Clear bilaterally. ABDOMEN: Soft, nontender. No distention. No visceromegaly. EXTREMITIES: Showed no evidence of cyanosis, edema, or trauma. VITAL SIGNS: Blood pressure 87/60, temperature 37 degrees, heart rate 86 per minute, respiratory rate 17 per minute, and oxygen saturation 95%. LABORATORY DATA: BMP; sodium 131, potassium 4.1, chloride 105, CO2 21, BUN 59, creatinine 2.61, glucose 158. CBC; white blood count 6.55, hemoglobin 10.9, hematocrit 32.5, and platelet count 74,000. PT 14.4, INR 1.03, and PTT 35.5. AST 14, ALT 23, total bilirubin 0.6, alkaline phosphatase 187. FINAL IMPRESSION: 1. Right pleural effusion, status post thoracentesis. 2. Hypotension. 3. Cirrhosis with ascites. 4. Acute on chronic renal failure, stage 3. 5. Anemia of chronic disease. PLAN OF TREATMENT: The patient is going to get albumin IV. Continue Zofran 4 mg IV q.4 hours as needed. Continue monitoring blood sugar before meals and at bedtime. Continue lactulose 20 g twice a day. Continue Xifaxan 550 mg twice a day, Lorazepam 0.5 mg q.8 hours as needed, furosemide 40 mg daily. We are going to discontinue nifedipine because of hypotension. Continue also citric acid and sodium citrate 30 mL three times a day. Continue monitoring BUN, creatinine, and electrolytes. MD HARLEY Randolph/MODL /[id number]
--- NOTE | 2018-05-08 23:30 | NUR ---
Dr. Marry Watson here for rounding. No orders.
[2018-05-09] VITALS (8 sets, daily range): BP systolic 95–122; BP diastolic 63–85
[2018-05-09] MEDS: LACTULOSE SYRUP 20 GM/30 ML UDC PO SCH ×2 (07:30→16:30)
[2018-05-09] MEDS: INSULIN LISPRO 100 UNIT/1 ML 3ML VIAL SQ SCH ×4 (07:30→21:20)
[2018-05-09] MEDS: SODIUM CHLORIDE 1 GM TAB PO SCH ×2 (08:53→17:52)
[2018-05-09] MEDS: FUROSEMIDE 40 MG TAB PO SCH (08:53)
[2018-05-09] MEDS: RIFAXIMIN 550 MG TABLET PO SCH ×2 (08:53→17:52)
[2018-05-09] MEDS: CITRIC ACID/SODIUM CITRATE 30 ML UDC PO SCH ×3 (08:53→21:19)
--- NOTE | 2018-05-09 14:45 | NUR ---
Visit made by the Spiritual Care Department Pastoral Visitor, Garland Trivedi. PV provided pastoral presence, communion, prayer, hospitality, and supportive listening. Pastoral Visitor informed pt/family of the scope of [employer] and availability. GREGORIO COLINDRES Z [employer] Programmer Spiritual Care Department O: [phone] Pager: [phone] ([phone] calling from)
--- NOTE | 2018-05-09 14:47 | Progress Note ---
DATE: 05/09/2018 Internal Medicine Progress Note SUBJECTIVE: The patient is doing well. No significant complaint. OBJECTIVE: VITAL SIGNS: Blood pressure 116/77, temperature 97.0, heart rate 88 per minute, respiratory rate 18 per minute, oxygen saturation 95%. HEART: Show regular rhythm. Normal S1, S2 sound. LUNGS: Clear bilaterally. ABDOMEN: Soft, slightly distended. EXTREMITIES: No evidence of cyanosis, edema, or trauma. LABORATORY DATA: BMP; sodium 131, potassium 4.1, chloride 105, CO2 of 21, BUN 59, creatinine 2.65, and glucose 138. CBC; white count 6.55, hemoglobin 10.9, hematocrit 32.5, platelet count 74,000. PT 14.4, INR is 1.07, PTT 35.5. AST 41, ALT 23, total bilirubin 0.6, alkaline phosphatase 187. FINAL IMPRESSION: 1. Cirrhosis of the liver secondary to alcohol abuse. 2. Right pleural effusion, status post thoracentesis. 3. Acute on chronic renal insufficiency, most likely secondary to hepatorenal syndrome. 4. Anemia of chronic disease secondary to chronic renal insufficiency. 5. Hypotension, which is resolved. PLAN OF TREATMENT: Continue Zofran 4 mg IV q.4 hours as needed. Monitor blood sugar a.c. and h.s. Xifaxan 550 mg twice a day, furosemide 40 mg daily, lorazepam 0.5 mg q.8 hours as needed, citric acid and sodium citrate 30 mL three times a day, lactulose 20 g twice a day. The patient going to be referred to the liver specially for a possibility of liver transplant by Dr. Audi Watson. MD HARLEY Randolph/MAGDY /[id number]
--- NOTE | 2018-05-09 18:03 | Progress Note ---
DATE: 05/09/2018 Pulmonary Medicine Progress Note SUBJECTIVE: Ms. Greene is seen and examined at bedside. She continues to have steady progress. No respiratory distress. She is on room air FiO2 right now. She is able to walk without getting presyncope. Her tummy is getting more tight. REVIEW OF SYSTEMS: No headaches, no bleeding. OBJECTIVE: VITAL SIGNS: Afebrile, vital signs noted per the chart record. GENERAL: In no acute distress, alert and calm. HEENT: Normocephalic, atraumatic. NECK: Supple. Throat midline. LUNGS: Bilateral air entry, decreased breath sounds, significant on the right side. Rare rhonchi. CARDIOVASCULAR: S1, S2. No murmurs, rubs, or gallops. ABDOMEN: Soft, nontender. EXTREMITIES: No clubbing, no cyanosis, there is no edema. INTEGUMENT: No rash or purpura. IMPRESSION: 1. Massive right-sided pleural effusion, recurrent. 2. Hepatic hydrothorax. 3. Nptki-lj-fengjxd kidney failure, likely hepatorenal. PLAN: At this time, wish to continue further observation. Continue to follow up on hemodynamics. Ensure appropriate blood pressure. The patient will have continued followup of kidney function through her kidney expert. Furthermore, the patient will have repeat thoracentesis tomorrow. Gastroenterology is considering liver transplant evaluation. MD MARLON Narvaez/MAGDY /[id number]
--- NOTE | 2018-05-09 22:12 | NUR ---
DR COWAN HERE FOR ROUNDING. ORDERS RECEIVED FOR DIETARY CONSULT 2GRAM NA DIET
[2018-05-10] VITALS (7 sets, daily range): BP systolic 96–115; BP diastolic 61–78
--- NOTE | 2018-05-10 00:28 | NUR ---
OBTAINED SIGNED CONSENT FORM FROM PATIENT. NO CONCERNS OR COMPLAINTS. PATIENT VERBALIZED UNDERSTANDING.
--- NOTE | 2018-05-10 07:00 | NUR ---
The pt. is maintained N P O for thoracentesis by IR and has no comp or concerns at this time.
[2018-05-10] MEDS: INSULIN LISPRO 100 UNIT/1 ML 3ML VIAL SQ SCH ×4 (07:30→21:30)
[2018-05-10] MEDS: LACTULOSE SYRUP 20 GM/30 ML UDC PO SCH ×2 (07:30→16:53)
[2018-05-10] MEDS: RIFAXIMIN 550 MG TABLET PO SCH ×2 (09:00→16:53)
[2018-05-10] MEDS: CITRIC ACID/SODIUM CITRATE 30 ML UDC PO SCH ×3 (09:00→22:15)
[2018-05-10] MEDS: FUROSEMIDE 40 MG TAB PO SCH (09:00)
[2018-05-10] MEDS: SODIUM CHLORIDE 1 GM TAB PO SCH ×2 (09:00→16:53)
--- NOTE | 2018-05-10 12:00 | NUR ---
The pt. is out of the room for Thoracentesis at this time.
--- NOTE | 2018-05-10 12:26 | Diagnostic Imaging Report ---
Examination: Single AP view of the chest. COMPARISON: Chest radiograph 05/07/2018 INDICATION: Post thoracentesis DISCUSSION: See impression IMPRESSION: Interval repeat right thoracentesis with partial evacuation of large effusion and improved aeration of the right lung. No pneumothorax. Left lung remains grossly clear. Signed by: Dr. Thee Hong M.D. on 05/10/2018 12:23 PM
--- NOTE | 2018-05-10 12:53 | Diagnostic Imaging Report ---
Date and Time: 05/10/2018 Procedure: Ultrasound-guided right thoracentesis hair rooting machine operator: Dr. Hong Pre-operative diagnosis: Right pleural effusion Post-operative diagnosis: Right pleural effusion Conscious Sedation: None The patient's heart rate and pulse oximetry were continuously monitored by the interventional radiology nurse. Blood pressure was monitored at 5 minute intervals. Additional Medications: Lidocaine 1% for local anesthesia Estimated blood loss: Minimal Blood products administered: None Specimens: 2200 cc cloudy yellow fluid Implants: None Condition at completion: Stable Disposition: Returned to floor Complications: No immediate DISCUSSION: Informed consent was obtained and documented in the medical record. The patient was placed in the sitting position on the sonographic table. The right posterolateral chest wall was prepped and draped in the standard sterile fashion. A suitable percutaneous intercostal approach to the right pleural space was identified and the overlying skin was infiltrated with 1% lidocaine for local anesthesia. Then under continuous sonographic guidance a 5 [place] Yueh needle catheter was advanced into the pleural space. The catheter was advanced off the needle and connected to vacuum bottle with subsequent evacuation of 2200 cc cloudy yellow fluid, at which point the patient complained of dull chest pain with worsening cough. The catheter was removed and a sterile, occlusive dressing was applied. Postprocedure sonographic image showed partial evacuation of the pleural effusion. The patient tolerated the procedure well without immediate complication. FINDINGS: Large right pleural effusion IMPRESSION: Successful ultrasound-guided right thoracentesis with evacuation of 2200 cc cloudy yellow fluid. Signed by: Dr. Thee Hong M.D. on 05/10/2018 12:50 PM
--- NOTE | 2018-05-10 13:00 | NUR ---
The pt. returned to the room and is requesting coffee. There was 2200 cc's fluid removed.
--- NOTE | 2018-05-10 15:03 | Progress Note ---
DATE: 05/10/2018 Pulmonary Medicine Progress Note SUBJECTIVE: Ms. Greene was seen and examined at bedside. She continues with slow progress. She feels good, although it was noted that she has still retained significantly decreased breath sounds in the right hemithorax. The patient is going down for thoracentesis shortly. Blood pressure is still borderline low. REVIEW OF SYSTEMS: No headaches, no GI bleed. OBJECTIVE: VITAL SIGNS: Afebrile, vital signs noted per the chart record. GENERAL: No acute distress, alert and calm. HEENT: Normocephalic, atraumatic. NECK: Supple. Throat midline. LUNGS: Bilateral air entry, but significantly decreased right side. No wheezes. CARDIOVASCULAR: S1 and S2. No murmurs, rubs, or gallops. ABDOMEN: Soft, nontender. EXTREMITIES: No clubbing, no cyanosis, no edema. INTEGUMENT: No rash or purpura. LABORATORY DATA: 59 BUN, 2.6 creatinine, 21 bicarbonate. 6.5 white count, 33 hematocrit, 24 platelets. IMPRESSION AND PLAN: 1. Recurrent right-sided massive pleural effusion. 2. Significant ascites, recurrent. 3. Advanced liver disease. 4. Hepatic hydrothorax. 5. Oxsmt-hp-mavwreg kidney failure. Followup electrolytes. Followup blood pressure. Thoracentesis today. I discussed with the interventional radiology team and they will be considering the intermittent recurrent thoracentesis, although to be considered when they feel appropriate to consider for conversion to an indwelling tunneled pleural catheter placement. In the meantime, the patient to be bridged to either transplant or TIPS hopefully with evaluation by a liver specialist as per Dr. Watson. MD MARLON Narvaez/MAGDY /[id number]
--- NOTE | 2018-05-10 19:27 | NUR ---
Patient received lying in bed. AAO x 4. Patient had no complaints of pain. No signs of respiratory distress. Fall precautions implemented. Bed locked and in lowest position. Bed rails up x 2. Patient instructed to call for assistance when needed. Call light within reach.
--- NOTE | 2018-05-10 20:17 | NUR ---
Nutrition Screen Note RD Recommendation for Physician: -Rec adding ADA to renal diet as medically appropriate -RD provided diet education on 05/10 Plan of Care: RD following, monitoring for tolerance and adequacy, diet education Nutrition reason for involvement: RN Consult diet education Primary Diagnose(s): 1. Recurrent right-sided massive pleural effusion. 2. Significant ascites, recurrent. 3. Advanced liver disease. 4. Hepatic hydrothorax. 5. Atakb-xl-hnafmce kidney failure. PMH: alcoholic cirrhosis, portal hypertension, CKD, DM Ht: 64in Wt: 144.38lb BMI: 24.8kg/m2 IBW: 120lb RD Assessment: (05/10) Chart reviewed. Labs and meds reviewed. 58yo F, who was admitted for SOB. 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 Pt denied chewing/swallowing problems and nausea/vomiting. Pt was eating like normal. Pt denied hx of CKD in the past. RD provided education on renal diet as consulted. Pt was agreeable with plan. All questions have been answered. Will continue to monitor and follow. Current Diet: renal diet Malnutrition Evaluation (05/10/2018) The patient does not meet criteria for a specified degree of malnutrition at this time. Will re-evaluate at follow-up as appropriate. Diet Education Needs Assessment: Diet education indicated, pt was agreeable with plan. Learner(s): pt Time spent: 30mins Barriers: No barriers identified. Cultural/Language Modifications: No cultural/language modifications noted. Pt speaks Uruguayan. Readiness: Acceptance Method: handouts, explanation Topics: Nutrition guidelines for CKD, potassium, phosphorus, sodium Understanding/Compliance: Expect good understanding/compliance from pt. Will benefit from reinforcement. All questions have been answered. Nutrition Care Level: low Signed: Raysa Maxwell, MS, RD, LD
[2018-05-11] VITALS: BP 104/79
[2018-05-11 04:00] VITALS: BP 101/70
[2018-05-11 06:43] LABS: ANION GAP 10.4 mmol/L (8-16); CALCIUM 7.9 mg/dL (8.4-10.2); CREATININE, SERUM 2.13 mg/dL (0.57-1.11); POTASSIUM 3.4 mmol/L (3.5-5.1)
--- NOTE | 2018-05-11 07:00 | Diagnostic Imaging Report ---
EXAMINATION: CHEST SINGLE (PORTABLE) INDICATION: effusion COMPARISON: 05/10/2018 FINDINGS: AP view TUBES and LINES: None. LUNGS: Minimal aeration of the right lung. Left lung grossly clear. PLEURA: Worsening large right pleural effusion. No left pleural effusion. HEART AND MEDIASTINUM: The cardiomediastinal silhouette is partially obscured. BONES AND SOFT TISSUES: No acute osseous lesion. Soft tissues are unremarkable. UPPER ABDOMEN: No free air under the diaphragm. IMPRESSION: Worsening now large right pleural effusion with minimal aeration of the right lung. Left lung remains grossly clear. Signed by: DR. Jose Guadalupe Siddiqui MD on 05/11/2018 6:57 AM
[2018-05-11] MEDS: INSULIN LISPRO 100 UNIT/1 ML 3ML VIAL SQ SCH ×2 (07:30→11:30)
[2018-05-11] MEDS: LACTULOSE SYRUP 20 GM/30 ML UDC PO SCH (07:30)
[2018-05-11 08:00] VITALS: BP 109/66
--- NOTE | 2018-05-11 08:30 | NUR ---
The pt. report feeling tired this morning but has no further comp.
[2018-05-11] MEDS: RIFAXIMIN 550 MG TABLET PO SCH (09:00)
[2018-05-11] MEDS: FUROSEMIDE 40 MG TAB PO SCH (09:00)
[2018-05-11] MEDS: SODIUM CHLORIDE 1 GM TAB PO SCH (09:00)
[2018-05-11] MEDS: CITRIC ACID/SODIUM CITRATE 30 ML UDC PO SCH (09:00)
[2018-05-11 09:30] VITALS: BP 109/66
[2018-05-11 12:00] VITALS: BP 116/73
--- NOTE | 2018-05-11 12:34 | NUR ---
Dr. Watson has discharged the pt. contingent to the tn with Dr. Peace. A call was placed to Dr. Peace
--- NOTE | 2018-05-11 15:32 | Progress Note ---
DATE: 05/11/2018 Pulmonary Medicine Progress Note SUBJECTIVE: Ms. Greene was seen and examined at bedside. She continues to have some progress. The patient had thoracentesis yesterday once again. Her fluid level come down to below care home point in the radiographic hemithorax. The patient has walked around, feeling okay. She states she is eating well. She had bowel movement. REVIEW OF SYSTEMS: No headaches, no bleeding. OBJECTIVE: VITAL SIGNS: Afebrile, vital signs are noted per the chart record. GENERAL: No acute distress, alert and calm. HEENT: Normocephalic, atraumatic. NECK: Supple. Throat midline. LUNGS: Bilateral air entry, decreased breath sounds on right side, rare rhonchi. CARDIOVASCULAR: S1, S2. No murmurs, rubs, or gallops. ABDOMEN: Soft, nontender. EXTREMITIES: No clubbing, no cyanosis. There is only trace to no edema in the feet. INTEGUMENT: No rash or purpura. LABORATORY DATA: BUN 58, creatinine is 2.13. Potassium is 3.4. White count 7, hematocrit 33, platelets 74. IMPRESSION AND PLAN: 1. Massive recurrent right-sided pleural effusion, transudative. Consistent with hepatic hydrothorax. 2. Recurrent ascites. 3. Cirrhosis. 4. Acute on chronic kidney failure, hepatorenal. Continue at this time to get fluid removal. She is scheduled for the thoracentesis every as outpatient. I am requesting scheduling at least once a week for thoracentesis although it is possible the patient may need more than once a week thoracentesis. Continue medical management as per field associate as much as kidneys allow. We will follow along closely. Attempts to be made to get her to lung transplant for transplant evaluation versus TIPS, which may be less likely due to history of hyperammonemia. Follow up outpatient. MD MARLON Narvaez/MAGDY /[id number]
[2018-05-11 16:00] VITALS: BP 138/94
--- NOTE | 2018-05-11 17:17 | NUR ---
The pt. was discharged home and is aware of her appointment for paracentesis on .
--- NOTE | 2018-05-11 18:20 | NUR ---
Late Entry: CM met with pt earlier today and discussed dc plan. Pt states she comes to [facility] every morning between 09:30-10:00 for standing order for paracentesis. CM received order to assist with setting up outpatient thoracentesis every week for therapeutic. Pt agreed to this. MORE spoke to Tatyana in radiology and confirmed pt still has her appt set up this for paracentesis. MORE met with Tatyana and gave her standing order for weekly thoracentesis 1 x week (not on the same day as paracentesis). Tatyana will contact pt to set up day and time. Patient kept informed of all and agreed. Pt discharged home today.
== END 2018-05-11 16:45 | disposition home or self-care (01) | DRG 186 ==
LOC: ER 14:18 → ERHOLD 18:12 → MED/SURG2 20:12
PROC: 0W993ZZ Drainage of Right Pleural Cavity, Percutaneous Approach (ICD-10-PCS; principal; 2018-05-06)
PROC: 0W9G3ZZ Drainage of Peritoneal Cavity, Percutaneous Approach (ICD-10-PCS; 2018-05-07)
PROC: 0W993ZZ Drainage of Right Pleural Cavity, Percutaneous Approach (ICD-10-PCS; 2018-05-10)
DX: J94.8 Other specified pleural conditions (principal); K76.7 Hepatorenal syndrome; E43 Unspecified severe protein-calorie malnutrition; N17.0 Acute kidney failure with tubular necrosis; E87.1 Hypo-osmolality and hyponatremia; K76.6 Portal hypertension; I12.9 Hypertensive chronic kidney disease with stage 1 through stage 4 chronic kidney disease, or unspecified chronic kidney disease; E11.22 Type 2 diabetes mellitus with diabetic chronic kidney disease; N18.3 Chronic kidney disease, stage 3 (moderate); K70.31 Alcoholic cirrhosis of liver with ascites; E78.5 Hyperlipidemia, unspecified; F10.21 Alcohol dependence, in remission; Z87.891 Personal history of nicotine dependence; Z91.19 Patient's noncompliance with other medical treatment and regimen; D63.1 Anemia in chronic kidney disease; I95.9 Hypotension, unspecified; R07.9 Chest pain, unspecified
CPT/HCPCS: 32555; 36415; 49083; 71045; 74470; 76700; 80048; 80053; 81001; 82105; 82550; 82553; 82570; 82948; 83036; 83735; 83880; 84156; 84300; 84484; 85025; 85610; 85730; 86039; 93005; 93306; 99284; J3475

== ENCOUNTER → 2018-05-05 | Outpatient (CLI) | payer BC ==
--- NOTE | 2018-05-05 14:38 | Diagnostic Imaging Report ---
EXAMINATION: CHEST XRAY POST PROCEDURE INDICATION: Status post thoracentesis. COMPARISON: Chest radiograph 04/16/2018. FINDINGS: TUBES and LINES: None. LUNGS: Opacification of the right hemithorax with near collapse of the right lung with mild residual aeration in the right upper lung. PLEURA: There is a large right pleural effusion. No left pleural effusion. No evidence of pneumothorax. HEART AND MEDIASTINUM: Mild deviation of the cardiomediastinal silhouette to the right. BONES AND SOFT TISSUES: No acute osseous abnormality. UPPER ABDOMEN: No free air under the diaphragm. IMPRESSION: Large right pleural effusion with near collapse of right lung with some residual aeration in the right upper lung. No evidence of pneumothorax post right thoracentesis. The patient was taken to the emergency department post thoracentesis on 05/05/2018 at 2:20 PM for further management. Signed by: Dr. Caitlin Lee MD on 05/05/2018 2:34 PM
--- NOTE | 2018-05-05 15:03 | Diagnostic Imaging Report ---
Procedure: Ultrasound-guided right diagnostic and therapeutic thoracentesis. movie machine operator: Caitlin Lee MD Pre-operative diagnosis: Large right pleural effusion Post-operative diagnosis: Large right pleural effusion Conscious Sedation: None Additional Medications: Lidocaine 1% for local anesthesia Contrast used: None Estimated blood loss: <5 cc Blood proximal administered: None Specimens: 1000 cc slightly yellow serous fluid Implants: None Condition at completion: Stable Disposition: To ED DISCUSSION: Informed consent was obtained and documented in the medical record. The patient was placed in the upright position. The right posterolateral chest wall was prepped and draped in the standard sterile fashion. A suitable percutaneous intercostal approach to the right pleural space was identified and the overlying skin was infiltrated with 1% lidocaine for local anesthesia. Large right pleural effusion was identified on ultrasound. Then under continuous sonographic guidance, a 5 Guyanese Gertrudeeh needle catheter was advanced into the pleural space. The catheter was advanced off the needle and connected to vacuum bottle with subsequent evacuation of 1000 cc of serous fluid. The catheter was removed and a sterile, occlusive dressing was applied. Postprocedure sonographic image showed resolved effusion. The patient tolerated the procedure well without immediate complication. Sample was sent to lab. IMPRESSION: Ultrasound-guided diagnostic and therapeutic right thoracentesis with evacuation of 1000 cc of serous fluid. Given the patient's findings of persistent large right pleural effusion post thoracentesis and tachypnea she was taken to the ED for further evaluation. Signed by: Dr. Caitlin Lee MD on 05/05/2018 3:00 PM
== END ==
LOC: US 12:00
PROVIDERS: ATTEND Internal Medicine Gastroenterology
DX: J90 Pleural effusion, not elsewhere classified (principal)
CPT/HCPCS: 32555; 71045; 88112; 88305

== ENCOUNTER → 2018-05-13 | Outpatient (CLI) | payer BC ==
--- NOTE | 2018-05-13 11:20 | Diagnostic Imaging Report ---
Procedure: Ultrasound-guided therapeutic paracentesis Pre-operative diagnosis: Moderate volume ascites Post-operative diagnosis: Resolution of ascites post paracentesis Conscious Sedation: None Additional Medications: Lidocaine 1% for local anesthesia Estimated blood loss: Less than 2 cc Specimens: 4,700 cc of ascitic fluid Implants: None Condition at completion: Stable Disposition: Discharged to home DISCUSSION: Informed consent was obtained and documented in the medical record after discussion of risks and benefits. Preliminary sonographic evaluation confirmed moderate volume ascites with the largest pocket in the right upper mid abdomen below the liver. The overlying skin was prepped and draped in standard full barrier sterile fashion. 1% lidocaine was infiltrated into the skin and subcutaneous tissues for local anesthesia. Then under continuous sonographic guidance, a 5 [place] Yueh needle catheter was advanced into the peritoneal space with removal of 4,700 cc of cloudy slightly whitish fluid. Post procedural ultrasound demonstrated resolution of ascites. The catheter was removed and a sterile dressing was applied. The patient tolerated the procedure well without immediate complication. Specimen was sent to the laboratory for analysis. IMPRESSION: Ultrasound-guided therapeutic paracentesis with removal of 4,700 cc of cloudy fluid. Signed by: Dr. Gio Del Valle DO on 05/13/2018 11:16 AM
[2018-05-13 13:36] LABS: RBC,BODY FLUID 1100 cells/uL; WBC,BODY FLUID 165 cells/uL
[2018-05-13 14:05] LABS: BODY FLUID APPEARANCE CLOUDY; BODY FLUID TYPE PERITONEAL
[2018-05-13 14:28] LABS: LYMPHOCYTES,BODY FLUID 30 %; MONO/MACROPHG,BODY FLUID 46 %; NEUTROPHILS,BODY FLUID 5 %; OTHER CELLS,BODY FLUID 19 %
== END ==
LOC: US 09:48
PROVIDERS: ATTEND Internal Medicine Gastroenterology
DX: D69.6 Thrombocytopenia, unspecified (principal)
CPT/HCPCS: 36415; 49083; 82040; 82150; 82945; 83615; 83690; 83986; 84157; 84478; 87070; 87116; 87205; 87206; 88112; 88305; 89051

== ENCOUNTER → 2018-05-18 | Outpatient (CLI) | payer BC ==
--- NOTE | 2018-05-18 10:36 | Diagnostic Imaging Report ---
Date and Time: 05/18/2018 Procedure: Ultrasound-guided right thoracentesis lead laying and gluing machine operator: Dr. Hong Pre-operative diagnosis: Right pleural effusion Post-operative diagnosis: Right pleural effusion Conscious Sedation: None The patient's heart rate and pulse oximetry were continuously monitored by the interventional radiology nurse. Blood pressure was monitored at 5 minute intervals. Additional Medications: Lidocaine 1% for local anesthesia Estimated blood loss: Minimal Blood products administered: None Specimens: 2400 cc cloudy yellow fluid Implants: None Condition at completion: Stable Disposition: PACU Complications: No immediate DISCUSSION: Informed consent was obtained and documented in the medical record. The patient was placed in the sitting position on the sonographic table. The right posterolateral chest wall was prepped and draped in the standard sterile fashion. A suitable percutaneous intercostal approach to the right pleural space was identified and the overlying skin was infiltrated with 1% lidocaine for local anesthesia. Then under continuous sonographic guidance a 5 [place] Yueh needle catheter was advanced into the pleural space. The catheter was advanced off the needle and connected to vacuum bottle with subsequent evacuation of 2400 cc cloudy yellow fluid. The catheter was removed and a sterile, occlusive dressing was applied. Postprocedure sonographic image showed partial evacuation of the pleural effusion. The patient tolerated the procedure well without immediate complication. FINDINGS: Large right pleural effusion IMPRESSION: Successful ultrasound-guided right thoracentesis with evacuation of 2400 cc cloudy yellow fluid. Signed by: Dr. Thee Hong M.D. on 05/18/2018 10:33 AM
--- NOTE | 2018-05-18 10:52 | Diagnostic Imaging Report ---
Examination: Single AP view of the chest. COMPARISON: 05/11/2018 INDICATION: Post thoracentesis DISCUSSION: See impression IMPRESSION: Partial aeration of the right lung status post thoracentesis. No pneumothorax. Significant pleural effusion remains. Left lung remains clear. Signed by: Dr. Thee Hong M.D. on 05/18/2018 10:49 AM
== END ==
LOC: US 09:09
PROVIDERS: ATTEND Internal Medicine Critical Care Medicine
DX: J90 Pleural effusion, not elsewhere classified (principal)
CPT/HCPCS: 32555; 71045

== ENCOUNTER → 2018-05-20 | Outpatient (CLI) | payer BC ==
--- NOTE | 2018-05-20 16:52 | Diagnostic Imaging Report ---
Procedure: Ultrasound-guided therapeutic paracentesis dated 05/20/2018 at 3:22 PM Pre-operative diagnosis: Moderate volume ascites Post-operative diagnosis: Resolution of ascites post paracentesis Conscious Sedation: None Additional Medications: Lidocaine 1% for local anesthesia Estimated blood loss: Less than 2 cc Specimens: 5,600 cc of ascitic fluid Implants: None Condition at completion: Stable Disposition: Discharged to home DISCUSSION: Informed consent was obtained and documented in the medical record after discussion of risks and benefits. Preliminary sonographic evaluation confirmed moderate volume ascites with the largest pocket in the right upper mid abdomen below the liver. The overlying skin was prepped and draped in standard full barrier sterile fashion. 1% lidocaine was infiltrated into the skin and subcutaneous tissues for local anesthesia. Then under sonographic guidance, a 5 [place] Yueh needle catheter was advanced into the peritoneal space with removal of 5,600 cc of cloudy slightly cloudy fluid. Post procedural ultrasound demonstrated resolution of ascites. The catheter was removed and a sterile dressing was applied. The patient tolerated the procedure well without immediate complication. Specimen was sent to the laboratory for analysis. IMPRESSION: Ultrasound-guided therapeutic paracentesis with removal of 5,600 cc of cloudy fluid. Signed by: Dr. Gio Del Valle DO on 05/20/2018 4:49 PM
[2018-05-20 18:18] LABS: BODY FLUID APPEARANCE CLOUDY; BODY FLUID TYPE PERITONEAL
[2018-05-20 18:19] LABS: BODY FLUID COLOR YELLOW; RBC,BODY FLUID 245 cells/uL; WBC,BODY FLUID 9 cells/uL
[2018-05-20 18:44] LABS: LYMPHOCYTES,BODY FLUID 51 %; MONO/MACROPHG,BODY FLUID 33 %; NEUTROPHILS,BODY FLUID 3 %; OTHER CELLS,BODY FLUID 13 %
== END ==
LOC: US 13:52
PROVIDERS: ATTEND Internal Medicine Gastroenterology
DX: D69.6 Thrombocytopenia, unspecified (principal); R18.8 Other ascites
CPT/HCPCS: 36415; 49083; 82040; 82150; 82945; 83615; 83690; 83986; 84157; 84478; 87070; 87116; 87205; 87206; 88112; 89051; C1729; 88305

== ENCOUNTER → 2018-05-25 | Outpatient (CLI) | payer BC ==
--- NOTE | 2018-05-25 11:01 | Diagnostic Imaging Report ---
Procedure: Ultrasound-guided right therapeutic thoracentesis. granulating machine operator: Caitlin Lee MD Pre-operative diagnosis: Large right pleural effusion Post-operative diagnosis: Moderate right pleural effusion Conscious Sedation: None Additional Medications: Lidocaine 1% for local anesthesia Contrast used: None Estimated blood loss: <5 cc Blood proximal administered: None Specimens: None. Implants: None Condition at completion: Stable Disposition: To home DISCUSSION: Informed consent was obtained and documented in the medical record. The patient was placed in the upright position. The right posterolateral chest wall was prepped and draped in the standard sterile fashion. A suitable percutaneous intercostal approach to the right pleural space was identified and the overlying skin was infiltrated with 1% lidocaine for local anesthesia. Large right pleural effusion was identified on ultrasound. Then under continuous sonographic guidance, a 5 [employer] needle catheter was advanced into the pleural space. The catheter was advanced off the needle and connected to vacuum bottle with subsequent evacuation of 2400 cc of slightly cloudy, yellow fluid. The catheter was removed and a sterile, occlusive dressing was applied. Postprocedure sonographic image showed improved moderate volume effusion. The patient tolerated the procedure well without immediate complication. IMPRESSION: Ultrasound-guided therapeutic right thoracentesis with removal of 2400 cc of slightly cloudy, yellow fluid. Signed by: Dr. Caitlin Lee MD on 05/25/2018 10:58 AM
--- NOTE | 2018-05-25 11:04 | Diagnostic Imaging Report ---
Examination: Single AP view of the chest. COMPARISON: Chest radiograph 05/18/2018. INDICATION: Post right thoracentesis DISCUSSION: Partial aeration of the right lung status post thoracentesis. The degree of aeration is increased compared to radiograph on 05/18/2018. No pneumothorax. Moderate to large right pleural effusion remains. Left lung remains clear. Cardiomediastinal silhouette is unremarkable. No acute osseous abnormality. IMPRESSION: Partial aeration of the right lung status post thoracentesis without evidence of pneumothorax. Moderate to large right pleural effusion remains. Signed by: Dr. Caitlin Lee MD on 05/25/2018 11:01 AM
== END ==
LOC: US 09:05
PROVIDERS: ATTEND Internal Medicine Critical Care Medicine
DX: J90 Pleural effusion, not elsewhere classified (principal)
CPT/HCPCS: 32555; 71045

== ENCOUNTER → 2018-05-27 | Outpatient (CLI) | payer BC ==
--- NOTE | 2018-05-27 12:52 | Diagnostic Imaging Report ---
Procedure: Ultrasound-guided therapeutic paracentesis dated 05/27/2018 at 11:26 AM Pre-operative diagnosis: Moderate volume ascites Post-operative diagnosis: Decrease in the amount of ascites post paracentesis Conscious Sedation: None Additional Medications: Lidocaine 1% for local anesthesia Estimated blood loss: Less than 5 cc Specimens: 2,950 cc of ascitic fluid Implants: None Condition at completion: Stable Disposition: Discharged to home DISCUSSION: Informed consent was obtained and documented in the medical record after discussion of risks and benefits. Preliminary sonographic evaluation confirmed moderate volume ascites with the largest pocket in the right upper mid abdomen below the liver. The overlying skin was prepped and draped in standard full barrier sterile fashion. 1% lidocaine was infiltrated into the skin and subcutaneous tissues for local anesthesia. Then under sonographic guidance, a 5 [employer] needle-catheter was advanced into the peritoneal space with removal of 2,950 cc of slightly cloudy fluid. Repositioning of the needle was required several times to accomplish this amount of fluid removal. Post procedural ultrasound demonstrated a significant reduction in the amount of ascites. The catheter was removed and a sterile dressing was applied. The patient tolerated the procedure well without immediate complication. Specimen was sent to the laboratory for analysis. IMPRESSION: Ultrasound-guided therapeutic paracentesis with removal of 2,950 cc of cloudy fluid. Signed by: Dr. Gio Del Valle DO on 05/27/2018 12:49 PM
[2018-05-27 14:19] LABS: BODY FLUID APPEARANCE SL.CLOUDY; BODY FLUID COLOR YELLOW; BODY FLUID TYPE PERITONEAL
[2018-05-27 14:21] LABS: RBC,BODY FLUID 425 cells/uL; WBC,BODY FLUID 29 cells/uL
[2018-05-27 14:28] LABS: LYMPHOCYTES,BODY FLUID 49 %; MONO/MACROPHG,BODY FLUID 13 %; NEUTROPHILS,BODY FLUID 2 %; OTHER CELLS,BODY FLUID 36 %
[2018-05-27 14:50] LABS: GLUCOSE,BODY FLUID 119 mg/dL
[2018-05-27 14:52] LABS: AMYLASE,BODY FLUID 63
== END ==
LOC: US 08:51
PROVIDERS: ATTEND Internal Medicine Gastroenterology
DX: D69.6 Thrombocytopenia, unspecified (principal)
CPT/HCPCS: 36415; 49083; 82040; 82150; 82945; 83615; 83690; 83986; 84157; 84478; 87070; 87116; 87205; 87206; 88112; 88305; 89051

== ENCOUNTER 2018-06-01 10:41 | Observation (INO) | payer BC ==
[~2018-06-01] VITALS: Ht 162.6 cm; Wt 68.2 kg
[~2018-06-01 10:41] MED LIST changes: -SODIUM CHLORIDE 0.9% 50ML 50 ML ONE
[2018-06-01 11:02] LABS: BASOPHILS % 0.2 % (0.0-1.0); EOSINOPHILS # (AUTO) 0.1 (0.0-0.4); EOSINOPHILS % 0.8 % (0.0-6.0); HEMATOCRIT 35.6 % (34.2-44.1); LYMPHOCYTES # (AUTO) 1.3 (1.0-3.2); LYMPHOCYTES % 19.4 % (18.0-39.1); MEAN CORPUSCULAR HEMOGLOBIN 29.9 pg (28-32); MEAN CORPUSCULAR HGB CONC 33.7 g/dL (31-35); MEAN CORPUSCULAR VOLUME 88.8 fL (81-99); MONOCYTES # (AUTO) 0.7 (0.2-0.8); MONOCYTES % 11.3 % (4.4-11.3); NEUTROPHILS # (AUTO) 4.5 (2.1-6.9); PLATELET COUNT 99 x10e3/uL (140-360); RED BLOOD COUNT 4.01 x10e6/uL (3.6-5.1); RED CELL DISTRIBUTION WIDTH 14.6 % (11.7-14.4)
[2018-06-01 11:13] LABS: INR 1.06; PROTHROMBIN TIME 14.3 seconds (11.9-14.5)
[2018-06-01 11:21] LABS: AMPHETAMINES SCREEN,URINE NEGATIVE (NEGATIVE); BENZODIAZEPINES SCREEN,URINE POSITIVE (NEGATIVE); PHENCYCLIDINE SCREEN,URINE NEGATIVE (NEGATIVE)
[2018-06-01 11:23] LABS: CLARITY,URINE SL CLOUDY (CLEAR); COLOR,URINE YELLOW (YELLOW)
[2018-06-01 11:24] LABS: ALBUMIN 2.1 g/dL (3.5-5.0); ALBUMIN/GLOBULIN RATIO 0.5 (0.8-2.0); ANION GAP 11.3 mmol/L (8-16); CALCIUM 9.1 mg/dL (8.4-10.2); CREATININE, SERUM 2.43 mg/dL (0.57-1.11); MAGNESIUM 1.7 MG/DL (1.3-2.1); POTASSIUM 5.3 mmol/L (3.5-5.1)
[2018-06-01 11:25] LABS: LEUKOCYTE ESTERASE ,URINE 1+ (NEGATIVE)
[2018-06-01 11:27] LABS: NITRITE,URINE NEGATIVE (NEGATIVE); PROTEIN,URINE DIPSTICK NEGATIVE (NEGATIVE)
--- NOTE | 2018-06-01 11:27 | Diagnostic Imaging Report ---
EXAMINATION: Head and cervical spine CT without contrast. HISTORY: Alteration of consciousness since the 9 before, status post fall the day before, confusion, abrasion to forehead, evaluate for fracture. COMPARISON: None. TECHNIQUE: Multidetector axial images were obtained without contrast from the foramen magnum to the vertex and through the cervical spine. The images were reconstructed using brain and bone algorithms. Thin section brain images were reformatted into coronal and sagittal planes. Dose modulation, iterative reconstruction, and/or weight based adjustment of the mA/kV was utilized to reduce the radiation dose to as low as reasonably achievable. HEAD CT FINDINGS: Skull/difficult/: No lytic or blastic lesions. No fractures. Parenchyma: Normal. No mass, hemorrhage or CT evidence of acute vascular insult. Brain volume: Normal for age. Ventricles: No hydrocephalus or displacement. Arteries: No density suggestive of thrombus. Dural sinuses: No abnormal density. Extra-axial spaces: No abnormal density. Foramen magnum: No mass, Chiari malformation, or basilar invagination. Sella: No obvious mass. Paranasal/mastoid sinuses: Imaged portions unremarkable. CERVICAL SPINE CT FINDINGS: Alignment:Normal alignment and lordosis. Soft tissues: Partially visualized right pleural effusion, questionable mass in the right lower neck, the lack of intravenous evaluation.. Vertebrae: Normal height and density. No acute fracture, infection or neoplasm. Degenerative changes: C1-C2: Mild degenerative changes without stenoses C2-C3: Bilateral facet arthrosis without stenoses C3-C4: Right-sided uncovertebral facet arthrosis. Moderately severe right foraminal stenosis. C4-C5: Uncovertebral and facet arthrosis. Mild bilateral foraminal stenosis. C5-C6: Uncovertebral and facet arthrosis minimally the right. Moderately severe right foraminal stenosis. C6-C7: Uncovertebral and facet arthrosis mainly on the left side, no significant stenoses. C7-T1: Normal Incidental findings: -Partially visualized large right pleural effusion with mass effect upon the upper mediastinal structures and deviation to the left. -Questionable right lower neck mass. IMPRESSION: Head CT: No acute post traumatic intracranial abnormality, particularly no hemorrhage or skull fractures. Cervical spine CT: 1. No acute fractures or dislocations. 2. Chronic degenerative changes as described. 3. Partially visualized large right pleural effusion with mild deviation of the upper mediastinum to the left. Radiology IR consultation is recommended. Note: Acute post traumatic spinal cord, vascular or ligamentous injury cannot adequately be assessed with CT. Signed by: Dr. Cristina Barajas M.D. on 06/01/2018 11:24 AM
--- NOTE | 2018-06-01 11:27 | Diagnostic Imaging Report ---
EXAM: CHEST SINGLE (PORTABLE) DATE: 06/01/2018 10:42 AM INDICATION: Altered level of mental awareness COMPARISON: Chest x-ray, 05/25/2018 FINDINGS: Lines and tubes: None Cardiac silhouette is partially obscured by right chest opacification but is likely normal size. The right hemithorax has become completely opacified since previous exam. There is likely extensive underlying atelectasis as well as pleural effusion since there is little shift of the mediastinum toward the left. The left lung remains expanded and clear without effusion. No pneumothorax. Upper abdomen unremarkable. No acute bony abnormality. IMPRESSION: Marked increase of right pleural fluid and underlying atelectasis with complete opacification of the right hemithorax since last exam. Signed by: Dr. Te Lewis M.D. on 06/01/2018 11:23 AM
[2018-06-01 11:28] LABS: BILIRUBIN,URINE NEGATIVE (NEGATIVE); KETONES,URINE NEGATIVE (NEGATIVE); URINE UROBILINOGEN 0.2 mg/dL (0.2 - 1)
[2018-06-01 11:31] LABS: CREATINE KINASE MB 10.5 ng/mL (0-5.0)
[2018-06-01 11:33] LABS: B-TYPE NATRIURETIC PEPTIDE2 103.2 pg/mL (0-100)
[2018-06-01 11:35] LABS: BACTERIA,URINE RARE /HPF; EPITHELIAL CELLS,URINE RARE /LPF; RBC,URINE 0-5 /HPF (0-5); WBC,URINE (MAN) 0-5 /HPF (0-5)
[2018-06-01] MEDS ORDERED: LACTULOSE SYRUP 20 GM/30 ML UDC PO ONE (12:00)
--- NOTE | 2018-06-01 13:18 | NUR ---
1750 REMOVED OF FLUID FROM THRORCENTESIS PER [facility] NURSE
--- NOTE | 2018-06-01 13:33 | Diagnostic Imaging Report ---
Procedure: Ultrasound-guided right therapeutic thoracentesis. mail machine operator: Gio Del Valle DO Pre-operative diagnosis: Large right pleural effusion Post-operative diagnosis: Moderate right pleural effusion Conscious Sedation: None Additional Medications: Lidocaine 1% for local anesthesia Contrast used: None Estimated blood loss: <5 cc Blood proximal administered: None Implants: None Condition at completion: Stable Disposition: To home DISCUSSION: Informed consent was obtained and documented in the medical record. The patient was placed in the left side down decubitus position. The right posterolateral chest wall was prepped and draped in the standard sterile fashion. A suitable percutaneous intercostal approach to the right pleural space was identified and the overlying skin was infiltrated with 1% lidocaine for local anesthesia. Large right pleural effusion was identified on ultrasound. Then under sonographic guidance, a 5 Kyrgyz Yueh needle catheter was advanced into the pleural space. The catheter was advanced off the needle and connected to vacuum bottle with subsequent evacuation of 1750 cc of slightly cloudy fluid. The catheter was removed and a sterile, occlusive dressing was applied. Postprocedure sonographic image showed improved moderate volume effusion. The patient tolerated the procedure well without immediate complication. Postprocedure chest x-ray was ordered. IMPRESSION: Ultrasound-guided therapeutic right thoracentesis Signed by: Dr. Gio Del Valle DO on 06/01/2018 1:29 PM
--- NOTE | 2018-06-01 13:38 | Diagnostic Imaging Report ---
EXAM: CHEST XRAY POST PROCEDURE, AP Portable DATE: 06/01/2018 Time stamp on exam: 1:12 PM INDICATION: Status post thoracentesis COMPARISON: 06/01/2018 chest x-ray performed at 11:10 AM FINDINGS: LINES/TUBES: None LUNGS: There is right lung compressive atelectasis. PLEURA: A moderate pleural effusion persists. Preprocedure chest x-ray showed a complete total opacification of the right hemithorax. No pneumothorax is identified on this post procedure film. HEART AND MEDIASTINUM: Normal size and contour. BONES AND SOFT TISSUES: No acute findings. IMPRESSION: Moderate right pleural effusion persisting. Signed by: Dr. Gio Del Valle DO on 06/01/2018 1:34 PM
[2018-06-01 16:02] LABS: AMPHETAMINES SCREEN,URINE NEGATIVE (NEGATIVE); BENZODIAZEPINES SCREEN,URINE POSITIVE (NEGATIVE); PHENCYCLIDINE SCREEN,URINE NEGATIVE (NEGATIVE)
[2018-06-01] MEDS ORDERED: DEXTROSE 50% SYRINGE 50 ML IV PRN (16:15)
[2018-06-01 16:26] LABS: CREATINE KINASE MB 10.8 ng/mL (0-5.0)
[2018-06-01] MEDS: INSULIN REGULAR, HUMAN 100 UNIT/1 ML 3ML VIAL SQ SCH ×2 (16:41→21:00)
[2018-06-01 18:14] VITALS: BP 137/84
[2018-06-01 18:57] VITALS: BP 137/84
[2018-06-01 19:58] VITALS: BP 137/84
[2018-06-01 20:00] VITALS: BP 134/87
[2018-06-02] VITALS (8 sets, daily range): BP systolic 118–136; BP diastolic 69–94
[2018-06-02 00:28] LABS: CREATINE KINASE MB 7.1 ng/mL (0-5.0)
[2018-06-02] MEDS ORDERED: RIFAXIMIN 550 MG TABLET PO STA (03:36)
[2018-06-02] MEDS ORDERED: RIFAXIMIN 200 MG TAB PO STA (03:56)
[2018-06-02 05:51] LABS: BASOPHILS % 0.4 % (0.0-1.0); EOSINOPHILS # (AUTO) 0.1 (0.0-0.4); EOSINOPHILS % 1.3 % (0.0-6.0); HEMATOCRIT 32.7 % (34.2-44.1); HEMOGLOBIN 10.7 g/dL (12.0-16.0); LYMPHOCYTES # (AUTO) 1.7 (1.0-3.2); LYMPHOCYTES % 24.3 % (18.0-39.1); MEAN CORPUSCULAR HEMOGLOBIN 29.3 pg (28-32); MEAN CORPUSCULAR HGB CONC 32.7 g/dL (31-35); MEAN CORPUSCULAR VOLUME 89.6 fL (81-99); MONOCYTES # (AUTO) 0.9 (0.2-0.8); MONOCYTES % 13.3 % (4.4-11.3); NEUTROPHILS # (AUTO) 4.1 (2.1-6.9); NEUTROPHILS % 60.4 % (38.7-80.0); PLATELET COUNT 69 x10e3/uL (140-360); RED BLOOD COUNT 3.65 x10e6/uL (3.6-5.1); RED CELL DISTRIBUTION WIDTH 14.6 % (11.7-14.4)
[2018-06-02 06:14] LABS: ALBUMIN 1.8 g/dL (3.5-5.0); ALBUMIN/GLOBULIN RATIO 0.4 (0.8-2.0); ANION GAP 10.6 mmol/L (8-16); CALCIUM 8.2 mg/dL (8.4-10.2); CREATININE, SERUM 2.66 mg/dL (0.57-1.11); POTASSIUM 4.6 mmol/L (3.5-5.1)
[2018-06-02 07:21] LABS: CREATINE KINASE MB 6.9 ng/mL (0-5.0)
[2018-06-02] MEDS: INSULIN REGULAR, HUMAN 100 UNIT/1 ML 3ML VIAL SQ SCH ×4 (07:30→21:00)
[2018-06-02] MEDS: RIFAXIMIN 550 MG TABLET PO SCH ×2 (10:44→17:56)
[2018-06-02] MEDS ORDERED: LACTULOSE SYRUP 20 GM/30 ML UDC PO PRN (12:15)
[2018-06-02] MEDS ORDERED: ALBUMIN 5% 0.05 GM/ML BTL IV ONE (13:00)
[2018-06-02] MEDS: LACTULOSE SYRUP 20 GM/30 ML UDC PO SCH ×2 (13:47→22:38)
[2018-06-02 13:48] LABS: CREATINE KINASE MB 6.4 ng/mL (0-5.0)
--- NOTE | 2018-06-02 14:19 | Consultation ---
DATE OF CONSULTATION: 06/02/2018 CONSULTING PHYSICIAN: Dr. Gallego. HISTORY OF PRESENT ILLNESS: A 58-year-old female, who is known to me from prior admission, recently came here on and Thursday, had thoracentesis and paracentesis done respectively. Subsequently was admitted to the hospital with altered mental status. She states that she is better today. Denies any shortness of breath, nausea, or vomiting. Feels quite weak. She looks very weak, has very poor muscle mass. Renal consult for management of acute kidney injury as well as acidosis. Laboratory test shows white count 6.7, hemoglobin 10.7, potassium 4.6 with a bicarbonate 18, BUN and creatinine 58 and 2.66 respectively. She has a calcium of 8.2 with alkaline phosphatase 176. Ammonia level of 185. Albumin 1.8. ALLERGIES: NO APPARENT DRUG ALLERGIES. SOCIAL HISTORY: Does not smoke or drink. FAMILY HISTORY: Significant for hypertension. CURRENT MEDICATIONS: Currently on rifaximin 550 mg p.o. b.i.d. She is also on insulin. Workup included a chest x-ray, which was done on the . Please see official report, shows persisting right-sided moderate effusion. She also had head CT done, which shows no acute fractures or dislocations. No acute traumatic intracranial abnormality. So far, urine and blood cultures were negative. PAST MEDICAL HISTORY: Significant for type 2 diabetes, history of cirrhosis secondary to alcoholism, portal hypertension, recurrent ascites and paracentesis, recurrent pleural effusion and thoracentesis, history of hypertension, history of chronic kidney disease in the past, and history of right oophorectomy. SOCIAL HISTORY: The patient does not smoke or drink. FAMILY HISTORY: Significant for cancer in uncle. PHYSICAL EXAMINATION: GENERAL: Awake, alert, lying supine, in no apparent distress. VITAL SIGNS: Blood pressure 124/69, pulse rate 82, afebrile, oxygen saturation 100% on room air. HEAD AND NECK: Cornea clear. Oral mucosa dry. Neck veins flat. LUNGS: Decreased air entry in right lower zone with mildly impaired percussion mostly lower third. Left lung field clear. No rales bilaterally. HEART: S1 and S2 audible. Soft 2 to 3/6 ejection systolic murmur in the left sternal border. ABDOMEN: Otherwise distended, but soft and nontender. No apparent visceromegaly. LOWER EXTREMITIES: No edema. IMPRESSION: Acute kidney injury with superimposed chronic kidney disease, stage 3 most likely, must rule out hepatorenal syndrome. Underlying distal renal tubular acidosis. PLAN: We are working up. I will obtain urine sodium and urine creatinine to calculate fractional excretion of sodium. We will give IV albumin, resuscitate volume, and . Ammonia level is elevated, we will start IV lactulose, gentle hydration. Medications reviewed. Discussed with RN earlier. Grey Jacinto MD SAK/MODL /[id number]
--- NOTE | 2018-06-02 15:20 | Diagnostic Imaging Report ---
EXAMINATION: Renal ultrasound. CLINICAL HISTORY :Acute kidney injury COMPARISON: Abdominal ultrasound 11/19/2017 TECHNIQUE: Grayscale and color Doppler evaluation of the kidneys and bladder was performed in transverse and longitudinal planes. DISCUSSION: RIGHT KIDNEY: The right kidney measures 10.2 cm in length and shows normal renal cortical echogenicity. No hydronephrosis, shadowing calculi or solid mass lesions. LEFT KIDNEY: The left kidney measures 10.8 cm in length and shows normal renal cortical echogenicity. No hydronephrosis, shadowing calculi or solid mass lesions. BLADDER: Poorly visualized secondary to overlying bowel gas Incidental note of abdominal ascites. IMPRESSION: Unremarkable sonographic appearance of the kidneys. Ascites. Signed by: Dr. Thee Hong M.D. on 06/02/2018 3:17 PM
[2018-06-02] MEDS: SODIUM BICARBONATE 650 MG TAB PO SCH (17:56)
--- NOTE | 2018-06-02 20:15 | NUR ---
PATIENT RESTING QUIETLY IN BED, NO RESPIRATORY DISTRESS OBSERVED. ABDOMEN LARGE AND SOFT, PATIENT STATED SHE JUST HAD A BOWEL MOVEMENT. NO PAIN VOICED, CALL LIGHT WITHIN EASY REACH, SHE'S INSTRUCTED TO CALL FOR ASSISTANCE NEEDED.
[2018-06-02 20:21] LABS: BILIRUBIN,URINE NEGATIVE (NEGATIVE); CLARITY,URINE SL CLOUDY (CLEAR); COLOR,URINE YELLOW (YELLOW); KETONES,URINE NEGATIVE (NEGATIVE); LEUKOCYTE ESTERASE ,URINE NEGATIVE (NEGATIVE); NITRITE,URINE NEGATIVE (NEGATIVE); PROTEIN,URINE DIPSTICK NEGATIVE (NEGATIVE); URINE UROBILINOGEN 0.2 mg/dL (0.2 - 1)
[2018-06-02 20:40] LABS: BACTERIA,URINE RARE /HPF
[2018-06-02 20:41] LABS: EPITHELIAL CELLS,URINE MODERATE /LPF; HYALINE CASTS 0-1 (0-1)
[2018-06-02 20:45] LABS: CREATININE,URINE RANDOM 93.54 mg/dL (47-110); TOTAL PROTEIN, URINE 16.7 mg/dL (1-14)
[2018-06-03] VITALS: BP 137/87
--- NOTE | 2018-06-03 00:07 | NUR ---
NO RESPIRATORY DISTRESS OBSERVED, PATIENT DENIES PAIN. ASSISTED WITH ADLS, BED ALARM ON AND CALL LIGHT WITHIN EASY REACH.
[2018-06-03 04:00] VITALS: BP 119/75
--- NOTE | 2018-06-03 04:39 | NUR ---
PATIENT IS ASLEEP, SHE'S EASY TO AROUSE. NO RESPIRATORY DISTRESS OBSERVED, SHE DENIES PAIN. CALL LIGHT WITHIN EASY REACH, SHE'S INSTRUCTED TO CALL FOR ASSISTANCE NEEDED.
--- NOTE | 2018-06-03 04:53 | Consultation ---
DATE OF CONSULTATION: 06/02/2018 Pulmonary Medicine Consultation REASON FOR REFERRAL: Recurrent pleural effusion. HISTORY OF PRESENT ILLNESS: Mrs. Greene is a pleasant 58-year-old female with recurrent pleural effusion. The patient is well-known to me starting from previous hospitalization. She has advanced liver disease. She has been diagnosed with hepatic hydrothorax. Team decision was made and consideration works for serial drainages of her pleural space. Due to her very fragile state, we have elected for outpatient thoracentesis in repeated manner. She often gets 1.6 to 2 L removed during thoracentesis. She has been getting her thoracentesis once a week for the last month. She also gets once a week paracentesis. The patient presented for thoracentesis at this time. On June 01, 2018, the patient had 1.75 L removed of pleural fluid. However, the patient had altered mental status. The patient was not recommended for discharge and she was referred for hospitalization. She was admitted by PCP and I am consulted to assist. Postoperative chest x-ray shows moderate right-sided pleural effusion persisting, but there is significant improvement from preprocedure chest x-ray. PAST MEDICAL HISTORY: Cirrhosis, alcoholic, diabetes, CKD, hepatic hydrothorax. MEDICATIONS: Medication list reviewed at this time and as per electronic record. ALLERGIES: NO KNOWN DRUG ALLERGIES. SOCIAL HISTORY: She smoked cigarettes for only 2-3 years . No illegal drugs. She drank a 12-pack of alcohol a day from age 11 to 56. 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 FAMILY HISTORY: Noncontributory. REVIEW OF SYSTEMS: GENERAL: No malaise. OPHTHALMOLOGIC: No double vision. ENT: No mouth ulcers. PULMONARY: No hemoptysis. CARDIAC: No recent arrhythmia. GI: There is no constipation. : No blood in urine. DERMATOLOGIC: No rashes. PSYCHIATRIC: No depression. NEUROLOGIC: No seizures. PSYCHIATRIC: No depression. MUSCULOSKELETAL: Mild arthritis. OBJECTIVE: VITAL SIGNS: Afebrile, vital signs noted and reviewed per the chart record. GENERAL: In no acute distress right now, appears chronic and weak and still with some mild confusion. HEENT: Normocephalic, atraumatic. NECK: Supple. Throat midline. LUNGS: Bilateral air entry, decreased breath sounds, especially on the right side. CARDIOVASCULAR: S1, S2. No murmurs, rubs, or gallops. ABDOMEN: Soft, nontender. EXTREMITIES: No clubbing, no cyanosis, no edema. INTEGUMENT: No rash. No purpura. LABORATORY DATA: Labs and x-ray reviewed per the chart record. Current BUN is 58 and creatinine is 2.7. Glucose is 68. INR is 1.06. IMPRESSION AND PLAN: 1. Recurrent massive right-sided pleural effusion, hepatic hydrothorax. 2. Recurrent ascites. 3. Chronic kidney failure, predominantly hepatorenal likely. 4. Former alcohol dependency. 5. Cirrhosis due to alcoholism. 6. Diabetes. 7. Severe protein-calorie malnutrition. At this time, we will continue serial evaluation. If the patient stabilizes, we will consider repeat thoracentesis in the next day or two. Follow up creatinine. Of course, kidney stabilization is paramount. Continue to work with GI to get the patient towards liver transplant evaluation. Thank you very much, Dr. Gallego for allowing me a chance to participate in the care of Mrs. Greene. Do not hesitate to contact me if I can help in any way. MD MARLON Narvaez/MAGDY /[id number]
[2018-06-03 06:11] LABS: ALBUMIN/GLOBULIN RATIO 0.5 (0.8-2.0); ANION GAP 10.6 mmol/L (8-16); CALCIUM 8.3 mg/dL (8.4-10.2); CREATININE, SERUM 2.26 mg/dL (0.57-1.11); POTASSIUM 3.6 mmol/L (3.5-5.1)
[2018-06-03] MEDS: LACTULOSE SYRUP 20 GM/30 ML UDC PO SCH ×2 (06:22→14:48)
[2018-06-03] MEDS: INSULIN REGULAR, HUMAN 100 UNIT/1 ML 3ML VIAL SQ SCH ×3 (07:30→16:30)
[2018-06-03 07:33] VITALS: BP 137/88
[2018-06-03] MEDS: RIFAXIMIN 550 MG TABLET PO SCH ×2 (09:00→17:57)
[2018-06-03] MEDS: SODIUM BICARBONATE 650 MG TAB PO SCH ×2 (09:00→17:57)
--- NOTE | 2018-06-03 11:15 | Diagnostic Imaging Report ---
Procedure: Ultrasound-guided therapeutic paracentesis Pre-operative diagnosis: Moderate volume ascites Post-operative diagnosis: Resolution of ascites post paracentesis Conscious Sedation: None Additional Medications: Lidocaine 1% for local anesthesia Estimated blood loss: None Specimens: None Implants: None Condition at completion: Stable Disposition: Recovery in floor DISCUSSION: Informed consent was obtained and documented in the medical record after discussion of risks and benefits. Preliminary sonographic evaluation confirmed moderate volume ascites. A suitable percutaneous approach in the left lower quadrant abdomen was identified and the overlying skin was prepped and draped in standard sterile fashion. 1% lidocaine was infiltrated into the skin and subcutaneous tissues for local anesthesia. Then under continuous sonographic guidance, a 5 Hebrew Yueh needle catheter was advanced into the peritoneal space with removal of 3350 cc of serous yellow fluid. Post procedural ultrasound demonstrated resolution of ascites. The catheter was removed and a sterile dressing was applied. The patient tolerated the procedure well without immediate complication. IMPRESSION: Ultrasound-guided therapeutic paracentesis with removal of 3350 cc of serous yellow fluid. Signed by: Dr. Caitlin Lee MD on 06/03/2018 11:12 AM
[2018-06-03 11:20] VITALS: BP 114/74
[2018-06-03 15:24] VITALS: BP 99/61
--- NOTE | 2018-06-03 15:41 | NUR ---
Nutrition Screen Note RD Recommendation for Physician: Continue diet as ordered Plan of Care: RD following, monitoring for adequacy and tolerance Nutrition reason for involvement: Nutrition Risk Trigger - MST Primary Diagnose(s):Altered mental status, cirrhosis Ht:64 in Wt:150.38lbs BMI:25.8 kg/m2 IBW:120lbs RD Assessment:(06/03/2018) Initial encounter with patient. Diet advanced to a renal diet and Pt ate most of tray. Pt with a Hx of ETOH abuse and liver cirrhosis. Pt has ascites. Pt with hollow orbitals and prominent clavicle. Loss of lean body mass noted in bilateral upper and lower extremities. Pt experiences altered mental status due to encephalopathy. Involuntary wt loss. Malnutrition Current Diet: Renal diet Malnutrition Evaluation (06/03/2018l) The patient meets criteria for unspecified SEVERE protein-calorie malnutrition. Energy intake: <75% of estimated energy requirements for >3 months < Weight loss: >10% in 6 months (Chronic) Fat loss:Severe, Muscle loss: Severe, Supporting Evidence: Fluid accumulation: ascites Functional Status: none Diet Education Needs Assessment: Diet education not indicated. Diet Adequacy: Meeting calorie needs, Meeting protein needs, Meeting fluid needs Tolerance: Tolerating PO Nutrition Care Level: betito Porras RD, LD, CNSC
--- NOTE | 2018-06-03 15:48 | NUR ---
Nurse called Dr. Criselda Jacinto office 3 times in order for confirmation for pt to be DC today. Dr. Criselda Gallego gave order for pt to get DC after paracentesis today. Pt is stable, alert and oriented.
--- NOTE | 2018-06-04 04:04 | Progress Note ---
DATE: 06/02/2018 Pulmonary Medicine Progress Note SUBJECTIVE: Ms. Greene was seen and examined at bedside. She is on room air FiO2. She has better mentation today. She went for paracentesis today. She is eating some of her diet. REVIEW OF SYSTEMS: No headaches, no bleeding. OBJECTIVE: VITAL SIGNS: Afebrile, vital signs noted per the chart record. GENERAL: No acute distress, alert, calm and looking a little bit sharper. HEENT: Normocephalic, atraumatic. NECK: Supple. Throat midline. LUNGS: Bilateral air entry, decreased breath sounds bilaterally. CARDIOVASCULAR: S1, S2. No murmurs, rubs, or gallops. ABDOMEN: Soft, nontender. EXTREMITIES: No clubbing, no cyanosis. There is no edema. INTEGUMENT: No rash or purpura. IMPRESSION AND PLAN: 1. Encephalopathy, lactulose noncompliance. 2. Massive right-sided pleural effusion status post thoracentesis. 3. Recurrent ascites. 4. Hepatic hydrothorax. Paracentesis was done today. Followup in the office for ascites. The patient will be considered for thoracentesis, if not I have paracentesis repeat ordered on Thursday. Continue to mobilize the patient. Encourage diet. MD MARLON Narvaez/MAGDY /[id number]
--- NOTE | 2018-06-04 04:23 | Discharge Summary ---
HOSPITAL COURSE: Ms. Greene is a 58-year-old female with history of alcohol abuse, liver cirrhosis, recurrent hospitalizations with recurrent ascites and hydrothorax that she gets drained once a week, came to the emergency room because after having a thoracentesis, she just started feeling like she was kind of confused, so she was admitted to the hospital. Ammonia levels were elevated. The patient has been seen by Dr. Gutierrez, who is her regular pulmonary doctor, Dr. Jacinto, and Dr. Audi Watson. She is going to have paracentesis done today and if it is stable, we are going to discharge her home and have her follow up as an outpatient. PHYSICAL EXAMINATION: GENERAL: Today, she is awake and alert. VITAL SIGNS: Temperature is 98.8, blood pressure is 137/88. HEART: Regular rate. LUNGS: Decreased breath sounds ABDOMEN: Distended and soft. LABORATORY DATA: On the blood work, potassium 3.6, creatinine 2.26, glucose is 89. White count is 6.79, hemoglobin 10.7, hematocrit 32.7, and a bilateral renal ultrasound on admission that shows unremarkable sonogram and had a chest x-ray done that shows more a right pleural effusion. She had a head CT that was negative. ASSESSMENT AND PLAN: On this patient, 1. Liver cirrhosis with frequent ascites. 2. Hepatic encephalopathy. 3. Hyperammonemia. 4. Recurrent massive right-sided pleural effusion, hepatic hydrothorax. 5. Chronic kidney disease stage 4. 6. Diabetes type 2. 7. Protein-calorie malnutrition. The plan at present time is to discharge the patient home if it is okay with all the consultants. She is going to go for a paracentesis today and continue her home medications and have her follow up with me as an outpatient. All this was discussed with the patient. All questions were answered to satisfaction. Please see home medication reconciliation. MD MURAIL Matos/MODL /[id number]
--- NOTE | 2018-06-08 11:10 | Diagnostic Imaging Report ---
EXAM: CHEST XRAY POST PROCEDURE, AP Portable DATE: 06/08/2018 Time stamp on exam: 10:43 AM INDICATION: Status post thoracentesis COMPARISON: 06/01/2018 FINDINGS: LINES/TUBES: None LUNGS: Right lung compressive atelectasis. PLEURA: Moderate right pleural effusion is present. HEART AND MEDIASTINUM: Normal size and contour. BONES AND SOFT TISSUES: Degenerative changes of the spine are noted. IMPRESSION: #1. Moderate residual pleural effusion status post thoracentesis. #2. No evidence of a pneumothorax. Signed by: Dr. Gio Del Valle DO on 06/08/2018 11:07 AM
== END 2018-06-03 19:15 | disposition home or self-care (01) ==
LOC: ER 10:41 → ERHOLD 16:36 → IMCU 18:06
PROVIDERS: ADMIT Internal Medicine; ATTEND Internal Medicine
DX: K70.31 Alcoholic cirrhosis of liver with ascites (principal); J94.8 Other specified pleural conditions; K72.90 Hepatic failure, unspecified without coma; E78.5 Hyperlipidemia, unspecified; F10.21 Alcohol dependence, in remission; S00.81XA Abrasion of other part of head, initial encounter; W19.XXXA Unspecified fall, initial encounter; J90 Pleural effusion, not elsewhere classified; I50.9 Heart failure, unspecified; I13.0 Hypertensive heart and chronic kidney disease with heart failure and stage 1 through stage 4 chronic kidney disease, or unspecified chronic kidney disease; N18.4 Chronic kidney disease, stage 4 (severe); E11.22 Type 2 diabetes mellitus with diabetic chronic kidney disease; N17.9 Acute kidney failure, unspecified; N25.89 Other disorders resulting from impaired renal tubular function; E43 Unspecified severe protein-calorie malnutrition; Z68.24 Body mass index [BMI] 24.0-24.9, adult; Z91.19 Patient's noncompliance with other medical treatment and regimen
CPT/HCPCS: 32555; 36415 ×3; 49083; 70450; 71045 ×2; 72125; 74470 ×2; 76770; 80053 ×3; 80307; 81001 ×2; 82140 ×3; 82150; 82550 ×2; 82553 ×2; 82570; 82948 ×3; 83605; 83690; 83735; 83880; 84156; 84300; 84484 ×2; 84550; 85025 ×2; 85610; 85730; 87040; 87086; 93005; 97116; 97161; 99284; C1729; G0378 ×3

== ENCOUNTER → 2018-06-01 | Outpatient (CLI) | payer BC ==
[~2018-06-01] MED LIST changes: +SODIUM CHLORIDE 0.9% 50ML 50 ML ONE
[2018-06-01 10:15] LABS: BASOPHILS % 0.5 % (0.0-1.0); EOSINOPHILS % 0.6 % (0.0-6.0); HEMATOCRIT 34.2 % (34.2-44.1); HEMOGLOBIN 11.5 g/dL (12.0-16.0); LYMPHOCYTES # (AUTO) 1.3 (1.0-3.2); LYMPHOCYTES % 20.5 % (18.0-39.1); MEAN CORPUSCULAR HEMOGLOBIN 29.6 pg (28-32); MEAN CORPUSCULAR HGB CONC 33.6 g/dL (31-35); MEAN CORPUSCULAR VOLUME 87.9 fL (81-99); MONOCYTES # (AUTO) 0.8 (0.2-0.8); MONOCYTES % 12.5 % (4.4-11.3); NEUTROPHILS # (AUTO) 4.3 (2.1-6.9); NEUTROPHILS % 65.6 % (38.7-80.0); PLATELET COUNT 78 x10e3/uL (140-360); RED BLOOD COUNT 3.89 x10e6/uL (3.6-5.1); RED CELL DISTRIBUTION WIDTH 14.6 % (11.7-14.4)
[2018-06-01 10:24] LABS: CREATININE, SERUM 2.48 mg/dL (0.57-1.11)
[2018-06-01 10:31] LABS: INR 1.08; PROTHROMBIN TIME 14.5 seconds (11.9-14.5)
[2018-06-01 10:32] LABS: PARTIAL THROMBOPLASTIN TIME 37.1 seconds (23.8-35.5)
== END ==
LOC: US 09:07
PROVIDERS: ATTEND Internal Medicine Critical Care Medicine
DX: J90 Pleural effusion, not elsewhere classified (principal); R18.8 Other ascites
CPT/HCPCS: 36415; 82565; 84520; 85025; 85610; 85730

== ENCOUNTER → 2018-06-08 | Outpatient (CLI) | payer BC ==
--- NOTE | 2018-06-08 11:08 | Diagnostic Imaging Report ---
Procedure: Ultrasound-guided right therapeutic thoracentesis. instant printer operator: Gio Del Valle DO Pre-operative diagnosis: Large right pleural effusion Post-operative diagnosis: Small-moderate right pleural effusion Conscious Sedation: None Additional Medications: Lidocaine 1% for local anesthesia Contrast used: None Estimated blood loss: <5 cc Blood proximal administered: None Implants: None Condition at completion: Stable Disposition: To home DISCUSSION: Informed consent was obtained and documented in the medical record. The patient was placed in the sitting position. The right posterior chest wall was prepped and draped in the standard full barrier sterile fashion. A suitable percutaneous intercostal approach to the right pleural space was identified and the overlying skin was infiltrated with 1% lidocaine for local anesthesia. Large right pleural effusion was identified on ultrasound. Then under sonographic guidance, a 5 Sudanese Yueh needle catheter was advanced into the pleural space. The catheter was advanced off the needle and connected to vacuum bottle with subsequent evacuation of 2,250 cc of slightly cloudy fluid. The catheter was removed and a dressing was applied. Postprocedure sonographic image showed improved small-moderate volume effusion. The patient tolerated the procedure well without immediate complication. Postprocedure chest x-ray was ordered. IMPRESSION: Ultrasound-guided therapeutic right thoracentesis Signed by: Dr. Gio Del Valle DO on 06/08/2018 11:04 AM
== END ==
LOC: US 09:00
PROVIDERS: ATTEND Internal Medicine Critical Care Medicine
DX: J90 Pleural effusion, not elsewhere classified (principal)
CPT/HCPCS: 32555

== ENCOUNTER → 2018-06-10 | Outpatient (CLI) | payer BC ==
--- NOTE | 2018-06-10 10:46 | Diagnostic Imaging Report ---
Procedure: Ultrasound-guided diagnostic and therapeutic paracentesis Pre-operative diagnosis: Moderate to large volume ascites Post-operative diagnosis: Resolution of ascites post paracentesis Conscious Sedation: None Additional Medications: Lidocaine 1% for local anesthesia Estimated blood loss: None Specimens: 4350 cc of serous yellow fluid. Implants: None Condition at completion: Stable Disposition: To home. DISCUSSION: Informed consent was obtained and documented in the medical record after discussion of risks and benefits. Preliminary sonographic evaluation confirmed moderate to large volume ascites. A suitable percutaneous approach in the right mid abdomen was identified and the overlying skin was prepped and draped in standard sterile fashion. 1% lidocaine was infiltrated into the skin and subcutaneous tissues for local anesthesia. Then under continuous sonographic guidance, a 5 Yemeni Yueh needle catheter was advanced into the peritoneal space with removal of 4350 cc of serous yellow fluid. Sample was sent to the lab. Post procedural ultrasound demonstrated resolution of ascites. The catheter was removed. Given mild bloody oozing from the access site, 2 minutes of compression was held and Dermabond applied. Hemostasis was archived. A sterile dressing was applied. The patient tolerated the procedure well without immediate complication. IMPRESSION: Ultrasound-guided diagnostic and therapeutic paracentesis with removal of 4350 cc of serous yellow fluid. Signed by: Dr. Caitlin Lee MD on 06/10/2018 10:43 AM
[2018-06-10 11:42] LABS: RBC,BODY FLUID 393 cells/uL; WBC,BODY FLUID 44 cells/uL
[2018-06-10 11:44] LABS: BODY FLUID TYPE ASCITIES
[2018-06-10 11:45] LABS: BODY FLUID APPEARANCE SL.CLOUDY; BODY FLUID COLOR COLORLESS
[2018-06-10 12:51] LABS: LYMPHOCYTES,BODY FLUID 58 %; MONO/MACROPHG,BODY FLUID 32 %; NEUTROPHILS,BODY FLUID 2 %
[2018-06-10 13:05] LABS: OTHER CELLS,BODY FLUID 8 %
== END ==
LOC: US 09:08
PROVIDERS: ATTEND Internal Medicine Gastroenterology
DX: D69.6 Thrombocytopenia, unspecified (principal)
CPT/HCPCS: 36415; 49083; 82040; 82150; 82945; 83615; 83986; 84157; 84478; 87070; 87116; 87205; 87206; 89051; C1729

== ENCOUNTER 2018-06-12 15:20 | Observation (INO) | payer BC ==
[~2018-06-12] VITALS: Ht 162.6 cm; Wt 63.5 kg
[2018-06-12] MEDS ORDERED: SODIUM CHLORIDE 0.9% 1000ML 1,000 ML IV STA (16:56)
[2018-06-12 18:07] LABS: BASOPHILS % 0.4 % (0.0-1.0); EOSINOPHILS % 0.6 % (0.0-6.0); HEMATOCRIT 36.7 % (34.2-44.1); HEMOGLOBIN 12.7 g/dL (12.0-16.0); INR 1.08; LYMPHOCYTES # (AUTO) 1.5 (1.0-3.2); LYMPHOCYTES % 21.8 % (18.0-39.1); MEAN CORPUSCULAR HEMOGLOBIN 30.1 pg (28-32); MEAN CORPUSCULAR HGB CONC 34.6 g/dL (31-35); MONOCYTES # (AUTO) 0.8 (0.2-0.8); MONOCYTES % 10.9 % (4.4-11.3); NEUTROPHILS # (AUTO) 4.5 (2.1-6.9); PARTIAL THROMBOPLASTIN TIME 30.5 seconds (23.8-35.5); PLATELET COUNT 119 x10e3/uL (140-360); PROTHROMBIN TIME 14.5 seconds (11.9-14.5); RED BLOOD COUNT 4.22 x10e6/uL (3.6-5.1); RED CELL DISTRIBUTION WIDTH 15.3 % (11.7-14.4)
--- NOTE | 2018-06-12 18:11 | Diagnostic Imaging Report ---
ADDENDUM #1 Agree with preliminary report Signed by: DR Koffi Chandler M.D. on 06/12/2018 6:42 PM ORIGINAL REPORT Exam: Noncontrast Head CT History: 58-year-old female with altered mental status Comparison studies: Head CT dated 06/01/2018 Technique: Axial images were obtained from the skull base to the vertex. Coronal and sagittal reconstructions obtained from the axial data. Dose modulation, iterative reconstruction, and/or weight based adjustment of the mA/kV was utilized to reduce the radiation dose to as low as reasonably achievable. Findings: Limited study due to patient motion Scalp/skull: No abnormalities. No fractures, blastic or lytic lesions. Extra-axial spaces: No masses. No fluid collections. Brain sulci: Appropriate for age. Ventricles: Normal in size and configuration. No hydrocephalus. Parenchyma: No abnormal densities. No masses, hemorrhage, acute or chronic cortical vascular insults. Sellar/suprasellar region: No abnormalities Craniocervical junction: Patent foramen magnum. No Chiari one malformation. IMPRESSION: No acute abnormality within the limitations of this study. Report dictated by neuroradiology fellow. Final read to follow. Signed by: Marino Torres MD on 06/12/2018 6:08 PM
--- NOTE | 2018-06-12 18:13 | NUR ---
STRAIGHT CATH PERFORMED AT 1807 REMOVED 181 NO COMPLICATIONS PER MD ORDERS FOR URINE SPECIMEN
[2018-06-12 18:16] LABS: ALBUMIN 2.2 g/dL (3.5-5.0); ALBUMIN/GLOBULIN RATIO 0.4 (0.8-2.0); ANION GAP 17.3 mmol/L (8-16); CREATININE, SERUM 3.69 mg/dL (0.57-1.11); MAGNESIUM 1.9 MG/DL (1.3-2.1)
[2018-06-12] MEDS ORDERED: LACTULOSE SYRUP 20 GM/30 ML UDC PO ONE (18:30)
[2018-06-12] MEDS ORDERED: DEXTROSE 50% SYRINGE 50 ML IV STA (18:32)
[2018-06-12 18:33] LABS: POTASSIUM 7.3 mmol/L (3.5-5.1)
--- NOTE | 2018-06-12 18:34 | Diagnostic Imaging Report ---
EXAMINATION: CHEST SINGLE (PORTABLE) INDICATION: ^ERMD ORDER ^[id number] ^1745 ^Y COMPARISON: Chest x-ray 06/08/2018 and ultrasound abdomen 06/10/2018 FINDINGS: AP view TUBES and LINES: None. LUNGS/PLEURA: Lungs are well inflated. Worsening large right pleural effusion with complete opacification of the right hemithorax and slight leftward deviation of the trachea. Partial collapse of the right lung. Left lung is clear. HEART AND MEDIASTINUM: The cardiomediastinal silhouette is unremarkable.. BONES AND SOFT TISSUES: No acute osseous lesion. Soft tissues are unremarkable. UPPER ABDOMEN: No free air under the diaphragm. IMPRESSION: Large right pleural effusion with complete opacification of the right hemithorax, worse when compared to 06/08/2018. Signed by: Dr. Krystyna Hollingsworth M.D. on 06/12/2018 6:31 PM
[2018-06-12 18:36] LABS: CREATINE KINASE MB 6.9 ng/mL (0-5.0); THYROID STIMULATING HORMONE 2.87 uIU/mL (0.350-4.940)
[2018-06-12 18:37] LABS: B-TYPE NATRIURETIC PEPTIDE2 37.4 pg/mL (0-100)
[2018-06-12] MEDS ORDERED: SOD POLYSTYRENE SULFONATE SUSP 15 GM/60 ML BTL PO ONE (18:45)
[2018-06-12] MEDS ORDERED: INSULIN REGULAR, HUMAN 100 UNIT/1 ML 3ML VIAL IV ONE (18:45)
[2018-06-12 18:50] LABS: BILIRUBIN,URINE NEGATIVE (NEGATIVE); CLARITY,URINE CLEAR (CLEAR); COLOR,URINE YELLOW (YELLOW); KETONES,URINE NEGATIVE (NEGATIVE); LEUKOCYTE ESTERASE ,URINE NEGATIVE (NEGATIVE); NITRITE,URINE NEGATIVE (NEGATIVE); PROTEIN,URINE DIPSTICK NEGATIVE (NEGATIVE); URINE UROBILINOGEN 0.2 mg/dL (0.2 - 1)
[2018-06-12] MEDS ORDERED: CALCIUM GLUCONATE 10% INJ 4.65 MEQ in SODIUM CHLORIDE 0.9% 50ML 50 ML IV ONE (18:50)
[2018-06-12 18:54] LABS: AMORPHOUS SEDIMENT,URINE MODERATE (FEW); BACTERIA,URINE MANY /HPF; EPITHELIAL CELLS,URINE FEW /LPF; RENAL EPITHELIAL CELLS,URINE FEW; TRANSITIONAL EPI CELLS,URINE FEW
--- NOTE | 2018-06-12 20:15 | NUR ---
patient is a new admit that arrived via stretcher. patient is restless and showing signs of discomfort. patient has been transferred into the bed. patient arrived accompanied by and other family members. will medicate patient with prn morphine and zofran to assist with patient comfort.
[2018-06-12 20:48] VITALS: BP 109/75
[2018-06-12 20:51] VITALS: BP 109/75
--- NOTE | 2018-06-12 21:00 | NUR ---
patient has been medicated with prn morphine and zofran. will continue to monitor patient for discomfort.
[2018-06-12] MEDS: MORPHINE SULFATE INJ 4 MG/ML INJ 1ML IV PRN (21:33)
[2018-06-12] MEDS: ONDANSETRON HCL INJ 2MG/ML 2ML 2 MG/ML VIAL IV PRN (21:33)
--- NOTE | 2018-06-12 22:30 | NUR ---
patient has just been checked on. patient is resting comfortably in bed. no signs of pain or discomfort noted in patient. respirations are even and unlabored. bed is in lowest position and call garcia is within reach. will continue to monitor patient.
[2018-06-13] VITALS (7 sets, daily range): BP systolic 94–137; BP diastolic 52–80
--- NOTE | 2018-06-13 00:19 | NUR ---
patient has been checked on. respirations are even and unlabored. no signs of pain or discomfort noted. bed is in lowest position and call garcia is within reach. will continue to monitor patient.
--- NOTE | 2018-06-13 02:20 | NUR ---
patient has been assessed. patient is asleep comfortably in the bed. no signs of pain or discomfort noted. respirations are even and unlabored. bed is in lowest position and call garcia is within reach. will continue to monitor patient.
[2018-06-13] MEDS: ONDANSETRON HCL INJ 2MG/ML 2ML 2 MG/ML VIAL IV PRN ×3 (04:15→19:14)
[2018-06-13] MEDS: MORPHINE SULFATE INJ 4 MG/ML INJ 1ML IV PRN ×4 (04:15→19:14)
--- NOTE | 2018-06-13 04:15 | NUR ---
patient is showing signs of discomfort and pain. patient will be medicated with prn morphine and zofran. will continue to monitor patient for pain.
--- NOTE | 2018-06-13 06:18 | NUR ---
patient's diaper has been checked for urine or stool. diaper is clean and dry. family is requesting patient be given another dose of morphine to keep patient comfortable. family request acknowledged, patient will be given another dose of morphine in accordance with physicians orders.
--- NOTE | 2018-06-13 06:48 | NUR ---
report given to day nurse. patient is asleep in bed. respirations are even and unlabored.
--- NOTE | 2018-06-13 08:15 | NUR ---
Call recvd from [facility] regarding patient care, patient diagnosis and information given with permission of, Yamila Jc and Mark carr. Case No; [id number], call back No: [phone]
[2018-06-13 11:36] LABS: BASOPHILS % 0.3 % (0.0-1.0); EOSINOPHILS % 0.4 % (0.0-6.0); HEMATOCRIT 34.8 % (34.2-44.1); HEMOGLOBIN 11.9 g/dL (12.0-16.0); LYMPHOCYTES # (AUTO) 1.8 (1.0-3.2); LYMPHOCYTES % 23.4 % (18.0-39.1); MEAN CORPUSCULAR HEMOGLOBIN 30.1 pg (28-32); MEAN CORPUSCULAR HGB CONC 34.2 g/dL (31-35); MEAN CORPUSCULAR VOLUME 88.1 fL (81-99); MONOCYTES # (AUTO) 1.1 (0.2-0.8); MONOCYTES % 13.4 % (4.4-11.3); NEUTROPHILS # (AUTO) 4.9 (2.1-6.9); NEUTROPHILS % 62.4 % (38.7-80.0); PLATELET COUNT 103 x10e3/uL (140-360); RED BLOOD COUNT 3.95 x10e6/uL (3.6-5.1); RED CELL DISTRIBUTION WIDTH 15.5 % (11.7-14.4)
[2018-06-13 11:55] LABS: ALBUMIN 2.2 g/dL (3.5-5.0); ALBUMIN/GLOBULIN RATIO 0.4 (0.8-2.0); CREATININE, SERUM 3.91 mg/dL (0.57-1.11)
[2018-06-13 12:50] LABS: ANION GAP 14.4 mmol/L (8-16)
[2018-06-13 12:54] LABS: POTASSIUM 8.4 mmol/L (3.5-5.1)
--- NOTE | 2018-06-13 13:06 | NUR ---
Paged Dr Vega (paving stone installer) regarding critical Labs potassium 8.4 and Blood Glucose 59. Recvd call and No new order from Dr Vega, he stated family wants the patient to be comfort and Cancel the labs for tomorrow
--- NOTE | 2018-06-13 13:18 | History and Physical ---
CHIEF COMPLAINT: Confused. HISTORY OF PRESENT ILLNESS: This is a 58-year-old woman, who presents to [facility] Emergency Room with a 2-week history of worsening confusion. According to the , 2 days prior to admission, she began experiencing more generalized weakness as well as pain in her bilateral lower extremities. The patient has a history of decompensated alcoholic liver cirrhosis and suffers from recurrent right-sided pleural effusion as well as ascites. Every week here at [facility], the patient undergoes therapeutic paracentesis and right-sided thoracentesis. The patient's last paracentesis was on June 10, 2018 and the last right thoracentesis was Friday, June 08, 2018. In the emergency room soon after arrival, the patient was found to have potassium of 7.3. The patient's BUN and creatinine are 61 and 3.69 respectively. The patient's lactic acid was elevated at 23. The patient's serum bicarbonate is 14. The patient underwent a CT of the brain on admission that did not reveal any acute intracranial abnormality. The patient underwent a chest x- ray soon after admission that reveal a large right pleural effusion with complete opacification of the right hemithorax. The emergency room physician initially spoke to the patient's about pursuing aggressive measures in regard to addressing her acute renal failure as well as hyperkalemia. It was explained to the patient's that she most likely has hepatorenal syndrome. The elected not to pursue any aggressive or invasive treatment for his 's terminal condition. The patient was made a do not resuscitate code status in the emergency room and comfort measures were initiated. REVIEW OF SYSTEMS: GENERAL: The patient's weight has increased in the past 2 weeks according to the . She has also become weaker and more confused. HEENT: She also complained of worsening headaches for the last week. No visual changes. CARDIOVASCULAR/RESPIRATORY: Worsening shortness of breath over the last week. According to the , she did not improve after the last therapeutic right- sided thoracentesis a few days prior to this admission. GI: No nausea, vomiting, diarrhea, or constipation. No melena or hematochezia. : No UTI symptoms. NEUROMUSCULAR: states that over the last few days, she is more confused and has had more pain in her bilateral lower extremities. PAST MEDICAL HISTORY: 1. Decompensated alcoholic liver cirrhosis. 2. Chronic alcoholism (last alcohol drink was in October 2017). 3. Recurrent ascites. 4. Recurrent right-sided pleural effusion. 5. Stage 3 chronic kidney disease. 6. Type 2 diabetes mellitus. ALLERGIES: NO KNOWN DRUG ALLERGIES. SOCIAL HISTORY: This woman is , lives with her . She was a heavy alcohol drinker up until October 2017. According to the , she drank alcohol heavily in the form beer from age 11 to age 56. FAMILY HISTORY: Noncontributory. PAST SURGICAL HISTORY: Ovarian resection. HOME MEDICATIONS: 1. Furosemide 40 mg a day. 2. Lactulose 20 g daily. 3. Lorazepam 0.5 mg every 8 hours p.r.n. anxiety. 4. Nifedipine extended release 30 mg daily. 5. Potassium chloride 10 mEq b.i.d. PHYSICAL EXAMINATION: GENERAL: She is obtunded. She is tachypneic. She looks terminally ill. Numerous family members at bedside. VITAL SIGNS: Height is 5 feet 4 inches, weight 140 pounds, BMI is 24, blood pressure is 137/80, pulse 86, respiratory rate 16, oxygen saturation is 94% on room air, temperature 98.8. INTEGUMENT: Skin is warm and dry. No obvious pallor is appreciated. The patient has no obvious jaundice either. HEENT: Anicteric sclerae. Moist mucous membranes. NECK: Supple. CARDIOVASCULAR: Tachycardic rate and rhythm. LUNGS: Diminished breath sounds in the right lung field. ABDOMEN: Distended from ascites. EXTREMITIES: 2+ edema. NEUROLOGIC: She is not responsive to stimuli and she is obtunded as previously stated. DIAGNOSES: 1. Decompensated alcoholic liver cirrhosis with recurrent ascites and right pleural effusion. 2. Sepsis, likely from right-sided pneumonia. 3. Hepatorenal syndrome. 4. Ohjpf-wz-loromys renal failure secondary to hepatorenal syndrome. 5. Hyperkalemia, secondary to acute renal failure. 6. DNR 3 code status. PLAN: 1. Empathetic listening. 2. Reassurance. 3. We will honor the patient's do not resuscitate code status. 4. Proceed with Palliative/Hospice care. 5. Proceed with comfort measures. 6. We will check electrolytes and renal function, so we can provide the patient with some sort of prognostication. I spoke at length with today in regard to end of life issues. I spent 45 minutes in the care this patient. MD BRIAN Eid/MAGDY /[id number] MTDD
--- NOTE | 2018-06-13 19:14 | NUR ---
RECEIVED REPORT FROM DAY NURSE. PATIENT IS RESTING IN BED. BREATHING IS NOISY. PATIENT'S FAMILY IS REQUESTING PRN MORPHINE TO HELP PATIENT GET MORE COMFORTABLE. PATIENT WILL BE MEDICATED WITH MORPHINE. WILL CONTINUE TO MONITOR PATIENT'S COMFORT LEVEL.
--- NOTE | 2018-06-14 00:13 | NUR ---
walking round done on patient. patient is asleep comfortably in the bed. respirations are not labored. no signs of distress noted. bed is in lowest position and call garcia is within reach. remains at bedside. will continue to monitor patient
[2018-06-14 00:52] VITALS: BP 120/66
--- NOTE | 2018-06-14 03:12 | NUR ---
walking rounds done on patient. patient is asleep in the bed. no signs of distress noted. bed is in lowest position and call garcia is within reach. will continue to monitor patient.
[2018-06-14] MEDS: MORPHINE SULFATE INJ 4 MG/ML INJ 1ML IV PRN ×4 (04:49→13:55)
[2018-06-14] MEDS: ONDANSETRON HCL INJ 2MG/ML 2ML 2 MG/ML VIAL IV PRN ×4 (04:49→15:31)
[2018-06-14 05:09] VITALS: BP 104/61
[2018-06-14 05:11] VITALS: BP 104/61
--- NOTE | 2018-06-14 07:05 | NUR ---
Walking rounds done. Spouse at the bedside. Patient appears comfortable at this time. POC discussed with spouse and instructed to call for assistance as needed and verbalized understanding. Will continue to monitor.
--- NOTE | 2018-06-14 07:07 | NUR ---
report given to day nurse. patient is resting comfortably in bed. bed is in lowest position and call light is within reach.
[2018-06-14 08:00] VITALS: BP 104/61
[2018-06-14 08:39] VITALS: BP 108/63
--- NOTE | 2018-06-14 09:28 | NUR ---
ORDER FOR HOSPICE EVAL CM MET WITH PT'S SON AND [facility] IN ROOM [facility] [phone] DR SHAFER HERE AND SPOKE WITH PT'S SON ABOUT PT'S CONDITION HE AGREES WITH HOSPICE CHOICE LETTER SIGNED AND ON CHART FOR A MED HOSPICE COPY OF CHOICE LETTER TO SON ALONG WITH MY BUSINESS CARD SPOKE WITH JENNIFER FROM [facility] [phone] SHE WILL BE HERE SHORTLY TO GATHER CLINICALS CM TO FOLLOW
--- NOTE | 2018-06-14 12:03 | Progress Note ---
DATE: 06/14/2018 Ms. Greene is a 58-year-old female with a history of liver cirrhosis, history of alcohol abuse, recurrent ascites, and recurrent pleural effusion needing to be tapped every week, stage 3 chronic kidney disease and diabetes, brought to the emergency room by because the patient was starting getting confused and she was very weak with edema of the lower extremities. The patient was admitted yesterday. Head CT showing no acute intracranial abnormalities. She has a large pleural effusion with complete opacification of the right hemithorax and , who spoke with yesterday, I spoke with him today and wants to make her comfortable. He understands that the patient has terminal condition, and he elected not to pursue any aggressive or invasive treatment for his 's terminal condition. The patient was to make DNR and DNI today. PHYSICAL EXAMINATION: VITAL SIGNS : Today, temperature 97.8, blood pressure 109/62. GENERAL: The patient does not talk. She is confused. HEART: Regular rate. LUNGS: . ABDOMEN: Distended with ascites. LOWER EXTREMITY: Bilateral edema. ASSESSMENT AND PLAN: 1. Decompensated terminal alcoholic liver cirrhosis with history of recurrent ascites and right pleural effusion. 2. Sepsis with right-sided pneumonia. 3. Hepatorenal syndrome. 4. Bofnw-fx-mwremmw renal failure. 5. Severe hypokalemia. 6. DNR status. PLAN: At the present time, I had a long talk with her who is making decisions for her and she is going to be DNR/DNI. We are going to get palliative hospice care. We are going to proceed comfort measures as per 's decision and I spent more than 30 minutes talking with in regard to end of life issues and still wants to continue with comfort care measures and he stated he does not want her to suffer anymore. operations research manager will contact hospice. We are awaiting for daughter that is coming from [place] today and the prognosis of this patient is poor. I spent more than 35 minutes examining patient, discussing plan of care and different options with her and reviewing overnight events. MD MURALI Matos/MAGDY /[id number]
[2018-06-14] MEDS ORDERED: SCOPOLAMINE 1.5 MG PATCH TOP SCH (14:15)
--- NOTE | 2018-06-14 16:30 | NUR ---
Dr. Long at bedside and patient pronounced at this time
--- NOTE | 2018-06-14 16:53 | NUR ---
Spoke with [employer]. Spoke with Miller Ojeda. Case # [id number]. Patient is able to donate tissue and eyes.
--- NOTE | 2018-06-14 19:00 | NUR ---
Report given to oncoming nurse. Awaiting home arrival. Family in waiting room
--- NOTE | 2018-06-14 21:52 | NUR ---
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
== END 2018-06-14 16:49 | disposition expired ==
LOC: ER 15:20 → ERHOLD 19:18 → IMCU 20:26
PROVIDERS: ADMIT Internal Medicine; ATTEND Internal Medicine
DX: A41.9 Sepsis, unspecified organism (principal); J18.9 Pneumonia, unspecified organism; Z51.5 Encounter for palliative care; K70.31 Alcoholic cirrhosis of liver with ascites; R65.20 Severe sepsis without septic shock; N17.9 Acute kidney failure, unspecified; Z66 Do not resuscitate; E87.5 Hyperkalemia; K76.7 Hepatorenal syndrome; E11.22 Type 2 diabetes mellitus with diabetic chronic kidney disease; I12.9 Hypertensive chronic kidney disease with stage 1 through stage 4 chronic kidney disease, or unspecified chronic kidney disease; N18.3 Chronic kidney disease, stage 3 (moderate); K72.90 Hepatic failure, unspecified without coma
CPT/HCPCS: 36415 ×2; 70450; 71045; 80053 ×2; 81001; 82140 ×2; 82550; 82553; 83605 ×2; 83690; 83735; 83880; 84443; 84484; 85025 ×2; 85610; 85730; 87040; 87086; 93005; 99285; G0378 ×3; J1817; J2270 ×3; J2405 ×3; J7030; J7799